=== PATIENT | female | born 1970 | race Caucasian/White ===

== ENCOUNTER 2019-08-03 16:56 | Emergency (ER) | payer SELFPAY ==
[2019-08-03 18:12] VITALS: BP 146/93
--- NOTE | 2019-08-03 19:13 | RADIOLOGY REPORT (SQ) ---
EXAM DESCRIPTION: CHEST SINGLE VIEW IMAGES COMPLETED DATE/TIME: 08/03/2019 7:03 pm REASON FOR STUDY: cough COMPARISON: None. EXAM PARAMETERS: NUMBER OF VIEWS: One view. TECHNIQUE: Single frontal radiographic view of the chest acquired. RADIATION DOSE: NA LIMITATIONS: None. FINDINGS: LUNGS AND PLEURA: No opacities, masses or pneumothorax. No pleural effusion. MEDIASTINUM AND HILAR STRUCTURES: No masses. Contour normal. HEART AND VASCULAR STRUCTURES: Heart normal in size. Normal vasculature. BONES: No acute findings. HARDWARE: None in the chest. OTHER: No other significant finding. IMPRESSION: NO ACUTE RADIOGRAPHIC FINDING IN THE CHEST. TECHNICAL DOCUMENTATION: JOB ID: [id number] 2010 [employer]- All Rights Reserved Reading location - IP/workstation name: [email or web address]
== END 2019-08-03 20:30 | disposition left against medical advice (07) ==
LOC: ER 16:56
DX: Z53.21 Procedure and treatment not carried out due to patient leaving prior to being seen by health care provider (principal)
CPT/HCPCS: 71045

== ENCOUNTER 2020-01-18 23:05 | Inpatient (IN) | payer SELFPAY ==
[2020-01-19] MEDS ORDERED: LORAZEPAM INJ 2 MG/1 ML VIAL IV ONE ×5 (02:08→07:45)
[2020-01-19] MEDS ORDERED: ACETAMINOPHEN 325 MG TABLET PO ONE ×2 (02:08→07:26)
--- NOTE | 2020-01-19 02:35 | ER Document Report ---
ED Medical Screen (RME) - General Stated Complaint: BOIL ON ARM Time Seen by Provider: 01/19/20 02:08 Notes: 49-year-old female with chief complaint of painful, red, worsening area to the right axilla/breast. Noted to have a low-grade fever in triage. Denies IV drug abuse. She does report history of abscesses and MRSA in the past. Past medical history of asthma and is on psychiatric medications. History is somewhat limited although patient also states that she fell in the bathroom, hit the side of her head, and vomited. - Related Data Allergies/Adverse Reactions: levofloxacin [From Levaquin] Allergy (Verified 08/03/19 17:58) sulfamethoxazole [From Bactrim] Allergy (Verified 08/03/19 17:58) trimethoprim [From Bactrim] Allergy (Verified 08/03/19 17:58) Past Medical History - Past Medical History Cardiac Medical History: Reports: Hx Hypercholesterolemia Pulmonary Medical History: Reports: Hx Asthma Past Surgical History: Reports: Hx Section, Hx Hysterectomy, Hx Tonsillectomy Physical Exam - Vital signs Vitals: Temp Pulse Resp BP Pulse Ox 100.8 F H 116 H 20 149/98 H 98 01/18/20 23:49 01/18/20 23:49 01/18/20 23:49 01/18/20 23:49 01/18/20 23:49 - Skin Skin irregularity: other - Erythema and questionable induration along the right axillary area extending to the right outer breast. No overt head noted. Course - Re-evaluation Re-evalutation: 01/19/20 02:12 Patient is extremely erratic with twitching, grunting, and constant movements. She denies methamphetamines. Updated charge nurse and requested a room. I have greeted and performed a rapid initial assessment of this patient. A comprehensive ED assessment and evaluation of the patient, analysis of test results and completion of the medical decision making process will be conducted by additional ED providers. - Vital Signs Vital signs: Temp Pulse Resp BP Pulse Ox 100.8 F H 116 H 20 149/98 H 98 01/18/20 23:49 01/18/20 23:49 01/18/20 23:49 01/18/20 23:49 01/18/20 23:49
[2020-01-19 03:11] LABS: HEMOGLOBIN 11.5 g/dL (12.0-15.5); MEAN CORPUSCULAR HGB CONC 33.8 g/dL (32.0-36.0); MEAN CORPUSCULAR VOLUME 98 fl (80-97); PLATELET COUNT 203 10^3/uL (150-450); RED BLOOD COUNT 3.49 10^6/uL (3.72-5.28); RED CELL DISTRIBUTION WIDTH 14.4 % (11.5-14.0); WHITE BLOOD COUNT 15.2 10^3/uL (4.0-10.5)
--- NOTE | 2020-01-19 03:13 | RADIOLOGY REPORT (SQ) ---
EXAM DESCRIPTION: CT HEAD WITHOUT IV CONTRAST COMPLETED DATE/TME: 01/19/2020 02:58 CLINICAL HISTORY: head injury, vomited COMPARISON: None available TECHNIQUE: Axial CT of the head obtained from the skull apex to the skull base without contrast. FINDINGS: No acute intracranial hemorrhage identified. No mass, mass effect, shift of the midline, abnormal extra-axial fluid collection or CT evidence of acute ischemic change identified. The ventricular system is unremarkable. No acute abnormalities of the supratentorial white matter, basal ganglia, cerebellum, or brainstem. The visualized paranasal sinuses and the mastoid air cells are relatively well aerated. No skull fracture identified. Visualized orbits and globes are unremarkable. IMPRESSION: 1. No acute intracranial abnormality identified. This exam was performed according to our departmental dose-optimization program, which includes automated exposure control, adjustment of the mA and/or kV according to patient size and/or use of iterative reconstruction technique.
--- NOTE | 2020-01-19 03:20 | RADIOLOGY REPORT (SQ) ---
EXAM DESCRIPTION: CT CERVICAL SPINE WITHOUT IV CONTRAST COMPLETED DATE/TME: 01/19/2020 02:58 CLINICAL HISTORY: head injury, vomited COMPARISON: None available TECHNIQUE: Axial CT of the cervical spine obtained without contrast. Motion artifact predominantly affecting visualization of the C4 and C5 vertebrae. FINDINGS: Straightening of the cervical lordosis may be secondary to patient positioning. The atlantoaxial, atlantodental, and occipitoatlantal intervals are preserved. No fracture identified. Vertebral body height preserved. Prevertebral soft tissues are unremarkable. Intervertebral disc height relatively well-preserved. Mild multilevel facet arthropathy. Visualized skull base is intact. No fracture of the visualized facial bones. Visualized mastoid air cells and paranasal sinuses are well aerated. Visualized thyroid is unremarkable. No cervical lymphadenopathy. No pneumothorax in the visualized lung apices. Atherosclerotic vascular calcification. IMPRESSION: 1. No acute fracture or subluxation of the cervical spine. Mild motion artifact. If the patient continues to have pain follow-up imaging may be helpful. This exam was performed according to our departmental dose-optimization program, which includes automated exposure control, adjustment of the mA and/or kV according to patient size and/or use of iterative reconstruction technique.
[2020-01-19 03:26] LABS: ALBUMIN 4.6 g/dL (3.5-5.0); ALKALINE PHOSPHATASE 134 U/L (38-126); ANION GAP 16 (5-19); ASPARTATE AMINO TRANSFERASE 64 U/L (14-36); BILIRUBIN,DIRECT 0.4 mg/dL (0.0-0.4); BLOOD UREA NITROGEN 9 mg/dL (7-20); CALCIUM 9.6 mg/dL (8.4-10.2); CARBON DIOXIDE 21 mmol/L (22-30); CHLORIDE 100 mmol/L (98-107); GLUCOSE 123 mg/dL (75-110); POTASSIUM 3.5 mmol/L (3.6-5.0); TOTAL PROTEIN 7.6 g/dL (6.3-8.2)
[2020-01-19 03:28] LABS: ABSOLUTE LYMPHOCYTES# (MANUAL) 0.8 10^3/uL (0.5-4.7); ABSOLUTE MONOCYTES # (MANUAL) 0.6 10^3/uL (0.1-1.4); ALCOHOL < 10 mg/dL (NONE DETECTED); BASOPHILS % (MANUAL) 0 % (0-2); EOSINOPHILS % (MANUAL) 1 % (0-6); LYMPHOCYTES % (MANUAL) 5 % (13-45); MONOCYTES % (MANUAL) 4 % (3-13); SEGMENTED NEUTROPHILS % (MAN) 90 % (42-78); TOTAL CELLS COUNTED 100
[2020-01-19 03:30] LABS: ANISOCYTOSIS SLIGHT; PLATELET COMMENT ADEQUATE; POIKILOCYTOSIS SLIGHT; POLYCHROMASIA SLIGHT; STOMATOCYTES SLIGHT
[2020-01-19] MEDS ORDERED: VANCOMYCIN HCL INJ 1000 MG VIAL IV ONE (03:33)
[2020-01-19 03:35] LABS: URINE BARBITURATES SCREEN NEGATIVE; URINE BENZODIAZEPINES SCREEN NEGATIVE; URINE COCAINE SCREEN NEGATIVE; URINE METHADONE SCREEN NEGATIVE; URINE PHENCYCLIDINE SCREEN NEGATIVE
[2020-01-19 03:44] LABS: URINE MARIJUANA (THC) SCREEN UNCONFIRMED POSITIVE
--- NOTE | 2020-01-19 05:41 | RADIOLOGY REPORT (SQ) ---
Right breast ultrasound: 01/19/2020 4:39 AM [facility] COMPARISON: None available TECHNIQUE: Multiple grayscale images of the area(s) of interest within the breast were obtained. HISTORY: 49-year-old patient with concerns for abscess within the right breast. FINDINGS: There is a hypoechoic area noted within the area of pain measuring 1.9 x 0.5 x 0.8 cm. This likely represents a morphologically normal-appearing lymph node. This may represent a small cyst or portions of the axillary lymph node. The soft tissues were assessed approximately 4 to 5 cm of depth. Evaluation is limited due to lack of patient cooperation. No obvious focal fluid collection is seen at the area of concern. IMPRESSION: There is a morphologically normal-appearing lymph node at the area of concern. No focal fluid collection is seen. BI-RADS 0: Needs additional imaging The patient should return for diagnostic mammography and focused right breast ultrasound on an outpatient basis to better assess these areas.
[2020-01-19] MEDS ORDERED: NORMAL SALINE 1000 ML 1,000 ML IV ONE ×2 (05:53→06:43)
--- NOTE | 2020-01-19 05:55 | ER Document Report ---
ED General - General Chief Complaint: Abscess Stated Complaint: BOIL ON ARM Time Seen by Provider: 01/19/20 02:08 Notes: Patient is a 49-year-old female with chief complaint of painful, red, worsening area to the right axilla/breast. Noted to have a low-grade fever in triage. Denies IV drug abuse. She does report history of abscesses and MRSA in the past. Past medical history of asthma and is on psychiatric medications. History is somewhat limited although patient also states that she fell in the bathroom, hit the side of her head, and vomited. - Related Data Allergies/Adverse Reactions: levofloxacin [From Levaquin] Allergy (Verified 08/03/19 17:58) sulfamethoxazole [From Bactrim] Allergy (Verified 08/03/19 17:58) trimethoprim [From Bactrim] Allergy (Verified 08/03/19 17:58) Home Medications: metoprolol,triamiterne, atorvastatin, singular, oprazole, b uspar, flexeril, lyrica, remeron, qvar Past Medical History - General Information source: Patient - Social History Smoking Status: Current Every Day Smoker Drug Abuse: Marijuana, Methamphetamine Lives with: Alone Family History: None - Past Medical History Cardiac Medical History: Reports: Hx Hypercholesterolemia, Hx Hypertension Pulmonary Medical History: Reports: Hx Asthma Past Surgical History: Reports: Hx Section, Hx Hysterectomy, Hx Tonsillectomy Review of Systems - Review of Systems Constitutional: See HPI EENT: No symptoms reported Cardiovascular: No symptoms reported Respiratory: No symptoms reported Gastrointestinal: No symptoms reported Genitourinary: No symptoms reported Female Genitourinary: No symptoms reported Musculoskeletal: See HPI Skin: See HPI Hematologic/Lymphatic: No symptoms reported Neurological/Psychological: See HPI Physical Exam - Vital signs Vitals: Temp Pulse Resp BP Pulse Ox 100.8 F H 116 H 20 149/98 H 98 01/18/20 23:49 01/18/20 23:49 01/18/20 23:49 01/18/20 23:49 01/18/20 23:49 - Notes Notes: GENERAL: Alert, very restless, grimacing, never stops moving, agitated HEAD: Normocephalic, atraumatic. EYES: Pupils equal, round, and reactive to light. Extraocular movements intact. ENT: Oral mucosa dry, tongue midline. Oropharynx unremarkable. Airway patent. NECK: Full range of motion. Supple. Trachea midline. No lymphadenopathy. LUNGS: Clear to auscultation bilaterally, no wheezes, rales, or rhonchi. No respiratory distress. Non-tender chest wall. HEART: Tachycardic, normal rhythm, no murmur ABDOMEN: Soft, non-tender. Non-distended. EXTREMITIES: Moves all 4 extremities spontaneously. No edema, normal radial and dorsalis pedis pulses bilaterally. No cyanosis. BACK: no cervical, thoracic, lumbar midline tenderness. No saddle anesthesia, normal distal neurovascular exam. Moves all extremities in full range of motion. NEUROLOGICAL: Alert and oriented to person and place along with some events but difficult historian. Pressured speech. Cranial nerves II through XII grossly intact. Strength 5/5 in all extremities. PSYCH: Patient erratic, agitated, restless SKIN: Erythema and tenderness with warmth to the right axillary area generally and spreading to the right lateral breast area consistent with cellulitis. No i nduration fluctuance suggesting abscess. Course - Re-evaluation Re-evalutation: Patient is erratic, grunting, grimacing, and conversational but difficult to get history other. She appears to be under the influence of methamphetamines. She is tachycardic. She does have an area of cellulitis but I do not see an abscess. We will confirm with ultrasound. Giving Ativan, work-up pending. Patient states she hit her head and vomited but I do not see any signs of trauma over the head or otherwise. I did also do not smell any vomit and patient reportedly did this in the emergency department. CAT scan of the head and neck were performed and unremarkable. Patient slightly improved after medication, CBC shows leukocytosis with elevation of neutrophils, chemistry nonspecific, urine was obtained and urine drug screen does show most likely a large amount of methamphetamines per the result. Attempted to get an initial EKG without success without patient being well sedated. Blood culture sent, lactic acid not elevated. Ultrasound showing no evidence of abscess over the area in question. On reevaluation patient improved, heart rate is 105, she is more calm. Chest x- ray pending. Urinalysis without overt infection. Patient reevaluate again, she is again very erratic, she was found to have a higher fever at 102 F, she is very tachycardic again, we attempt to give Haldol and more Ativan. At this point with recurring fevers, persistent tachycardia, difficult to control methamphetamine symptoms, cellulitis, I discussed with Dr. Mckinley, he recommends admission to the hospitalist. I did discuss with patient and she did state understanding. 01/19/[address] Rubi, patient accepted for admission. - Vital Signs Vital signs: Temp Pulse Resp BP Pulse Ox 102.4 F H 116 H 34 H 156/87 H 95 01/19/20 07:00 01/18/20 23:49 01/19/20 06:00 01/19/20 05:00 01/19/20 05:01 - Laboratory Result Diagrams: 01/19/20 02:41 01/19/20 02:41 Laboratory results interpreted by me: 01/19/20 01/19/20 01/19/20 02:41 02:41 02:41 WBC 15.2 H RBC 3.49 L Hgb 11.5 L Hct 34.0 L MCV 98 H RDW 14.4 H Seg Neuts % (Manual) 90 H Lymphocytes % (Manual) 5 L Abs Neuts (Manual) 13.7 H Potassium 3.5 L Carbon Dioxide 21 L Glucose 123 H AST 64 H ALT 51 H Alkaline Phosphatase 134 H Creatine Kinase 789 H Urine Protein Urine Ketones Urine Blood Urine Urobilinogen Ur Leukocyte Esterase 01/19/20 02:41 WBC RBC Hgb Hct MCV RDW Seg Neuts % (Manual) Lymphocytes % (Manual) Abs Neuts (Manual) Potassium Carbon Dioxide Glucose AST ALT Alkaline Phosphatase Creatine Kinase Urine Protein 100 H Urine Ketones 20 H Urine Blood SMALL H Urine Urobilinogen 4.0 H Ur Leukocyte Esterase TRACE H Discharge - Discharge Clinical Impression: Methamphetamine abuse, Tachycardia Cellulitis Qualifiers: Site of cellulitis: extremity Site of cellulitis of extremity: axilla Lateralit y: right Qualified Code(s): L03.111 - Cellulitis of right axilla Fever Qualifiers: Fever type: unspecified Qualified Code(s): R50.9 - Fever, unspecified Leukocytosis Qualifiers: Leukocytosis type: unspecified Qualified Code(s): D72.829 - Elevated white blood cell count, unspecified Condition: Stable Disposition: ADMITTED INPATIENT Admitting Provider: Greyson (Hospitalist) Unit Admitted: [facility]
[2020-01-19 06:32] LABS: APPEARANCE,URINE SLIGHTLY-CLOUDY; BILIRUBIN,URINE NEGATIVE (NEGATIVE); COLOR,URINE AMBER; GLUCOSE, URINE NEGATIVE (NEGATIVE); KETONES,URINE 20 mg/dL (NEGATIVE); LEUKOCYTE ESTERASE,URINE TRACE (NEGATIVE); NITRITE,URINE NEGATIVE (NEGATIVE); PROTEIN,URINE 100 mg/dL (NEGATIVE); URINE SPECIFIC GRAVITY 1.027
[2020-01-19] MEDS ORDERED: CEFTRIAXONE 1 GM/D5W RTU 1 GM/50 ML RTUPB IV ONE (06:42)
[2020-01-19] MEDS ORDERED: HALOPERIDOL LACTATE INJ 5 MG/1 ML VIAL IM ONE (06:53)
[2020-01-19] MEDS ORDERED: ACETAMINOPHEN 650 MG SUPP.RECT PR ONE (07:34)
--- NOTE | 2020-01-19 07:34 | RADIOLOGY REPORT (SQ) ---
EXAM DESCRIPTION: XR CHEST 1 VIEW COMPLETED DATE/TME: 01/19/2020 06:16 EXAM DESCRIPTION: CHEST SINGLE VIEW CLINICAL HISTORY: fever COMPARISON: 08/03/2019 FINDINGS: Single frontal radiograph view of the chest. Cardiomediastinal silhouette: Normal size and contour. Lungs: No consolidation, pneumothorax, or pleural effusion. Low lung volumes. Leads overlie the chest. Bones: No acute osseous abnormality. Upper abdomen: No abnormality identified. IMPRESSION: 1. No acute pulmonary process identified. Low lung volumes.
[2020-01-19] MEDS ORDERED: DEXTROSE 40% GEL 15 GM TUBE PO PRN ×2 (08:55)
[2020-01-19] MEDS ORDERED: DEXTROSE 50%-WATER 25 GM/50 ML DISP.SYRIN IV PRN ×2 (08:55)
[2020-01-19] MEDS ORDERED: GLUCAGON,HUMAN RECOMB 1 MG INJ SUBCUT PRN (08:55)
[2020-01-19] MEDS ORDERED: VANCOMYCIN HCL 0 MG in DEXTROSE 5%-WATER 250 ML IV NR (09:00)
[2020-01-19] MEDS: LORAZEPAM INJ 2 MG/1 ML VIAL IV PRN ×7 (11:16→23:45)
[2020-01-19] MEDS: POTASSI CL 20 MEQ/D5-1/2NS 1L 1,000 ML IV PRN (14:43)
--- NOTE | 2020-01-19 17:13 | PDOC H&P ---
History of Present Illness Admission Date/PCP: 01/19/20 08:19 History of Present Illness: MARCIN TORO is a 49 year old female who presented to the ER early this morning. History is extremely limited because the patient is in no condition to give me any sort of a history whatsoever. Apparently she had fallen in the bathroom at home and had multiple scans in the ER that were negative. She was found to have what looks like a cellulitis associated with the right breast. Ultrasound was done and it was negative for abscess. She was febrile in the ER. She apparently had been doing methamphetamine. It showed up on her urine drug screen and she denied it first and later on admitted to doing it. I am told all this by the ER provider who was seeing her. By the time I got down to the ER to see her she was extremely restless and agitated and was not answering questions and whenever you try to examine her she would moan and groan and writhe around on the gurney. She got some fluids and several doses of Ativan to calm her down and was given a dose of vancomycin. Past Medical History Cardiac Medical History: Reports: Hyperlipidema, Hypertension Pulmonary Medical History: Reports: Asthma Psychiatric Medical History: Denies: Depression - unknown Past Surgical History Past Surgical History: Reports: Section, Hysterectomy, Tonsillectomy Social History Lives with: Alone Smoking Status: Current Every Day Smoker Family History Family History: None Parental Family History Reviewed: No - Unable to obtain Children Family History Reviewed: No - Unable to obtain Sibling(s) Family History Reviewed.: No - Unable to obtain Medication/Allergy Home Medications: Acyclovir [Acyclovir 400 mg Tablet] 400 mg PO BID 01/19/20 Atorvastatin Calcium [Lipitor 20 mg Tablet] 20 mg PO QHS 01/19/20 Beclomethasone Dipropionate [Qvar Redihaler] 80 mcg IH Q12 01/19/20 Buspirone HCl [Buspar 10 mg Tablet] 10 mg PO BID 01/19/20 Cyclobenzaprine HCl [Flexeril 10 mg Tablet] 10 mg PO Q8HP PRN 01/19/20 Furosemide [Lasix 20 mg Tablet] 20 mg PO DAILY 01/19/20 Linaclotide [Linzess 145 Mcg Capsule] 145 mcg PO DAILY 01/19/20 Metoprolol Tartrate [Lopressor 50 mg Tablet] 50 mg PO DAILY 01/19/20 Mirtazapine [Remeron] 30 mg PO QHS 01/19/20 Montelukast Sodium [Singulair 10 mg Tablet] 10 mg PO QPM 01/19/20 Nitroglycerin [Nitrostat 0.4 mg (1/150 Gr) Tabs 25/Bottle] 0.4 mg SL Q5MP PRN 01/19/20 Omeprazole 40 mg PO DAILY 01/19/20 Triamterene/Hydrochlorothiazid [Triamterene-Hctz 37.5-25 mg Tb] 1 tab PO DAILY 01/19/20 Allergies/Adverse Reactions: levofloxacin [From Levaquin] Allergy (Verified 08/03/19 17:58) sulfamethoxazole [From Bactrim] Allergy (Verified 08/03/19 17:58) trimethoprim [From Bactrim] Allergy (Verified 08/03/19 17:58) Review of Systems ROS unobtainable: Due to mental status Physical Exam Vital Signs: Temp Pulse Resp BP Pulse Ox 98.7 F 134 H 22 H 125/72 95 01/19/20 13:24 01/19/20 13:24 01/19/20 13:24 01/19/20 13:24 01/19/20 13:24 Intake & Output 01/18/20 01/19/20 01/20/20 06:59 06:59 06:59 Intake Total 270 2050 Balance 270 2050 Weight 80.3 kg General appearance: PRESENT: disheveled, obese, other - Moderate distress. ABSENT: cooperative Head exam: PRESENT: atraumatic, normocephalic Neck exam: PRESENT: full ROM. ABSENT: JVD, lymphadenopathy Respiratory exam: PRESENT: clear to auscultation elysia, symmetrical, tachypnea, unlabored. ABSENT: accessory muscle use, chest wall tenderness, crackles, prolonged expiratory phas, rhonchi, wheezes Cardiovascular exam: PRESENT: tachycardia Pulses: PRESENT: normal carotid pulses Vascular exam: PRESENT: normal capillary refill Breast: PRESENT: Other - Her right breast was erythematous up into her axilla with the area of induration on the superior and medial aspect GI/Abdominal exam: PRESENT: normal bowel sounds, soft. ABSENT: distended, guarding, rebound, tenderness Extremities exam: ABSENT: clubbing, pedal edema Musculoskeletal exam: PRESENT: normal inspection. ABSENT: deformity Neurological exam: PRESENT: altered. ABSENT: motor sensory deficit - Nothing discernible, she was moving all 4 extremities independently and voluntarily in quite a vigorous manner and displayed no evidence of any facial asymmetry Psychiatric exam: PRESENT: agitated Skin exam: PRESENT: dry, warm Results Laboratory Results: 01/19/20 02:41 01/19/20 02:41 01/19/20 01/19/20 01/19/20 02:41 02:41 02:41 WBC 15.2 H RBC 3.49 L Hgb 11.5 L Hct 34.0 L MCV 98 H MCH 33.0 MCHC 33.8 RDW 14.4 H Plt Count 203 Seg Neutrophils % Not Reportable Sodium 137.0 Potassium 3.5 L Chloride 100 Carbon Dioxide 21 L Anion Gap 16 BUN 9 Creatinine 0.64 Est GFR ( Amer) > 60 Glucose 123 H Lactic Acid 0.9 Calcium 9.6 Total Bilirubin 1.0 AST 64 H Alkaline Phosphatase 134 H Total Protein 7.6 Albumin 4.6 Serum HCG, Qual Urine Color Urine Appearance Urine pH Ur Specific [place] Urine Protein Urine Glucose (UA) Urine Ketones Urine Blood Urine Nitrite Ur Leukocyte Esterase Urine WBC (Auto) Urine RBC (Auto) 01/19/20 01/19/20 02:41 02:41 WBC RBC Hgb Hct MCV MCH MCHC RDW Plt Count Seg Neutrophils % Sodium Potassium Chloride Carbon Dioxide Anion Gap BUN Creatinine Est GFR ( Amer) Glucose Lactic Acid Calcium Total Bilirubin AST Alkaline Phosphatase Total Protein Albumin Serum HCG, Qual NEGATIVE Urine Color [place] Urine Appearance SLIGHTLY-CLOUDY Urine pH 5.0 Ur Specific [place] 1.027 Urine Protein 100 H Urine Glucose (UA) NEGATIVE Urine Ketones 20 H Urine Blood SMALL H Urine Nitrite NEGATIVE Ur Leukocyte Esterase TRACE H Urine WBC (Auto) 19 Urine RBC (Auto) 6 01/19/20 02:41 Creatine Kinase 789 H Impressions: Cervical Spine CT 01/19/20 02:09 IMPRESSION: 1. No acute fracture or subluxation of the cervical spine. Mild motion artifact. If the patient continues to have pain follow-up imaging may be helpful. This exam was performed according to our departmental dose-optimization program, which includes automated exposure control, adjustment of the mA and/or kV according to patient size and/or use of iterative reconstruction technique. Head CT 01/19/20 02:09 IMPRESSION: 1. No acute intracranial abnormality identified. This exam was performed according to our departmental dose-optimization program, which includes automated exposure control, adjustment of the mA and/or kV according to patient size and/or use of iterative reconstruction technique. Breast Ultrasound 01/19/20 02:10 IMPRESSION: There is a morphologically normal-appearing lymph node at the area of concern. No focal fluid collection is seen. BI-RADS 0: Needs additional imaging The patient should return for diagnostic mammography and focused right breast ultrasound on an outpatient basis to better assess these areas. Chest X-Ray 01/19/20 05:50 IMPRESSION: 1. No acute pulmonary process identified. Low lung volumes. Assessment and Plan - Diagnosis (1) Sepsis Qualifiers: Sepsis type: sepsis due to unspecified organism Sepsis acute organ dysfunction status: without acute organ dysfunction Qualified Code(s): A41.9 - Sepsis, unspecified organism Is this a current diagnosis for this admission?: Yes (2) Cellulitis of right breast Is this a current diagnosis for this admission?: Yes (3) Methamphetamine abuse Is this a current diagnosis for this admission?: Yes (4) Tachycardia Is this a current diagnosis for this admission?: Yes (5) Obesity Qualifiers: Obesity type: unspecified obesity type Obesity classification: adult class 1 (BMI 30 - 34.9) Serious obesity comorbidity presence: without serious comorbidity Body mass index: BMI 30.0-30.9 Qualified Code(s): E66.9 - Obesity, unspecified; Z68.30 - Body mass index [BMI]30.0-30.9, adult Is this a current diagnosis for this admission?: Yes - Plan Summary Summary: Some of her tachycardia could be from sepsis, but I think it is probably more likely that it is from methamphetamine. It was a sinus tachycardia on her EKG. She has been getting as needed Ativan to keep her calm. In the setting of her methamphetamine intoxication, am going to refrain from giving her beta-blockers at this time. She is getting some IV fluids and has been started on vancomycin. Blood cultures are pending. Ultrasound was negative for abscess. - Time Time Spent with patient: 35 or more minutes Anticipated Discharge Disposition: Undetermined Anticipated Discharge Timeframe: Undetermined - Inpatient Certification Based on my medical assessment, after consideration of the patient's comorbidities, presenting symptoms, or acuity I expect that the services needed warrant INPATIENT care.: Yes I certify that my determination is in accordance with my understanding of Medicare's requirements for reasonable and necessary INPATIENT services [42 CFR 412.3e].: Yes Medical Necessity: Need Close Monitoring Due to Risk of Patient Decompensation, Need For IV Fluids, Need For Continuous Telemetry Monitoring, Need for IV Antibiotics, Risk of Complication if Not Cared For in Hospital
[2020-01-19] MEDS: VANCOMYCIN HCL 1,250 MG in DEXTROSE 5%-WATER 250 ML IV SCH (21:47)
[2020-01-20] MEDS: LORAZEPAM INJ 2 MG/1 ML VIAL IV PRN ×4 (05:13→14:28)
[2020-01-20] MEDS: POTASSI CL 20 MEQ/D5-1/2NS 1L 1,000 ML IV PRN (06:28)
[2020-01-20 06:36] LABS: HEMATOCRIT 29.9 % (36.0-47.0); HEMOGLOBIN 10.4 g/dL (12.0-15.5); MEAN CORPUSCULAR HEMOGLOBIN 33.7 pg (27.0-33.4); MEAN CORPUSCULAR HGB CONC 34.7 g/dL (32.0-36.0); MEAN CORPUSCULAR VOLUME 97 fl (80-97); PLATELET COUNT 188 10^3/uL (150-450); RED BLOOD COUNT 3.08 10^6/uL (3.72-5.28); RED CELL DISTRIBUTION WIDTH 13.9 % (11.5-14.0); WHITE BLOOD COUNT 10.8 10^3/uL (4.0-10.5)
[2020-01-20 06:56] LABS: ANION GAP 9 (5-19); BLOOD UREA NITROGEN 9 mg/dL (7-20); CALCIUM 8.3 mg/dL (8.4-10.2); CARBON DIOXIDE 23 mmol/L (22-30); CHLORIDE 102 mmol/L (98-107); GLUCOSE 140 mg/dL (75-110)
[2020-01-20] MEDS: POTASSI CL 20 MEQ/50 ML RIDER 20 MEQ/50 ML RTUPB IV SCH ×3 (08:38→14:29)
--- NOTE | 2020-01-20 09:42 | EKG REPORT ---
SEVERITY:- BORDERLINE ECG - SINUS TACHYCARDIA BORDERLINE R WAVE PROGRESSION, ANTERIOR LEADS BORDERLINE T ABNORMALITIES, ANTERIOR LEADS : Confirmed by: Lizbet Urbina 20-Jan-2020 09:41:29
[2020-01-20] MEDS: VANCOMYCIN HCL 1,250 MG in DEXTROSE 5%-WATER 250 ML IV SCH ×2 (10:48→22:30)
[2020-01-20] MEDS: ACETAMINOPHEN 325 MG TABLET PO PRN (15:17)
[2020-01-20] MEDS: NORMAL SALINE 1000 ML 1,000 ML with POTASSIUM CHLORIDE 20 MEQ, MAGNESIUM SULFATE 8 MEQ,... IV SCH ×5 (17:13)
--- NOTE | 2020-01-20 17:40 | PDOC PROGRESS REPORT ---
Subjective Date:: 01/20/20 Subjective:: No adverse events overnight. She had received several doses of Ativan overnight . Patient sister talked to the patient's nurse today and relayed the information that the patient likes various pills, cocaine, and methamphetamine, and that she drinks 18-24 beers a day. Reason For Visit: SEPSIS, CELLULITIS, METHAMPHETAMINE INTOXICATION Physical Exam Vital Signs: Temp Pulse Resp BP Pulse Ox 98.7 F 125 H 28 H 126/61 H 96 01/20/20 17:20 01/20/20 14:00 01/20/20 03:25 01/20/20 03:25 01/20/20 03:25 Intake & Output 01/19/20 01/20/20 01/21/20 06:59 06:59 06:59 Intake Total 270 3522 1019 Output Total 325 250 Balance 270 3197 769 Weight 80.3 kg 87.5 kg General appearance: PRESENT: no acute distress, disheveled, obese, other - She had just received some Ativan Respiratory exam: PRESENT: clear to auscultation elysia, symmetrical, unlabored. ABSENT: accessory muscle use, chest wall tenderness, crackles, prolonged expiratory phas, rhonchi, tachypnea, wheezes Cardiovascular exam: PRESENT: +S1, +S2, tachycardia Pulses: PRESENT: normal carotid pulses Vascular exam: PRESENT: normal capillary refill GI/Abdominal exam: PRESENT: normal bowel sounds, soft. ABSENT: distended, guarding, rebound, tenderness Extremities exam: ABSENT: clubbing, pedal edema Musculoskeletal exam: PRESENT: normal inspection. ABSENT: deformity Neurological exam: PRESENT: altered Skin exam: PRESENT: dry, warm Results Laboratory Results: 01/20/20 06:06 01/20/20 06:06 01/20/20 01/20/20 06:06 06:06 WBC 10.8 H RBC 3.08 L Hgb 10.4 L Hct 29.9 L MCV 97 MCH 33.7 H MCHC 34.7 RDW 13.9 Plt Count 188 Sodium 134.4 L Potassium 3.0 L* Chloride 102 Carbon Dioxide 23 Anion Gap 9 BUN 9 Creatinine 0.44 L Est GFR ( Amer) > 60 Glucose 140 H Calcium 8.3 L 01/19/20 02:41 Creatine Kinase 789 H Impressions: Cervical Spine CT 01/19/20 02:09 IMPRESSION: 1. No acute fracture or subluxation of the cervical spine. Mild motion artifact. If the patient continues to have pain follow-up imaging may be helpful. This exam was performed according to our departmental dose-optimization program, which includes automated exposure control, adjustment of the mA and/or kV according to patient size and/or use of iterative reconstruction technique. Head CT 01/19/20 02:09 IMPRESSION: 1. No acute intracranial abnormality identified. This exam was performed according to our departmental dose-optimization program, which includes automated exposure control, adjustment of the mA and/or kV according to patient size and/or use of iterative reconstruction technique. Breast Ultrasound 01/19/20 02:10 IMPRESSION: There is a morphologically normal-appearing lymph node at the area of concern. No focal fluid collection is seen. BI-RADS 0: Needs additional imaging The patient should return for diagnostic mammography and focused right breast ultrasound on an outpatient basis to better assess these areas. Chest X-Ray 01/19/20 05:50 IMPRESSION: 1. No acute pulmonary process identified. Low lung volumes. Assessment and Plan - Diagnosis (1) Sepsis Qualifiers: Sepsis type: sepsis due to unspecified organism Sepsis acute organ dysfunction status: without acute organ dysfunction Qualified Code(s): A41.9 - Sepsis, unspecified organism Is this a current diagnosis for this admission?: Yes (2) Cellulitis of right breast Is this a current diagnosis for this admission?: Yes (3) Methamphetamine abuse Is this a current diagnosis for this admission?: Yes (4) Tachycardia Is this a current diagnosis for this admission?: Yes (5) Obesity Qualifiers: Obesity type: unspecified obesity type Obesity classification: adult class 1 (BMI 30 - 34.9) Serious obesity comorbidity presence: without serious comorbidity Body mass index: BMI 30.0-30.9 Qualified Code(s): E66.9 - Obesity, unspecified; Z68.30 - Body mass index [BMI]30.0-30.9, adult Is this a current diagnosis for this admission?: Yes (6) Polysubstance abuse Is this a current diagnosis for this admission?: Yes (7) Alcohol withdrawal delirium Is this a current diagnosis for this admission?: Yes (8) Metabolic encephalopathy Is this a current diagnosis for this admission?: Yes (9) Toxic encephalopathy Is this a current diagnosis for this admission?: Yes (10) Hypokalemia Is this a current diagnosis for this admission?: Yes - Plan Summary Summary: She continues on antibiotics for her cellulitis. There was some polysubstance effect from methamphetamine, but she is also very likely in alcohol withdrawal. She is on as needed Ativan. We ordered a daily banana bag for her. We continue to monitor her very closely. We are also replacing electrolytes as needed. - Time Time Spent with patient: 15-24 minutes Anticipated Discharge Disposition: Undetermined Anticipated Discharge Timeframe: Undetermined
[2020-01-21 07:20] LABS: HEMATOCRIT 28.3 % (36.0-47.0); HEMOGLOBIN 9.6 g/dL (12.0-15.5); MEAN CORPUSCULAR HGB CONC 33.8 g/dL (32.0-36.0); MEAN CORPUSCULAR VOLUME 98 fl (80-97); PLATELET COUNT 232 10^3/uL (150-450); RED BLOOD COUNT 2.89 10^6/uL (3.72-5.28); RED CELL DISTRIBUTION WIDTH 14.2 % (11.5-14.0); WHITE BLOOD COUNT 7.9 10^3/uL (4.0-10.5)
[2020-01-21 07:41] LABS: ANION GAP 9 (5-19); BLOOD UREA NITROGEN 6 mg/dL (7-20); CALCIUM 8.1 mg/dL (8.4-10.2); CARBON DIOXIDE 22 mmol/L (22-30); CHLORIDE 104 mmol/L (98-107); GLUCOSE 113 mg/dL (75-110); POTASSIUM 3.2 mmol/L (3.6-5.0)
[2020-01-21] MEDS: VANCOMYCIN HCL 1,250 MG in DEXTROSE 5%-WATER 250 ML IV SCH ×2 (09:11→21:28)
[2020-01-21] MEDS: POTASSI CL 20 MEQ/D5-1/2NS 1L 1,000 ML IV PRN (09:23)
[2020-01-21] MEDS: LORAZEPAM INJ 2 MG/1 ML VIAL IV PRN ×3 (09:28→23:28)
[2020-01-21] MEDS: POTASSI CL 20 MEQ/50 ML RIDER 20 MEQ/50 ML RTUPB IV SCH ×2 (11:55→13:53)
[2020-01-21] MEDS: NORMAL SALINE 1000 ML 1,000 ML with POTASSIUM CHLORIDE 20 MEQ, MAGNESIUM SULFATE 8 MEQ,... IV SCH ×5 (17:24)
--- NOTE | 2020-01-21 17:45 | PDOC PROGRESS REPORT ---
Subjective Date:: 01/21/20 Subjective:: No adverse events overnight. She did not require any Ativan overnight. No feve rs. She is tolerating clear liquids and would like to have her diet advanced. Heart rate has improved. Reason For Visit: SEPSIS, CELLULITIS, METHAMPHETAMINE INTOXICATION Physical Exam Vital Signs: Temp Pulse Resp BP Pulse Ox 98.7 F 100 28 H 126/61 H 96 01/21/20 10:00 01/21/20 14:00 01/20/20 03:25 01/20/20 03:25 01/20/20 03:25 Intake & Output 01/20/20 01/21/20 01/22/20 06:59 06:59 06:59 Intake Total 3522 1419 2254 Output Total 325 825 Balance 3197 594 2254 Weight 87.5 kg 86.2 kg General appearance: PRESENT: no acute distress, disheveled, obese Respiratory exam: PRESENT: clear to auscultation elysia, symmetrical, unlabored. ABSENT: accessory muscle use, chest wall tenderness, crackles, prolonged expiratory phas, rhonchi, tachypnea, wheezes Cardiovascular exam: PRESENT: +S1, +S2, RRR Pulses: PRESENT: normal carotid pulses Vascular exam: PRESENT: normal capillary refill GI/Abdominal exam: PRESENT: normal bowel sounds, soft. ABSENT: distended, guarding, rebound, tenderness Extremities exam: ABSENT: clubbing, pedal edema Musculoskeletal exam: PRESENT: normal inspection. ABSENT: deformity Neurological exam: PRESENT: Awake, oriented to person, oriented to place Skin exam: PRESENT: dry, warm Results Laboratory Results: 01/21/20 06:52 01/21/20 06:52 01/21/20 01/21/20 06:52 06:52 WBC 7.9 RBC 2.89 L Hgb 9.6 L Hct 28.3 L MCV 98 H MCH 33.0 MCHC 33.8 RDW 14.2 H Plt Count 232 Sodium 134.5 L Potassium 3.2 L Chloride 104 Carbon Dioxide 22 Anion Gap 9 BUN 6 L Creatinine 0.43 L Est GFR ( Amer) > 60 Glucose 113 H Calcium 8.1 L 01/19/20 02:41 Creatine Kinase 789 H Impressions: Cervical Spine CT 01/19/20 02:09 IMPRESSION: 1. No acute fracture or subluxation of the cervical spine. Mild motion artifact. If the patient continues to have pain follow-up imaging may be helpful. This exam was performed according to our departmental dose-optimization program, which includes automated exposure control, adjustment of the mA and/or kV according to patient size and/or use of iterative reconstruction technique. Head CT 01/19/20 02:09 IMPRESSION: 1. No acute intracranial abnormality identified. This exam was performed according to our departmental dose-optimization program, which includes automated exposure control, adjustment of the mA and/or kV according to patient size and/or use of iterative reconstruction technique. Breast Ultrasound 01/19/20 02:10 IMPRESSION: There is a morphologically normal-appearing lymph node at the area of concern. No focal fluid collection is seen. BI-RADS 0: Needs additional imaging The patient should return for diagnostic mammography and focused right breast ultrasound on an outpatient basis to better assess these areas. Chest X-Ray 01/19/20 05:50 IMPRESSION: 1. No acute pulmonary process identified. Low lung volumes. Assessment and Plan - Diagnosis (1) Sepsis Qualifiers: Sepsis type: sepsis due to unspecified organism Sepsis acute organ dysfunction status: without acute organ dysfunction Qualified Code(s): A41.9 - Sepsis, unspecified organism Is this a current diagnosis for this admission?: Yes (2) Cellulitis of right breast Is this a current diagnosis for this admission?: Yes (3) Methamphetamine abuse Is this a current diagnosis for this admission?: Yes (4) Tachycardia Is this a current diagnosis for this admission?: Yes (5) Obesity Qualifiers: Obesity type: unspecified obesity type Obesity classification: adult class 1 (BMI 30 - 34.9) Serious obesity comorbidity presence: without serious comorbidity Body mass index: BMI 30.0-30.9 Qualified Code(s): E66.9 - Obesity, unspecified; Z68.30 - Body mass index [BMI]30.0-30.9, adult Is this a current diagnosis for this admission?: Yes (6) Polysubstance abuse Is this a current diagnosis for this admission?: Yes (7) Alcohol withdrawal delirium Is this a current diagnosis for this admission?: Yes (8) Metabolic encephalopathy Is this a current diagnosis for this admission?: Yes (9) Toxic encephalopathy Is this a current diagnosis for this admission?: Yes (10) Hypokalemia Is this a current diagnosis for this admission?: Yes - Plan Summary Summary: She continues on antibiotics for her cellulitis. There was some polysubstance effect from methamphetamine, but she is also very likely in alcohol withdrawal. She is on as needed Ativan. We ordered a daily banana bag for her. We continue to monitor her very closely. We are also replacing electrolytes as needed. She seems to be improving as she is not requiring as much Ativan as she was initially. Cultures remain negative. - Time Time Spent with patient: 15-24 minutes Anticipated Discharge Disposition: Home, Self Care Anticipated Discharge Timeframe: Undetermined
[2020-01-21] MEDS ORDERED: ALBUTEROL SULFATE 0.083% NEB 2.5 MG/3 ML AMPUL NEB PRN (19:44)
[2020-01-21] MEDS ORDERED: IBUPROFEN 400 MG TABLET PO ONE (20:00)
[2020-01-21 21:54] LABS: VANCOMYCIN,TROUGH 5.2 ug/mL (5.0-20.0)
[2020-01-22] MEDS: POTASSI CL 20 MEQ/D5-1/2NS 1L 1,000 ML IV PRN (04:00)
[2020-01-22 07:44] LABS: HEMATOCRIT 28.7 % (36.0-47.0); HEMOGLOBIN 9.8 g/dL (12.0-15.5); MEAN CORPUSCULAR HEMOGLOBIN 33.9 pg (27.0-33.4); MEAN CORPUSCULAR HGB CONC 34.1 g/dL (32.0-36.0); MEAN CORPUSCULAR VOLUME 99 fl (80-97); PLATELET COUNT 257 10^3/uL (150-450); RED CELL DISTRIBUTION WIDTH 14.5 % (11.5-14.0); WHITE BLOOD COUNT 6.7 10^3/uL (4.0-10.5)
[2020-01-22 08:02] LABS: ANION GAP 10 (5-19); BLOOD UREA NITROGEN 5 mg/dL (7-20); CALCIUM 8.2 mg/dL (8.4-10.2); CARBON DIOXIDE 20 mmol/L (22-30); CHLORIDE 107 mmol/L (98-107); GLUCOSE 111 mg/dL (75-110); POTASSIUM 3.6 mmol/L (3.6-5.0)
[2020-01-22] MEDS: LORAZEPAM INJ 2 MG/1 ML VIAL IV PRN (08:25)
[2020-01-22] MEDS: ACETAMINOPHEN 325 MG TABLET PO PRN (08:25)
--- OUTSIDE RECORDS SUMMARY | 2020-01-22 08:52 | XMS REPORT ---
:1970 Author Organization [facility] Address [facility] [place] [address] [place] [address] Care Team Providers Name Role Phone BONIFACIO TURNER Primary Care Physician Unavailable SARAH BURNS Attending Clinician Unavailable HARISH PENG Attending Clinician Unavailable KEV WITT Attending Clinician Unavailable VICKI GAYTAN Attending Clinician Unavailable PROVIDER, ORDERING Attending Clinician Unavailable ASHLEE AUGUSTE Attending Clinician Unavailable SANDIE GARCIA Attending Clinician Unavailable KAYLAH LOAIZA Attending Clinician Unavailable ROYAL CAMPOS Attending Clinician Unavailable ALIYAH Attending Clinician Unavailable PRATIK WOODWARD Attending Clinician Unavailable ANAYA GUILLEN Attending Clinician Unavailable ANALI GRACIA Attending Clinician Unavailable KLAUDIA TURNER Attending Clinician Unavailable DENIS KENNEDY Attending Clinician Unavailable DINH VARGHESE Attending Clinician Unavailable OCTAVIA BERNSTEIN Attending Clinician Unavailable CARMELO Attending Clinician Unavailable OSCAR FARIAS Attending Clinician Unavailable ROYAL CAMPOS Admitting Clinician Unavailable LEMUEL Admitting Clinician Unavailable OCTAVIA BERNSTEIN Admitting Clinician Unavailable Allergies, Adverse Reactions, Alerts Allergy Name Allergy Status Severity Reaction(s) Onset Inactive Treat ing Comments Type Date Date Clinician Bleach Propensity Active (Sodium to adverse 12 Hypochlorite reactions 00:00: ) 00 Chloroxine Propensity Active 2017-03 to adverse 0-09 reactions 00:00: 00 Levofloxacin Propensity Active Other (See Other to adverse Comments) 09-03 shelbi ction: reactions 00:00: white 00 blisters on neck, chest an d other body parts Sulfamethoxa Drug Active High Hives zole-Trimeth Allergy 7- oprim 00:00: 00 Medications Ordered Filled Start Stop Current Ordering Indication Dosage Frequency Signature Comments Components Medication Medication Date Date Medication? Clinician (SIG) Name Name adam simmons 2019- No .5mL 0.5 mL, s(acel),tet 11-01 Intramuscu anus 03:08: 03:11 lar, Once, vaccine-Tda 00 :00 Tue p 11/01/18 at (BOOSTRIX) 0308, For injection 1 0.5 mL dose
Sh anna well before use. Admi nster IM into the deltoid muscle
STAT ibuprofen 2018- No 600mg 600 mg, (ADVIL,MOTR 11-01 Oral, IN) tablet 03:08: 03:12 Once, Tue 600 mg 00 :00 11/01/18 at 0308, For 1 dose
Gi ve with Food or Milk
ST AT oxyCODONE-a 2019- No 1{tbl} 1 tablet, cetaminophe 11-01 Oral, n 03:08: 03:12 Once, Tue (PERCOCET) 00 :00 11/01/18 at 5-325 mg 0308, For tablet 1 1 tablet dose
AD ULT MAX: NOT TO EXCEED 4GM ACETAMINOP HEN IN 24HRS
S TAT HYDROcodone 2019- No 1{tbl} Take 1 Take 1 -acetaminop 11-01 tablet by tabl et by hen (NORCO) 00:00: 23:59 mouth mouth 5-325 mg 00 :00 every four every per tablet (4) hours four (4) as needed hours as for pain. needed for up to for pain. 5 days for up to 5 days busPIRone Yes TAKE 1 TAKE 1 (BUSPAR) 10 -05 TABLET BY TABL ET BY MG tablet 00:00: MOUTH MOUTH 00 TWICE TWICE DAILY DAILY methylPREDN 2018- No 125mg 125 mg, ISolone 09-16 Intravenou sodium 19:40: 20:01 s, Once, succinate 00 :00 Fri (PF) 09/16/18 at (Solu-MEDRO 1940, For L) 1 injection dose
ST 125 mg AT diphenhydrA 2018- No 50mg 50 mg, MINE 09-16 Intravenou (BENADRYL) 19:40: 20:00 s, Once, injection 00 :00 Fri 50 mg 09/16/18 at 1940, For 1 dose
ME OTECT FROM LIGHT
S TAT famotidine No 20mg 20 mg, (PEPCID) 09-16 Intravenou IVPB 20 mg 19:40: 20:30 s, 00 :00 Administer over 15 Minutes, Once, Wed09/16/18 at 1940, For 1 dose
ST AT predniSONE Yes 3 po daily 3 p o (DELTASONE) 09-16 for 4 daily fo r 20 MG 00:00: days, then 4 days, tablet 00 2 po daily then 2 p o for 4 daily for days, then 4 days, 1 po daily then 1 po for 4 days daily for 4 days famotidine No 20mg Take 1 Take 1 (PEPCID) 20 09-16 tablet (20 tab let MG tablet 00:00: 23:59 mg total) (20 m g 00 :00 by mouth total) by Two (2) mouth Two times a (2) times day. for a day. 14 days for 14 days triamterene 2019- No 1{tbl} Take 1 Take 1 -hydrochlor 08-2924 tablet by tabl et by othiazide 00:00: 23:59 mouth mouth (MAXZIDE-25 00 :00 daily. daily. ) 37.5-25 mg per tablet acyclovir No 400mg Take 400 Take 4 00 (ZOVIRAX) 6- 06-10 mg by mg by 400 MG 00:00: 23:59 mouth Two mouth Tw o tablet 00 :00 (2) times (2) times a day. a day. omeprazole 2019- No 40mg Take 40 mg Yony e 40 (PRILOSEC) 6-10 06-10 by mouth mg by 40 MG 00:00: 23:59 daily. mouth capsule 00 :00 daily. metoprolol No 50mg Take 50 mg Yony e 50 tartrate 6- 09-10 by mouth mg by (LOPRESSOR) 00:00: 23:59 daily. mouth 50 MG 00 :00 Tartrate daily. tablet ONCE DAILY Tartrate per ONCE pharmacy DAILY per directions pharmacy direction s IBU 600 mg 2019- No 600mg Take 600 Take 600 tablet 5-15 05-15 mg by mg by 00:00: 23:59 mouth mouth 00 :00 Three (3) Three (3) times a times a day as day as needed. needed. Take with Take with food PRN food PRN left side left side pain - do pain - do not drink not drink alcohol. alcohol. 90 90 tablets. tablets. mirtazapine 2018- No 30mg Take 30 mg Ta ke 30 (REMERON) 5-15 10-15 by mouth mg by 30 MG 00:00: 23:59 nightly. mouth tablet 00 :00 nightly. valACYclovi 2017-03- No Herpes 500mg Take 1 Take 1 r (VALTREX) 03-13 simplex of tablet ta blet 500 MG 00:00: 23:59 female (500 mg (500 mg tablet 00 :00 genitalia total) by total ) by mouth mouth daily. If daily. If you have you have an an outbreak outbreak then take then take 2 tab 2 tab daily for daily for 5 days 5 days then then continue 1 continue tab for 1 tab for suppressio suppressi n. on. valACYclovi 2017-03- No TAKE 1 TAKE 1 r (VALTREX) 03-13 TABLET BY TABL ET BY 500 MG 00:00: 23:59 MOUTH MOUTH tablet 00 :00 DAILY, IF DAILY, IF YOU HAVE YOU HAVE AN AN OUTBREAK OUTBREAK TAKE 2 TAKE 2 TABLETS TABLETS DAILY FOR DAILY FOR 5 DAYS 5 DAYS THEN THEN CONTINUE 1 CONTINUE TABLET FOR 1 TABLET SUPPRESSIO FOR N SUPPRESSI ON valACYclovi 2017-03- No Herpes 500MG Take 1 Take 1 r (VALTREX) 03-12 simplex of tablet ta blet 500 MG 00:00: 00:00 female (500 mg (500 mg tablet 00 :00 genitalia total) by total ) by mouth mouth daily. If daily. If you have you have an an outbreak outbreak then take then take 2 tab 2 tab daily for daily for 5 days 5 days then then continue 1 continue tab for 1 tab for suppressio suppressi n. on. valACYclovi 2017-03- No Herpes 500MG Take 1 Take 1 r (VALTREX) 1-01 11-05 simplex of tablet ta blet 500 MG 00:00: 00:00 female (500 mg (500 mg tablet 00 :00 genitalia total) by total ) by mouth mouth daily. If daily. If you have you have an an outbreak outbreak then take then take 2 tab 2 tab daily for daily for 5 days 5 days then then continue 1 continue tab for 1 tab for suppressio suppressi n. on. lidocaine 2017-03- No Herpetic 1{appli Apply 1 Ap ply 1 (XYLOCAINE) 012-31 lesions cation} applicatio applicati 5 % 00:00: 23:59 n on ointment 00 :00 topically topical ly Two (2) Two (2) times a times a day. To day. To the the vaginal vaginal lesions lesions using a q using a q tip tip lidocaine 2017-03- No USE A USE A (XYLOCAINE) 0-12-31 Q-TIP AND Q-TI P AND 5 % 00:00: 23:59 APPLY 1 APPLY 1 ointment 00 :00 APPLICATIO APPLIC ATI N ON TOPICALLY TOPICALLY TO VAGINAL TO LESIONS VAGINAL TWICE LESIONS DAILY TWICE DIRECTED DAILY DIRECTED valACYclovi 2017-03- No 1000mg TAKE 1 TAKE 1 r (VALTREX) 012-31 TABLET BY TABL ET BY 1000 MG 00:00: 23:59 MOUTH MOUTH tablet 00 :00 TWICE TWICE DAILY FOR DAILY FOR 10 DAYS 10 DAYS valACYclovi 2017-03 2018- No Herpetic 1000MG Take 1 Ta ke 1 r (VALTREX) 005 lesions tablet table t 1000 MG 00:00: 23:59 (1,000 mg (1,000 mg tablet 00 :00 total) by total) by mouth Two mouth Two (2) times (2) times a day. for a day. 10 days for 10 days cyclobenzap 2017-03 Yes muscle 10mg Take 1 Take 1 rine 0-09 spasm tablet (10 tablet (FLEXERIL) 00:00: mg total) (10 mg 10 MG 00 by mouth total) by tablet nightly as mouth needed for nightly muscle as needed spasms. for muscle spasms. metoprolol 2017-03- No 50mg Take 2 Take 2 tartrate 0-09 07-12 tablets tablets (LOPRESSOR) 00:00: 00:00 (50 mg (50 mg 25 MG 00 :00 total) by total) by tablet mouth mouth every every morning. morning. atorvastati 2017-03- No 20mg Take 1 Take 1 n (LIPITOR) 01-13 tablet (20 tab let 20 MG 00:00: 23:59 mg total) (20 mg tablet 00 :00 by mouth total) by every mouth morning. every morning. omeprazole 2017-03- No 40MG Take 2 Take 2 (PRILOSEC) 01-13 capsules capsul es 20 MG 00:00: 23:59 (40 mg (40 mg capsule 00 :00 total) by total) b y mouth mouth daily. daily. lidocaine 2017-03- No 1{patch Place [address] 1 (LIDODERM) 12-31 } patch on patch on 5 % patch 00:00: 00:00 the skin the sk in 00 :00 daily. daily. Apply to Apply to affected affected area for area for 12 hours 12 hours only each only each day (then day (then remove remove patch) patch) clindamycin 2017-03- No 100MG Insert 1 Inse rt 1 (CLEOCIN) 12-21 suppositor suppo sito 100 mg 00:00: 23:59 y (100 mg ry (100 vaginal 00 :00 total) mg total) suppository into the into the vagina vagina nightly. nightly. for 7 days for 7 days promethazin 2017- No 25MG Take 1 Take 1 e 10-06 tablet (25 tablet (PHENERGAN) 00:00: 23:59 mg total) (25 mg 25 MG 00 :00 by mouth total) by tablet every six mouth (6) hours every six as needed (6) hours for as needed nausea. for for up to nausea. 7 days for up to 7 days promethazin 2017- No 25MG Take 1 Take 1 e 10-06- tablet (25 tablet (PHENERGAN) 00:00: 23:59 mg total) (25 mg 25 MG 00 :00 by mouth total) by tablet every six mouth (6) hours every six as needed (6) hours for as needed nausea. for for up to nausea. 7 days for up to 7 days diazePAM Yes 5mg Take 1 Take 1 (VALIUM) 5 09-30 tablet (5 table t (5 MG tablet 00:00: mg total) mg to valentin) 00 by mouth by mouth every every eight (8) eight (8) hours as hours as needed for needed anxiety. for anxiety. oxyCODONE-a Yes 1{tbl} Take 1 Take 1 cetaminophe 09-30 tablet by tabl et by n 00:00: mouth mouth (PERCOCET) 00 every six every six 5-325 mg (6) hours (6) jeramy rs per tablet as needed as ne eded for pain. for pain. busPIRone 2018- No 10mg Take 1 Take 1 (BUSPAR) 10 09-30 08- tablet (10 tab let MG tablet 00:00: 00:00 mg total) (10 m g 00 :00 by mouth total) by Two (2) mouth Two times a (2) times day. a day. busPIRone 2017- No 10MG Take 1 Take 1 (BUSPAR) 10 09-30 tablet (10 tab let MG tablet 00:00: 00:00 mg total) (10 m g 00 :00 by mouth total) by Two (2) mouth Two times a (2) times day. a day. beclomethas No 2{puff} Inhale 2 In garcia 2 one (QVAR) 1-29 puffs puffs 40 09:06: daily with daily mcg/actuati 05 breakfast. wit h on inhaler breakfast . ondansetron 2017- No 4MG Take 1 Take 1 (ZOFRAN-ODT 04-04 tablet (4 tabl et (4 ) 4 MG 00:00: 23:59 mg total) mg total ) disintegrat 00 :00 by mouth by mo uth ing tablet every every eight (8) eight (8) hours as hours as needed for needed nausea. for for up to nausea. 7 days for up to 7 days oxyCODONE 2017- No 10MG Take 1 Take 1 (ROXICODONE 04-04 tablet (10 tab let ) 10 mg 00:00: 23:59 mg total) (10 mg immediate 00 :00 by mouth total) by release every mouth tablet eight (8) every hours as eight (8) needed for hours as pain. for needed up to 5 for pain. days for up to 5 days oxyCODONE 2017- No Post-op Take 1-2 Take 1-2 (ROXICODONE 03-17 pain tabs every tab s ) 5 MG 00:00: 00:00 6 hours as every 6 immediate 00 :00 needed for hours as release pain for needed tablet up to five for pain days for up to five days acetaminoph No 650MG Take 2 Take 2 en 03-11 tablets tablets (TYLENOL) 00:00: 00:00 (650 mg (650 mg 325 MG 00 :00 total) by total) by tablet mouth mouth Every four Every (4) hours. four (4) hours. docusate No 100MG Take 1 Take 1 sodium 03-11 capsule capsule (COLACE) 00:00: 00:00 (100 mg (100 mg 100 MG 00 :00 total) by total) by capsule mouth Two mouth Tw o (2) times (2) times a day. a day. oxyCODONE No 5MG Take 1 Take 1 (ROXICODONE 03-11 tablet (5 tabl et (5 ) 5 MG 00:00: 23:59 mg total) mg total ) immediate 00 :00 by mouth by mout h release every four every tablet (4) hours four (4) as needed. hours as for up to needed. 7 days for up to 7 days ibuprofen 2018- No 600MG Take 1 Take 1 (ADVIL,MOTR 03-10 tablet tablet IN) 600 MG 00:00: 23:59 (600 mg (600 m g tablet 00 :00 total) by total) by mouth mouth every six every six (6) hours (6) hours as needed as needed for pain. for pain. oxyCODONE No 5MG Take 1 Take 1 (ROXICODONE 03-10 tablet (5 tabl et (5 ) 5 MG 00:00: 23:59 mg total) mg total ) immediate 00 :00 by mouth by mout h release every six every si x tablet (6) hours (6) hours as needed as needed for pain. for pain. for up to for up to 5 days 5 days acyclovir 2016-03- No Recurrent Apply thin Apply (ZOVIRAX) 5 2-18 -27 cold sores layer to thin % ointment 00:00: 00:00 affected layer to 00 :00 area affected area oxyCODONE-a 2016-03 No 1{tbl} Take 1 Take 1 cetaminophe 1-05 tablet by tabl et by n 00:00: mouth mouth (PERCOCET) 00 every four ever y 5-325 mg (4) hours four (4 ) per tablet as needed hours as for pain. needed for pain. labetalol 2016-03 No 100MG Take 100 Take 1 00 (NORMODYNE) 0-30 mg by mg by 100 MG 12:55: mouth mouth tablet 23 daily at daily at 0600. 0600. multivitami 2016-03 2018- No 1{tbl} Take 1 Take 1 n, 0-30 -27 tablet by tablet by , 12:55: 00:00 mouth mouth folic 23 :00 daily. daily. acid-iron, 27-1 mg Tab gabapentin 2016-03 Yes 1200mg Take 1,200 Ta ke (NEURONTIN) 0-02 mg by 1,200 mg 400 MG 06:03: mouth by mouth capsule 05 daily. daily. oxyCODONE 2017- No Dysmenorrhe 5MG Take 1 Ta ke 1 (ROXICODONE 11-1308 a tablet (5 tabl et (5 ) 5 MG 00:00: 23:59 mg total) mg total ) immediate 00 :00 by mouth by mout h release every every tablet eight (8) eight (8) hours as hours as needed for needed pain. for pain. acyclovir 2017- No Recurrent Apply thin Apply (ZOVIRAX) 5 11-13 09-08 cold sores layer to thin % ointment 00:00: 23:59 affected layer to 00 :00 area affected area traMADol No 50MG Take 1 Take 1 (ULTRAM) 50 8-08 tablet (50 tab let mg tablet 00:00: mg total) (50 m g 00 by mouth total) by every mouth eight (8) every hours as eight (8) needed for hours as pain,sever needed e (7-10). for pain,fahad re (7-10). guaiFENesin 2017-0 2017- No 1200MG Take 2 Take 2 (MUCINEX) 10-13 08-18 tablets tablets 600 mg 12 00:00: 23:59 (1,200 mg (1,20 0 mg hr tablet 00 :00 total) by total) by mouth Two mouth Two (2) times (2) times a day. for a day. 10 days for 10 days oxyCODONE 2018- No Dysmenorrhe 5MG Take 1 Ta ke 1 (ROXICODONE 10-06 a tablet (5 tabl et (5 ) 5 MG 00:00: 23:59 mg total) mg total ) immediate 00 :00 by mouth by mout h release every every tablet eight (8) eight (8) hours as hours as needed for needed pain. for pain. predniSONE No 3 po daily 3 p o (DELTASONE) 7-13 for 2 daily fo r 20 MG 00:00: days, then 2 days, tablet 00 2 po daily then 2 p o for 2 daily for days, then 2 days, 1 po daily then 1 po for 2 days daily for 2 days lactulose Yes 20g Take 30 mL Take 30 (CHRONULAC) 09-07 (20 g mL (20 g 20 gram/30 00:00: total) by tota l) by mL Soln 00 mouth two mouth tw o (2) times (2) times a day as a day as needed needed (constipat (constipa ion). tion). busPIRone 2017- No 10MG Take 1 Take 1 (BUSPAR) 10 09-07 07-03 tablet (10 tab let MG tablet 00:00: 23:59 mg total) (10 m g 00 :00 by mouth total) by Two (2) mouth Two times a (2) times day. a day. predniSONE No Bronchitis 6 tabs on 6 tabs on (DELTASONE) 6-28 day 1, 5 day 1 , 5 10 MG 00:00: tabs on tabs on tablet 00 day 2, 4 day 2, 4 tabs on tabs on day 3, 3 day 3, 3 tabs on tabs on day 4, 2 day 4, 2 tabs on tabs on day 5, 1 day 5, 1 tab on day tab on 6 day 6 dextrometho 2017-0 2018- No Bronchitis 5mL Take 5 m L Take 5 mL rphan-allenaif 09-02 by mouth by mo [facility] enesin 00:00: 00:00 every four every 10-100 mg/5 00 :00 (4) hours four (4) mL Liqd as needed hours as syrup for cough. needed for cough. furosemide No 20MG Take 20 mg Yony e 20 (LASIX) 20 6-14 by mouth mg by MG tablet 13:52: daily. mouth 25 daily. omeprazole No 40MG Take 40 mg Yony e 40 (PRILOSEC) 6-14 by mouth mg by 20 MG 13:52: daily. mouth capsule 25 daily. furosemide Yes 20mg Take 20 mg Yony e 20 (LASIX) 20 6-14 by mouth mg by MG tablet 13:52: daily. mouth 25 daily. omeprazole 2017- No 40MG Take 40 mg Yony e 40 (PRILOSEC) -09 by mouth mg by 20 MG 13:52: 00:00 daily. mouth capsule 25 :00 daily. ciprofloxac 2016- No 500MG Take 1 Take 1 in HCl 08-1924 tablet tablet (CIPRO) 500 00:00: 23:59 (500 mg (500 mg MG tablet 00 :00 total) by total) by mouth Two mouth Two (2) times (2) times a day. for a day. 10 days for 10 days ciprofloxac 2016- No 500MG Take 1 Take 1 in HCl 08-1924 tablet tablet (CIPRO) 500 00:00: 23:59 (500 mg (500 mg MG tablet 00 :00 total) by total) by mouth Two mouth Two (2) times (2) times a day. for a day. 10 days for 10 days ondansetron 2016- No 4MG Q8H Take 1 Take 1 (ZOFRAN-ODT 08-19 tablet (4 tabl et (4 ) 4 MG 00:00: 23:59 mg total) mg total ) disintegrat 00 :00 by mouth by mo [facility] ing tablet every every eight (8) eight (8) hours as hours as needed for needed nausea. for for up to nausea. 7 days for up to 7 days ondansetron 2016- No 4MG Q8H Take 1 Take 1 (ZOFRAN-ODT 08-19 tablet (4 tabl et (4 ) 4 MG 00:00: 23:59 mg total) mg total ) disintegrat 00 :00 by mouth by mo uth ing tablet every every eight (8) eight (8) hours as hours as needed for needed nausea. for for up to nausea. 7 days for up to 7 days traMADol 2017- No 50MG Q6H Take 1 Take 1 (ULTRAM) 50 08-18 tablet (50 tab let mg tablet 00:00: 23:59 mg total) (50 m g 00 :00 by mouth total) by every six mouth (6) hours every six as needed (6) hours for pain. as needed for pain. traMADol 2016- No Dysmenorrhe 50MG Q6H Take 1 Yony e 1 (ULTRAM) 50 08-1808 a tablet (50 tab let mg tablet 00:00: 00:00 mg total) (50 m g 00 :00 by mouth total) by every six mouth (6) hours every six as needed (6) hours for pain. as needed for pain. IPRATROPIUM 2016- 2017- No 1{puff} Inhale 1 In garcia 1 /ALBUTEROL 08-13 06-08 puff every puff SULFATE 09:43: 00:00 morning. every (COMBIVENT 17 :00 morning. INHL) IPRATROPIUM 2017- No 2{puff} Inhale 2 In garcia 2 /ALBUTEROL 08-13 0608 puffs. puffs. SULFATE 09:43: 00:00 (COMBIVENT 17 :00 INHL) fluconazole 2016- 2017- No 100MG Take 1 Take 1 (DIFLUCAN) 08-13 tablet tablet 100 MG 00:00: 23:59 (100 mg (100 mg tablet 00 :00 total) by total) by mouth mouth daily. for daily. 5 days for 5 days fluconazole 2016-2016- No 100MG Take 1 Take 1 (DIFLUCAN) 08-13 tablet tablet 100 MG 00:00: 23:59 (100 mg (100 mg tablet 00 :00 total) by total) by mouth mouth daily. for daily. 5 days for 5 days ipratropium 2016-2017- No 3mL Q6H Inhale 3 Inha le 3 -albuterol 6-07 06-07 mL by mL by (DUO-NEB) 00:00: 23:59 nebulizati nebu lizat 0.5-2.5 00 :00 on every ion every mg/3 mL six (6) six (6) nebulizer hours as hours a s needed. needed. ipratropium 2017- No 3mL Q6H Inhale 3 Inha le 3 -albuterol 6-07 06-07 mL by mL by (DUO-NEB) 00:00: 23:59 nebulizati nebu lizat 0.5-2.5 00 :00 on every ion every mg/3 mL six (6) six (6) nebulizer hours as hours a s needed. needed. ipratropium 2017- No 3mL Q6H Inhale 3 Inha le 3 -albuterol 6-07 06-07 mL by mL by (DUO-NEB) 00:00: 23:59 nebulizati nebu lizat 0.5-2.5 00 :00 on every ion every mg/3 mL six (6) six (6) nebulizer hours as hours a s needed. needed. levoFLOXaci 2016- No 500MG Take 1 Take 1 n 08-12 tablet tablet (LEVAQUIN) 00:00: 23:59 (500 mg (500 m g 500 MG 00 :00 total) by total) by tablet mouth mouth daily. for daily. 7 days for 7 days levoFLOXaci 2016- No 500MG Take 1 Take 1 n 08-12 tablet tablet (LEVAQUIN) 00:00: 00:00 (500 mg (500 m g 500 MG 00 :00 total) by total) by tablet mouth mouth daily. for daily. 7 days for 7 days levoFLOXaci No 500MG Levofloxac n 08-11 in 500 Mg (LEVAQUIN) 10:00: Tablet tablet 500 00 mg methylPREDN No 20MG Q12H Methylpred ISolone 08-11 nisolone sodium 02:00: Sod Succ succinate 00 (Pf) 40 (PF) Mg/Ml (Solu-MEDRO Solution L) 40 mg/mL For injection Injection 20 mg pantoprazol No 40MG Pantoprazo e 08-08 le 40 Mg (PROTONIX) 13:00: Tablet,Del EC tablet 00 ayed 40 mg Release acetylcyste No 4mL Acetylcyst ine 08-07 eine 200 (MUCOMYST) 12:00: Mg/Ml (20 200 mg/mL 00 %) (20 %) Solution solution 4 mL dextrometho No 5mL Q4H Dextrometh rphan-guaif 08-07 orphan-Gua enesin 11:21: ifenesin (ROBITUSSIN 10 10 Mg-100 -DM) 10-100 Mg/5 Ml mg/5 mL Syrup liquid 5 mL LORazepam No 1MG Q6H Lorazepam (ATIVAN) 08-06 2 Mg/Ml injection 1 23:22: Injection mg 44 Solution Marroquin's No 10mL Marroquin's magic 08-05 magic mouthwash 17:00: mouthwash oral 00 oral suspension suspension 10 mL 10 mL ipratropium No 3mL Ipratropiu -albuterol 08-05 m-Albutero (DUO-NEB) 16:00: l 0.5 Mg-3 0.5-2.5 00 Mg(2.5 Mg mg/3 mL Base)/3 Ml nebulizer Nebulizati solution 3 on Soln mL atorvastati No 20MG Atorvastat n (LIPITOR) 08-05 in 10 Mg tablet 20 09:00: Tablet mg 00 cetirizine No 10MG Cetirizine (ZyrTEC) 08-05 10 Mg tablet 10 09:00: Tablet mg 00 fluticasone No 2{spray Fluticason (FLONASE) 08-05 } e 50 50 09:00: McG/Actuat mcg/actuati 00 ion Nasal on nasal [place],Susp spray 2 ension spray metoprolol No 25MG Metoprolol tartrate 08-05 Tartrate (LOPRESSOR) 09:00: 25 Mg tablet 25 00 Tablet mg montelukast No 10MG Montelukas (SINGULAIR) 08-05 t 10 Mg tablet 10 09:00: Tablet mg 00 omega-3 No 1{capsu [place]-3 fatty 08-05 le} Fatty acids-fish 09:00: Acids-Fish oil 00 Oil 340 340-1,000 Mg-1,000 mg capsule Mg Capsule 1 capsule therapeutic No 1{tbl} Therapeuti multivitami 5-31 c n 09:00: Multivitam (THERAGRAN) 00 in Tablet tablet 1 tablet cyclobenzap No 10MG Cyclobenza rine 5-30 tamra 10 (FLEXERIL) 23:00: Mg Tablet tablet 10 00 mg traMADol No 50MG Q6H Tramadol (ULTRAM) 5-30 50 Mg tablet 50 22:15: Tablet mg 41 nicotine No 1{patch Nicotine (NICODERM 5-30 } 14 Mg/24 CQ) 14 22:00: Hr Daily mg/24 hr 00 Transderma patch 1 l Patch patch traZODone No 100MG Trazodone (DESYREL) 5-30 50 Mg tablet 100 22:00: Tablet mg 00 cyclobenzap No 10MG Take 10 mg Ta ke 10 rine 5-30 by mouth mg by (FLEXERIL) 21:45: nightly. mouth 10 MG 56 nightly. tablet cyclobenzap No 10MG Take 10 mg Ta ke 10 rine 5-30 by mouth mg by (FLEXERIL) 21:45: nightly. mouth 10 MG 56 nightly. tablet cyclobenzap 2018- No Muscle 10MG Take 10 mg T anna 10 rine 5-30 10-09 Spasm by mouth mg by (FLEXERIL) 21:45: 00:00 nightly. mouth 10 MG 56 :00 nightly. tablet dextrometho No 5mL Q6H Dextrometh rphan-guaif 5-30 orphan-Gua enesin 21:40: ifenesin (ROBITUSSIN 28 10 Mg-100 -DM) 10-100 Mg/5 Ml mg/5 mL Syrup liquid 5 mL promethazin No 12.5MG Q6H Promethazi e 5-30 ne 6.25 (PHENERGAN) 21:38: Mg/5 Ml 6.25 mg/5 35 Syrup mL syrup 12.5 mg acetaminoph No 650MG Q4H Acetaminop en 30 hen 325 Mg (TYLENOL) 21:26: Tablet tablet 650 01 mg albuterol No 1{puff} Q4H Albuterol (PROVENTIL 5-30 Sulfate HFA;VENTOLI 21:26: Hfa 90 N HFA) 90 01 McG/Actuat mcg/actuati ion on inhaler Aerosol 1 puff Inhaler multivitami No 1{tbl} Take 1 Take 1 n 5-30 tablet by tablet by (TAB-A-JOSEPH 17:05: mouth. mouth. /THERAGRAN) 05 per tablet albuterol No Inhale. Inhale. (PROVENTIL 5-30 HFA;VENTOLI 17:05: N HFA) 90 05 mcg/actuati on inhaler multivitami Yes 1{tbl} Take 1 Take 1 n 5-30 tablet by tablet by (TAB-A-JOSEPH 17:05: mouth mouth /THERAGRAN) 05 daily. daily. per tablet multivitami No 1{tbl} Take 1 Take 1 n 5-30 tablet by tablet by (TAB-A-JOSEPH 17:05: mouth. mouth. /THERAGRAN) 05 per tablet albuterol No Inhale. Inhale. (PROVENTIL 5-30 06-14 HFA;VENTOLI 17:05: 00:00 N HFA) 90 05 :00 mcg/actuati on inhaler promethazin No 5mL Q.25D Take 5 mL Yony e 5 mL e-dextromet 08-03 06-08 by mouth 4 by mouth horphan 00:00: 00:00 (four) 4 (four) (PROMETHAZI 00 :00 times a times a NE-DM) day as day as 6.25-15 needed for needed mg/5 mL cough. for for syrup up to 7 cough. days for up to 7 days ondansetron 2016- No 4MG Q8H Take 1 Take 1 (ZOFRAN-ODT 08-03 05-30 tablet (4 tabl et (4 ) 4 MG 00:00: 00:00 mg total) mg total ) disintegrat 00 :00 by mouth by mo uth ing tablet every every eight (8) eight (8) hours as hours as needed for needed nausea. for for up to nausea. 7 days for up to 7 days promethazin 2016- No 5mL Q.25D Take 5 mL Yony e 5 mL e-dextromet 08-03 by mouth 4 by mouth horphan 00:00: 00:00 (four) 4 (four) (PROMETHAZI 00 :00 times a times a NE-DM) day as day as 6.25-15 needed for needed mg/5 mL cough. for for syrup up to 7 cough. days for up to 7 days ondansetron 2016- No 4MG Q8H Take 1 Take 1 (ZOFRAN-ODT 08-03 tablet (4 tabl et (4 ) 4 MG 00:00: 00:00 mg total) mg total ) disintegrat 00 :00 by mouth by mo uth ing tablet every every eight (8) eight (8) hours as hours as needed for needed nausea. for for up to nausea. 7 days for up to 7 days atorvastati No 20MG Take 20 mg Ta ke 20 n (LIPITOR) 5-10 by mouth mg by 20 MG 15:16: every mouth tablet 02 morning. every morning. cetirizine No 10MG Take 10 mg Yony e 10 (ZYRTEC) 10 5-10 by mouth mg by MG tablet 15:16: every mouth 02 morning. every morning. fish No 1200MG Take 1,200 Take oil-dha-epa 5-10 mg by 1,200 mg 1,200-144-2 15:16: mouth by mout h 16 mg cap 02 every every morning. morning. linaclotide 2017-0 No 145ug Take 145 Take 145 (LINZESS) 5-10 mcg by mcg by 145 mcg 15:16: mouth mouth capsule 02 nightly. nightly. metoprolol 2017-0 No 25MG Take 25 mg Yony e 25 tartrate 5-10 by mouth mg by (LOPRESSOR) 15:16: every mouth 25 MG 02 morning. every tablet morning. montelukast 2017-0 No 10MG Take 10 mg Ta ke 10 (SINGULAIR) 5-10 by mouth mg by 10 mg 15:16: every mouth tablet 02 morning. every morning. potassium 2017-0 No 99MG Take 99 mg Take 99 99 mg Tab 5-10 by mouth mg by 15:16: nightly. mouth 02 nightly. linaclotide 2017-0 Yes 145ug Take 145 Take 145 (LINZESS) 5-10 mcg by mcg by 145 mcg 15:16: mouth mouth capsule 02 every every morning morning before before breakfast. breakfast . cetirizine 2017 Yes 10mg Take 10 mg Yony e 10 (ZYRTEC) 10 5-10 by mouth mg by MG tablet 15:16: every mouth 02 morning. every morning. potassium 2016- No 99MG Take 99 mg Take 99 99 mg Tab 5-10 by mouth mg by 15:16: nightly. mouth 02 nightly. montelukast Yes 10mg Take 10 mg Ta ke 10 (SINGULAIR) 5-10 by mouth mg by 10 mg 15:16: every mouth tablet 02 morning. every morning. fish No 1200MG Take 1,200 Take oil-dha-epa 5-10 mg by 1,200 mg 1,200-144-2 15:16: mouth by mout h 16 mg cap 02 every every morning. morning. atorvastati No 20MG Take 20 mg Ta ke 20 n (LIPITOR) 5-10 by mouth mg by 20 MG 15:16: every mouth tablet 02 morning. every morning. cetirizine No 10MG Take 10 mg Yony e 10 (ZYRTEC) 10 5-10 by mouth mg by MG tablet 15:16: every mouth 02 morning. every morning. fish No 1200MG Take 1,200 Take oil-dha-epa 5-10 mg by 1,200 mg 1,200-144-2 15:16: mouth by mout h 16 mg cap 02 every every morning. morning. linaclotide 2017-0 No 145ug Take 145 Take 145 (LINZESS) 5-10 mcg by mcg by 145 mcg 15:16: mouth mouth capsule 02 nightly. nightly. metoprolol 2017-0 No 25MG Take 25 mg Yony e 25 tartrate 5-10 by mouth mg by (LOPRESSOR) 15:16: every mouth 25 MG 02 morning. every tablet morning. montelukast No 10MG Take 10 mg Ta ke 10 (SINGULAIR) 5-10 by mouth mg by 10 mg 15:16: every mouth tablet 02 morning. every morning. potassium 2016- No 99MG Take 99 mg Take 99 99 mg Tab 5-10 by mouth mg by 15:16: nightly. mouth 02 nightly. atorvastati 2016-2017- No 20MG Take 20 mg Ta ke 20 n (LIPITOR) 5-10 10-09 by mouth mg by 20 MG 15:16: 00:00 every mouth tablet 02 :00 morning. every morning. metoprolol 2017- No 50MG Take 50 mg Yony e 50 tartrate 5-10 10-09 by mouth mg by (LOPRESSOR) 15:16: 00:00 every mouth 25 MG 02 :00 morning. every tablet morning. fluticasone 2017- No 2{spray 2 sprays 2 sprays (FLONASE) 07-01 } into each into e ach 50 00:00: 23:59 nostril. nostril. mcg/actuati 00 :00 on nasal spray fluticasone 2017- No 2{spray 2 sprays 2 sprays (FLONASE) 07-01 } into each into e ach 50 00:00: 23:59 nostril. nostril. mcg/actuati 00 :00 on nasal spray fluticasone 2017- No 2{spray 2 sprays 2 sprays (FLONASE) 07-01 } into each into e ach 50 00:00: 23:59 nostril. nostril. mcg/actuati 00 :00 on nasal spray traZODone No 100MG Take 100 Take 1 00 (DESYREL) 4-19 mg by mg by 100 MG 15:21: mouth mouth tablet 43 nightly. nightly. traZODone 2016-0 No 100MG Take 100 Take 1 00 (DESYREL) 4-19 mg by mg by 100 MG 15:21: mouth mouth tablet 43 nightly. nightly. traZODone 2016-0 No 100MG Take 100 Take 1 00 (DESYREL) 4-19 mg by mg by 100 MG 15:21: mouth mouth tablet 43 nightly. nightly. albuterol No 2{puff} 2 puffs 2 puf fs (PROVENTIL 1-08 Four (4) Four ( 4) HFA;VENTOLI 00:00: times a times a N HFA) 90 day. day. mcg/actuati on inhaler FUROSEMIDE, No 20MG Take 20 mg Ta ke 20 BULK, MISC -08 by mouth mg by 00:00: every mouth 00 morning. every morning. OMEPRAZOLE No 20MG Take 20 mg Yony e 20 ORAL 08 by mouth mg by 00:00: Two (2) mouth Two 00 times a (2) times day. a day. albuterol No 2{puff} 2 puffs 2 puf fs (PROVENTIL 08 Four (4) Four ( 4) HFA;VENTOLI 00:00: times a times a N HFA) day. day. mcg/actuati on inhaler albuterol No 2{puff} 2 puffs 2 puf fs (PROVENTIL 08 Four (4) Four ( 4) HFA;VENTOLI 00:00: times a times a N HFA) day. day. mcg/actuati on inhaler albuterol Yes 2{puff} 2 puffs 2 puf fs (PROVENTIL 08 Four (4) Four ( 4) HFA;VENTOLI 00:00: times a times a N HFA) day. day. mcg/actuati on inhaler FUROSEMIDE, 2016- No 20MG Take 20 mg Ta ke 20 BULK, MISC 03-15 by mouth mg by 00:00: 00:00 every mouth 00 :00 morning. every morning. OMEPRAZOLE 2016- No 20MG Take 20 mg Yony e 20 ORAL 03-15 by mouth mg by 00:00: 00:00 Two (2) mouth Two 00 :00 times a (2) times day. a day. beclomethas Yes 2{puff} Inhale 2 Inh jennie 2 one (QVAR) puffs puffs 40 daily with daily mcg/actuati breakfast. wit h on inhaler breakfast . Problems Condition Condition Condition Status Onset Resolution Last Treatin g Comments Name Details Category Date Date Treatment Clinician Date Post-operat Post-operat Condition Active 2017-03-10 david state david state 03-10 12:47:16 00:00: 00 MRSA MRSA Condition Active 2016-08-12 pneumonia pneumonia 08-12 11:39:16 00:00: 00 Sepsis Sepsis Condition Active 2016-08-0508-05 19:10:02 00:00: 00 COPD COPD Condition Active 2016-08-05 exacerbatio exacerbatio 08-05 19:08:13 n n 00:00: 00 Community Community Condition Active 2016-08-12 acquired acquired 08-05 11:39:04 pneumonia pneumonia 00:00: 00 Anxiety Anxiety Condition Active 2016-06-24 Ove rview: state state 07-11 15:22:00 STORY: 00:00: she take s 00 some klonopin prn Asthma Asthma Condition Active 2017-03-10 Ove rview: (NAV-HCC) (NAV-HCC) 07-11 12:46:33 STO RY: 00:00: will try 00 symbicor t samples Pain in Pain in Condition Active 2016-06-24 Ove rview: thoracic thoracic 07-11 15:22:00 STORY : spine spine 00:00: she 00 continue s to have pain after a fall. Sh e is needing a refill o n her percocet , Disorder of Disorder of Condition Active 2016-06-24 Overview: ear ear 07-11 15:22:00 STORY: 00:00: she has 00 been to ENT, Esophageal Esophageal Condition Active 2016-06-24 reflux reflux 07-11 15:22:00 00:00: 00 Essential Essential Condition Active 2017-03-10 Overview: hypertensio hypertensio 07-11 12:47:16 STORY: n (NAV-[facility]) n (NAV-FORM[facility]) 00:00: cont. to 00 follow a t home. Personal Personal Condition Inactiv 2016-06-24 O verview: history of history of e 07-11 15:22:00 S TORY: digestive digestive 00:00: due to disease disease 00 elevated triglyce r ides. Hyperlipide Hyperlipide Condition Active 2016-06-24 jomar jomar 07-11 15:22:00 00:00: 00 Low back Low back Condition Active 2016-06-24 pain pain 07-11 15:22:00 00:00: 00 Screening Screening Condition Inactiv 2016-06-24 for iron for iron e 07-11 15:22:00 deficiency deficiency 00:00: anemia anemia 00 Tobacco use Tobacco use Condition Active 2017-03-10 Overview: disorder disorder 07-11 12:46:41 STORY : 00:00: down to 00 2-3 cigs/day , did not start chantix. Visual Visual Condition Active 2016-06-24 Ove rview: disturbance disturbance 07-11 15:22:00 STORY: 00:00: she woul d 00 like to see ophthal. , will eldon n for a referral . Encounter Encounter Condition Active 2016-06-24 Overview: for routine for routine 07-11 15:22:00 STORY: gynecologic gynecologic 00:00: she wants al al 00 to f/u w / examination examination peer support specialist, has not been in >10 yrs. Personal Personal [id number] Active 2016-06-24 Ov erview: history of history of 07-11 15:22:00 S TORY: digestive digestive 00:00: due to disease disease 00 elevated triglyce r ides. Procedures Procedure Date / Time Performed Performing Clinician Devic e XR CHEST PA AND LATERAL 2018-09-17 00:43:17 Kenia Carrillo na HEPATITIS B SURFACE ANTIGEN 2017-12-31 11:49:00 Veronika, Suneeth a RPR 2017-12-31 11:49:00 Veronika, Kelly HEPATITIS C ANTIBODY 2017-12-31 11:49:00 Veronika, Kelly HIV ANTIGEN/ANTIBODY COMBO 2017-12-31 11:49:00 Veronika, Kelly HSV ANTIBODIES, IGG 2017-12-31 11:49:00 Veronika, Kelly YEAST CULTURE 2017-12-31 09:43:00 Veronika, Kelly WET PREP, GENITAL 2017-12-31 09:43:00 Veronika, Kelly HSV PCR 2017-12-31 09:43:00 Veronika, Kelly CHLAMYDIA/GONORRHOEAE JULIET 2017-12-31 09:43:00 Veronika, Kelly HSV 1,2 PCR NOT BLOOD 2017-12-31 09:43:00 Kelly Banda WET PREP, GENITAL 2017-12-28 00:23:00 Lorena Witt URINALYSIS WITH CULTURE REFLEX 2017-12-27 23:00:00 Mayito Rivero WET PREP, GENITAL 2017-12-14 02:11:00 Radzom, Kateryna Perkins CHLAMYDIA/GONORRHOEAE JULIET 2017-12-14 02:11:00 Radzom, Kateryna Perkins COMPREHENSIVE METABOLIC PANEL 2017-12-14 01:52:00 Radzom, Kateryna Oconnell ghes LIPASE 2017-12-14 01:52:00 Radzom, Kateryna Perkins CBC W/ AUTO DIFF 2017-12-14 01:52:00 Radzom, Kateryna Perkins ED EKG INTERPRETATION 2017-12-14 01:51:22 Radzom, Kateryna Perkins URINALYSIS WITH CULTURE REFLEX 2017-12-14 00:38:00 Radzom, Kateryna Ruiz ughes XR THORACIC SPINE AP AND 2017-12-09 15:59:40 Bonifacio Kline LATERAL XR CHEST PA AND LATERAL 2017-10-06 20:27:52 Fox Auguste ED EKG INTERPRETATION 2016-08-04 19:22:43 CRITICAL CARE 2016-08-04 19:21:58 Results Test Description Test Time Test Comments Text Results Atomic Results Result Comments #[id number] 2018-09-16 XR Chest 2 vie ws (09/16/2018 8:43 PM 21:02:38 EDT)SpecimenImpressionsPerfo rmed At No acute cardiopulmonary abnorm ality. Signed (Electronic Signature): 09/16 9:02 PMSigned By:VITOR DAVIS [facility] RADNarrativePerformed At PRO CEDURE: XR CHEST 2 VIEWS CLINICAL HISTO RY:Cough COMPARISON:10/06/2017. F INDINGS: Lungs are normally inflated and clear.Heart size normal. No pneumothorax.Osseous str uctures are unremarkable. [facility] RADPro cedure NoteInterface, Rad Results I n - 09/16/2018 9:04 PM EDT PROCEDURE: XR CH EST 2 VIEWS CLINICAL HISTORY: Cough COMP ARISON: 10/06/2017. FINDINGS: Lungs are normally inflated and clear. Heart si ze normal. No pneumothorax. Osseous struct ures are unremarkable. IMPRESSION: No acute cardiopulmonary abnormality. Signed (Electronic Signature): 09/16 9:02 PM Signed By: VITOR Lucia [facility] OrganizationAddressCity/Stat e/ZipcodePhone NumberAMERICAN HOSPITAL ASSOCIATION [id number] [place] [address] HSV Antibody, IgG 2017-12-31 11:49:00 Test Item Value Reference Range Comments HSV 1 IgG (test code = HSV 1 IgG) Positive Negative HSV 2 IgG (test code = HSV 2 IgG) Positive Negative HIV Antigen/Antibody [id number] 11:49:00 Test Item Value Reference Range Comments HIV Antigen/Antibody Combo (test code = HIV Nonreactive Nonr eactive Antigen/Antibody Combo) [id number] 11:49:00 Test Item Value Reference Range Comments RPR (test code = RPR) Nonreactive Nonreactive Hepatitis B Surface [id number] 11:49:00 Test Item Value Reference Range Comments Hepatitis B Surface Ag (test code = Hepatitis B Nonreactive Nonreactive Surface Ag) Hepatitis C [id number] 11:49:00 Test Item Value Reference Range Comments Hepatitis C Ab (test code = Hepatitis C Ab) Nonreactive Nonr eactive Wet Prep, [id number] 09:43:00 Test Item Value Reference Range Comments Bact Vaginosis (test code = Bact Intermediate Negative Vaginosis) Yeast Screen, Wet Prep (test code = No Budding Yeast No Budding Yeast Yeast Screen, Wet Prep) Trichomonas Scrn (test code = No Trichomonas spp. No Trichomonas spp. Trichomonas Scrn) Chlamydia/Gonorrhoeae [id number] 09:43:00 Test Item Value Reference Range Comments Chlamydia trachomatis, JULIET (test code = Chlamydia Negative Negative trachomatis, JULIET) Gonorrhoeae JULIET (test code = Gonorrhoeae JULIET) Negative Ne gative CT/GC Specimen Type (test code = CT/GC Specimen Swab Type) CT/GC Specimen Source (test code = CT/GC Specimen Vagina Source) HSV 1 AND 2 BY PCR, NOT [id number] 09:43:00 Test Item Value Reference Range Comments HSV 1 and 2 PCR (test code = HSV 1 and 2 PCR) Positive HSV 2 Ne gative Wet Prep, [id number] 00:23:00 Test Item Value Reference Range Comments WBC, Wet Prep (test code = WBC, Wet Prep) Present Not Pr esent Clue Cells, Wet Prep (test code = Clue Cells, Not Present No t Present Wet Prep) Yeast, Wet Prep (test code = Yeast, Wet Prep) Not Present No t Present Trich, Wet Prep (test code = Trich, Wet Prep) Not Present No t Present Urinalysis with Culture [id number] 23:00:00 Test Item Value Reference Range Comments Color, UA (test code = Color, UA) Light Yellow Clarity, UA (test code = Clarity, UA) Hazy Specific [place], UA (test code = Specific <=1.005 1.016 -1.022 [place], UA) pH, UA (test code = pH, UA) 6.5 5.0-8.0 Leukocyte Esterase, UA (test code = Leukocyte Trace Ne gative Esterase, UA) Nitrite, UA (test code = Nitrite, UA) Negative Negative Protein, UA (test code = Protein, UA) Negative Negative Glucose, UA (test code = Glucose, UA) Negative Negative Ketones, UA (test code = Ketones, UA) Negative Negative Urobilinogen, UA (test code = Urobilinogen, UA) 0.2 mg/dL Bilirubin, UA (test code = Bilirubin, UA) Negative Negati ve Blood, UA (test code = Blood, UA) Negative Negative RBC, UA (test code = RBC, UA) 0 /HPF <4 /HPF WBC, UA (test code = WBC, UA) 2 /HPF 0- 2 /HPF Squam Epithel, UA (test code = Squam Epithel, 3 /HPF 0- 5 /HPF UA) Bacteria, UA (test code = Bacteria, UA) None Seen None See n /HPF Wet Prep, [id number] 02:11:00 Test Item Value Reference Range Comments WBC, Wet Prep (test code = WBC, Wet Prep) Present Not Pr esent Clue Cells, Wet Prep (test code = Clue Cells, Not Present No t Present Wet Prep) Yeast, Wet Prep (test code = Yeast, Wet Prep) Not Present No t Present Trich, Wet Prep (test code = Trich, Wet Prep) Not Present No t Present Chlamydia/Gonorrhoeae [id number] 02:11:00 Test Item Value Reference Range Comments Chlamydia trachomatis, JULIET (test code = Chlamydia Negative Negative trachomatis, JULIET) Gonorrhoeae JULIET (test code = Gonorrhoeae JULIET) Negative Ne gative CT/GC Specimen Type (test code = CT/GC Specimen Swab Type) CT/GC Specimen Source (test code = CT/GC Specimen Vagina Source) Comprehensive Metabolic [id number] 01:52:00 Test Item Value Reference Range Comments Sodium (test code = Sodium) 137 mmol/L 137- 145 mmol/L Potassium (test code = Potassium) 4.4 mmol/L 3.5- 5.1 mmol/ L Chloride (test code = Chloride) 105 mmol/L 98- 107 mmol/L CO2 (test code = CO2) 20.0 mmol/L 22.0- 30.0 mmol/L BUN (test code = BUN) 16 mg/dL 7- 17 mg/dL Creatinine (test code = Creatinine) 0.50 mg/dL 0.60- 1.00 m g/dL BUN/Creatinine Ratio (test code = 32 BUN/Creatinine Ratio) EGFR MDRD Non Af Amer (test code = EGFR MDRD >=60 >=6 0 mL/min/1.73m2 Non Af Amer) EGFR MDRD Af Amer (test code = EGFR MDRD Af >=60 >=60 mL/min/1.73m2 Amer) Anion Gap (test code = Anion Gap) 12 mmol/L 9- 15 mmol/L Glucose (test code = Glucose) 95 mg/dL 74- 106 mg/dL Calcium (test code = Calcium) 9.6 mg/dL 8.4- 10.2 mg/dL Albumin (test code = Albumin) 4.0 g/dL 3.5- 5.0 g/dL Total Protein (test code = Total Protein) 7.2 g/dL 6.3- 8 .2 g/dL Total Bilirubin (test code = Total Bilirubin) 0.3 mg/dL 0. 2- 1.3 mg/dL AST (test code = AST) 25 U/L 14- 36 U/L ALT (test code = ALT) 30 U/L 9- 52 U/L Alkaline Phosphatase (test code = Alkaline 120 U/L 38- 1 26 U/L Phosphatase) Lipase [id number] 01:52:00 Test Item Value Reference Range Comments Lipase (test code = Lipase) 95 U/L 23- 300 U/L CBC w/ [id number] 01:52:00 Test Item Value Reference Range Comments WBC (test code = WBC) 10.6 10*9/L 4.0- 10.0 10*9/L RBC (test code = RBC) 4.17 10*12/L 3.93- 5.22 10*12/L HGB (test code = HGB) 13.8 g/dL 11.2- 15.7 g/dL HCT (test code = HCT) 39.9 % 34.1- 44.9 % MCV (test code = MCV) 95.7 fL 79.4- 94.8 fL MCH (test code = MCH) 33.1 pg 25.7- 32.2 pg MCHC (test code = MCHC) 34.6 g/dL 32.2- 35.5 g/dL RDW (test code = RDW) 12.6 % 11.6- 14.4 % MPV (test code = MPV) 10.4 fL 9.4- 12.4 fL Platelet (test code = Platelet) 286 10*9/L 182- 369 10*9/L Neutrophils % (test code = Neutrophils %) 70.7 % Immature Granulocytes Relative Percent (test 0.5 % code = Immature Granulocytes Relative Percent) Lymphocytes % (test code = Lymphocytes %) 17.1 % Monocytes % (test code = Monocytes %) 8.8 % Eosinophils % (test code = Eosinophils %) 2.1 % Basophils % (test code = Basophils %) 0.8 % Absolute Neutrophils (test code = Absolute 7.5 10*9/L 1.6- 6.1 10*9/L Neutrophils) Immature Granulocytes Absolute Count (test 0.1 10*9/L 0.0- 1.0 10*9/L code = Immature Granulocytes Absolute Count) Absolute Lymphocytes (test code = Absolute 1.8 10*9/L 1.3- 3.6 10*9/L Lymphocytes) Absolute Monocytes (test code = Absolute 0.9 10*9/L 0.2- 0. 4 10*9/L Monocytes) Absolute Eosinophils (test code = Absolute 0.2 10*9/L 0.0- 0.4 10*9/L Eosinophils) Absolute Basophils (test code = Absolute 0.1 10*9/L 0.0- 0. 1 10*9/L Basophils) Urinalysis with Culture [id number] 00:38:00 Test Item Value Reference Range Comments Color, UA (test code = Color, UA) Yellow Clarity, UA (test code = Clarity, UA) Hazy Specific [place], UA (test code = Specific 1.025 1.016 -1.022 [place], UA) pH, UA (test code = pH, UA) 6.0 5.0-8.0 Leukocyte Esterase, UA (test code = Leukocyte Negative Ne gative Esterase, UA) Nitrite, UA (test code = Nitrite, UA) Negative Negative Protein, UA (test code = Protein, UA) Trace Negative Glucose, UA (test code = Glucose, UA) Negative Negative Ketones, UA (test code = Ketones, UA) Negative Negative Urobilinogen, UA (test code = Urobilinogen, UA) 0.2 mg/dL Bilirubin, UA (test code = Bilirubin, UA) Negative Negati ve Blood, UA (test code = Blood, UA) Negative Negative RBC, UA (test code = RBC, UA) 0 /HPF <4 /HPF WBC, UA (test code = WBC, UA) 0 /HPF 0- 2 /HPF Squam Epithel, UA (test code = Squam Epithel, UA) 3 /HPF 0- 5 /HPF Bacteria, UA (test code = Bacteria, UA) None Seen None See n /HPF ED EKG [id number] 00:00:00ED EKG Interpretation (12/14/2017 1:51 AM) Narrative Performed At Kateryna Gaytan DO 12/14/20171:51 AM EKG Interpretation Date/Time: 12/14/2017 1:51 AM Performed by: KATERYNA GAYTAN Authorized by: KATERYNA GAYTAN Rate: ECG rate:79 ECG rate assessment: normal Rhythm: Rhythm: sinus rhythm Ectopy: Ectopy: none QRS: QRS axis:Normal QRS intervals:Normal Conduction: Conduction: normal ST segments: ST segments:Normal T waves: T waves: normal [facility] Performing Organization Address City/State/Zipcode Phone Number [facility] [address] [place] [id number] UD Thoracic Spine 2 [id number] 17:24:18XR Thoracic Spine 2 Views (12/09/2017 3:59 PM) Narrative Performed At PROCEDURE:XR THORACIC SPINE 2 VIEWS CLINICAL HISTORY:Mid back pain. COMPARISON:None available. FINDINGS:The thoracic vertebral bodies and disc spaces are maintained with normal alignment.No compression fracture or listhesis is seen.No proximal rib fractures are identified. The chest is partially includedin the exam and is limited in assessment.No gross abnormalities are seen.The upper abdomen is also included and grossly normal. IMPRESSION: 1.No compression fracture or listhesis. Signed (Electronic Signature): 12/09/2017 5:24 PM Signed By:LEILA DURAN [facility] Procedure Note Interface, Rad Results In - 12/09/2017 5:26 PM EDT PROCEDURE: XR THORACIC SPINE 2 VIEWS CLINICAL HISTORY: Mid back pain. COMPARISON: None available. FINDINGS: The thoracic vertebral bodies and disc spaces are maintained with normal alignment. No compression fracture or listhesis is seen. No proximal rib fractures are identified. The chest is partially included in the exam and is limited in assessment. No gross abnormalities are seen. The upper abdomen is also included and grossly normal. IMPRESSION: 1. No compression fracture or listhesis. Signed (Electronic Signature): 12/09/2017 5:24 PM Signed By: LEILA DURAN Performing Organization Address City/State/Zipcode Phone Number [facility] [address] [facility]. [place], [place] [address]Wmloccqfipof, [id number] 10:53:00 Test Item Value Reference Range Comments Calprotectin, Stool (test code = 113.4 mcg/g <=50.0 (Normal) mcg/g Calprotectin, Stool) C. Difficile [id number] 10:53:00 Test Item Value Reference Range Comments C. Diff PCR (test code = C. Diff PCR) Negative Negative Comprehensive Ova and Parasite [id number] 10:53:00 Test Item Value Reference Range Comments Ova + Parasite Exam (test code = Ova + No Parasites Detected Parasite Exam) Pancreatic Elastase, [id number] 10:53:00 Test Item Value Reference Range Comments Pancreatic Elastase-1 (test code = Test Not Performed Pancreatic Elastase-1) Stool Pathogen [id number] 10:53:00 Test Item Value Reference Range Comments Culture, Stool (test code No Salmonella, Shigella, = Culture, Stool) Aeromonas, Plesiomonas, or Campylobacter sp. isolated XR Chest PA and [id number] 21:19:52XR Chest PA and Lateral (10/06/2017 8:27 PM) Narrative Performed At PROCEDURE: XR CHEST 2 VIEWS CLINICAL HISTORY:Chest Pain/ Dyspnea COMPARISON: Previously available comparisons reviewed FINDINGS: The heart size is within normal limits given technique.The lungs demonstrateno overt consolidation.Osseous structures are intact.There is no pneumothorax.There is no pleural e ffusion. IMPRESSION: 1.No acute radiographic abnormality. Signed (Electronic Signature):10/06/2017 9:19 PM Signed By:ORYAL LOMBARDI [facility] Procedure Note Interface, Rad Results In - 10/06/2017 9:22 PM EDT PROCEDURE: XR CHEST 2 VIEWS CLINICAL HISTORY: Chest Pain/ Dyspnea COMPARISON: Previously available comparisons reviewed FINDINGS: The heart size is within normal limits given technique. The lungs demonstrate no overt consolidation. Osseous structures are intact. There is no pneumothorax. There is no pleural effusion. IMPRESSION: 1. No acute radiographic abnormality. Signed (Electronic Signature): 10/06/2017 9:19 PM Signed By: ROYAL LOMBARDI Performing Organization Address City/State/Zipcode Phone Number [facility] [address] [facility] [place] [address] Comprehensive Metabolic [id number] 20:05:00 Test Item Value Reference Range Comments Sodium (test code = Sodium) 136 mmol/L 137- 145 mmol/L Potassium (test code = Potassium) 3.4 mmol/L 3.5- 5.1 mmol/ L Chloride (test code = Chloride) 105 mmol/L 98- 107 mmol/L CO2 (test code = CO2) 21.0 mmol/L 22.0- 30.0 mmol/L BUN (test code = BUN) 11 mg/dL 7- 17 mg/dL Creatinine (test code = Creatinine) 0.60 mg/dL 0.60- 1.00 m g/dL BUN/Creatinine Ratio (test code = 18 BUN/Creatinine Ratio) EGFR MDRD Non Af Amer (test code = EGFR MDRD >=60 >=6 0 mL/min/1.73m2 Non Af Amer) EGFR MDRD Af Amer (test code = EGFR MDRD Af >=60 >=60 mL/min/1.73m2 Amer) Anion Gap (test code = Anion Gap) 10 mmol/L 9- 15 mmol/L Glucose (test code = Glucose) 115 mg/dL 74- 106 mg/dL Calcium (test code = Calcium) 9.3 mg/dL 8.4- 10.2 mg/dL Albumin (test code = Albumin) 4.2 g/dL 3.5- 5.0 g/dL Total Protein (test code = Total Protein) 6.8 g/dL 6.3- 8 .2 g/dL Total Bilirubin (test code = Total Bilirubin) 0.8 mg/dL 0. 2- 1.3 mg/dL AST (test code = AST) 37 U/L 14- 36 U/L ALT (test code = ALT) 37 U/L 9- 52 U/L Alkaline Phosphatase (test code = Alkaline 95 U/L 38- 1 26 U/L Phosphatase) Lipase [id number] 20:05:00 Test Item Value Reference Range Comments Lipase (test code = Lipase) 27 U/L 23- 300 U/L Rapid Group A Strep [id number] 20:05:00 Test Item Value Reference Range Comments Rapid Strep A Screen (test code = Rapid Strep A Negative Negative Screen) CBC w/ [id number] 20:05:00 Test Item Value Reference Range Comments WBC (test code = WBC) 8.5 10*9/L 4.0- 10.0 10*9/L RBC (test code = RBC) 4.41 10*12/L 3.93- 5.22 10*12/L HGB (test code = HGB) 14.2 g/dL 11.2- 15.7 g/dL HCT (test code = HCT) 42.2 % 34.1- 44.9 % MCV (test code = MCV) 95.7 fL 79.4- 94.8 fL MCH (test code = MCH) 32.2 pg 25.7- 32.2 pg MCHC (test code = MCHC) 33.6 g/dL 32.2- 35.5 g/dL RDW (test code = RDW) 12.4 % 11.6- 14.4 % MPV (test code = MPV) 10.2 fL 9.4- 12.4 fL Platelet (test code = Platelet) 218 10*9/L 182- 369 10*9/L Neutrophils % (test code = Neutrophils %) 67.0 % Immature Granulocytes Relative Percent (test 0.4 % code = Immature Granulocytes Relative Percent) Lymphocytes % (test code = Lymphocytes %) 21.4 % Monocytes % (test code = Monocytes %) 8.4 % Eosinophils % (test code = Eosinophils %) 1.9 % Basophils % (test code = Basophils %) 0.9 % Absolute Neutrophils (test code = Absolute 5.7 10*9/L 1.6- 6.1 10*9/L Neutrophils) Immature Granulocytes Absolute Count (test 0.0 10*9/L 0.0- 1.0 10*9/L code = Immature Granulocytes Absolute Count) Absolute Lymphocytes (test code = Absolute 1.8 10*9/L 1.3- 3.6 10*9/L Lymphocytes) Absolute Monocytes (test code = Absolute 0.7 10*9/L 0.2- 0. 4 10*9/L Monocytes) Absolute Eosinophils (test code = Absolute 0.2 10*9/L 0.0- 0.4 10*9/L Eosinophils) Absolute Basophils (test code = Absolute 0.1 10*9/L 0.0- 0. 1 10*9/L Basophils) POCT Urinalysis [id number] 19:27:00 Test Item Value Reference Range Comments Color, UA (test code = Color, UA) Dark Cassi Clarity, UA (test code = Clarity, UA) Clear Glucose, UA (test code = Glucose, UA) Negative Negative Bilirubin, UA (test code = Bilirubin, UA) Small Negati ve Ketones, POC (test code = Ketones, POC) Negative Negative Spec Grav, UA (test code = Spec Grav, UA) >=1.030 1.005- 1.030 Blood, UA (test code = Blood, UA) Trace-intact Negative pH, UA (test code = pH, UA) 5.5 5.0-9.0 Protein, UA (test code = Protein, UA) 30 mg/dL Negative Urobilinogen, UA (test code = 0.2 mg/dL Negative (0.2 mg/d L) Urobilinogen, UA) Leukocytes, UA (test code = Leukocytes, Negative Negative UA) Nitrite, UA (test code = Nitrite, UA) Negative Negative STRIP LOT NUMBER (test code = STRIP LOT [id number] NUMBER) STRIP LOT EXPIRATION (test code = STRIP LOT EXPIRATION) Wet Prep, [id number] 00:17:00 Test Item Value Reference Range Comments WBC, Wet Prep (test code = WBC, Wet Prep) Present Not Pr esent Clue Cells, Wet Prep (test code = Clue Cells, Not Present No t Present Wet Prep) Yeast, Wet Prep (test code = Yeast, Wet Prep) Not Present No t Present Trich, Wet Prep (test code = Trich, Wet Prep) Not Present No t Present Type and [id number] 23:12:00 Test Item Value Reference Range Comments GELABORH (test code = GELABORH) O POS Antibody Screen (test code = Antibody Screen) NEG Comprehensive Metabolic [id number] 23:12:00 Test Item Value Reference Range Comments Sodium (test code = Sodium) 147 mmol/L 137- 145 mmol/L Potassium (test code = Potassium) 3.7 mmol/L 3.5- 5.1 mmol/ L Chloride (test code = Chloride) 109 mmol/L 98- 107 mmol/L CO2 (test code = CO2) 21.0 mmol/L 22.0- 30.0 mmol/L BUN (test code = BUN) 12 mg/dL 7- 17 mg/dL Creatinine (test code = Creatinine) 0.70 mg/dL 0.60- 1.00 m g/dL BUN/Creatinine Ratio (test code = 17 BUN/Creatinine Ratio) GFR MDRD Non Af Amer (test code = GFR MDRD >=60 >=60 mL/min/1.73m2 Non Af Amer) GFR MDRD Af Amer (test code = GFR MDRD Af >=60 >=60 m L/min/1.73m2 Amer) Anion Gap (test code = Anion Gap) 17 mmol/L 9- 15 mmol/L Glucose (test code = Glucose) 101 mg/dL 74- 106 mg/dL Calcium (test code = Calcium) 9.9 mg/dL 8.4- 10.2 mg/dL Albumin (test code = Albumin) 4.5 g/dL 3.5- 5.0 g/dL Total Protein (test code = Total Protein) 8.2 g/dL 6.3- 8 .2 g/dL Total Bilirubin (test code = Total Bilirubin) 0.3 mg/dL 0. 2- 1.3 mg/dL AST (test code = AST) 45 U/L 14- 36 U/L ALT (test code = ALT) 45 U/L 9- 52 U/L Alkaline Phosphatase (test code = Alkaline 112 U/L 38- 1 26 U/L Phosphatase) Urinalysis with Culture [id number] 22:52:00 Test Item Value Reference Range Comments Color, UA (test code = Color, UA) Yellow Clarity, UA (test code = Clarity, UA) Clear pH, UA (test code = pH, UA) 5.0 5.0-8.0 Leukocyte Esterase, UA (test code = Leukocyte Negative Ne gative Esterase, UA) Nitrite, UA (test code = Nitrite, UA) Negative Negative Protein, UA (test code = Protein, UA) Negative Negative Glucose, UA (test code = Glucose, UA) Negative Negative Bilirubin, UA (test code = Bilirubin, UA) Negative Negati ve RBC, UA (test code = RBC, UA) 10 /HPF <4 /HPF WBC, UA (test code = WBC, UA) 3 /HPF 0- 2 /HPF Squam Epithel, UA (test code = Squam Epithel, UA) 5 /HPF 0- 5 /HPF Bacteria, UA (test code = Bacteria, UA) Occasional None See n /HPF Specific [place], UA (test code = Specific <=1.005 1.016 -1.022 [place], UA) Ketones, UA (test code = Ketones, UA) Negative Negative Urobilinogen, UA (test code = Urobilinogen, UA) 0.2 mg/dL 0.2 mg/dL Blood, UA (test code = Blood, UA) Small Negative CBC w/ [id number] 22:49:00 Test Item Value Reference Range Comments WBC (test code = WBC) 9.0 10*9/L 4.0- 10.0 10*9/L RBC (test code = RBC) 4.45 10*12/L 3.93- 5.22 10*12/L HGB (test code = HGB) 13.7 g/dL 11.2- 15.7 g/dL HCT (test code = HCT) 40.8 % 34.1- 44.9 % MCV (test code = MCV) 91.7 fL 79.4- 94.8 fL MCH (test code = MCH) 30.8 pg 25.7- 32.2 pg MCHC (test code = MCHC) 33.6 g/dL 32.2- 35.5 g/dL RDW (test code = RDW) 16.7 % 11.6- 14.4 % MPV (test code = MPV) 11.4 fL 9.4- 12.4 fL Platelet (test code = Platelet) 251 10*9/L 182- 369 10*9/L Neutrophils % (test code = Neutrophils %) 55.5 % Immature Granulocytes Relative Percent (test 0.2 % code = Immature Granulocytes Relative Percent) Lymphocytes % (test code = Lymphocytes %) 30.8 % Monocytes % (test code = Monocytes %) 8.3 % Eosinophils % (test code = Eosinophils %) 3.4 % Basophils % (test code = Basophils %) 1.8 % Absolute Neutrophils (test code = Absolute 5.0 10*9/L 1.6- 6.1 10*9/L Neutrophils) Immature Granulocytes Absolute Count (test 0.0 10*9/L 0.0- 1.0 10*9/L code = Immature Granulocytes Absolute Count) Absolute Lymphocytes (test code = Absolute 2.8 10*9/L 1.3- 3.6 10*9/L Lymphocytes) Absolute Monocytes (test code = Absolute 0.8 10*9/L 0.2- 0. 4 10*9/L Monocytes) Absolute Eosinophils (test code = Absolute 0.3 10*9/L 0.0- 0.4 10*9/L Eosinophils) Absolute Basophils (test code = Absolute 0.2 10*9/L 0.0- 0. 1 10*9/L Basophils) CBC w/ [id number] 22:49:00CBC w/ Differential (04/03/2017 10:49 PM) Specimen Performing Laboratory Blood [facility] Narrative The following orders were created for panel order CBC w/ Differential. Procedure Abnormality Status --------- ------ CBC w/ Differential[[id number]] AbnormalFinal result Please view results for these tests on the individual orders.[id number] 07:28:00 Test Item Value Reference Range Comments WBC (test code = WBC) 12.6 10*9/L 4.5- 11.0 10*9/L RBC (test code = RBC) 3.65 10*12/L 4.00- 5.20 10*12/L HGB (test code = HGB) 11.4 g/dL 12.0- 16.0 g/dL HCT (test code = HCT) 35.3 % 36.0- 46.0 % MCV (test code = MCV) 96.6 fL 80.0- 100.0 fL MCH (test code = MCH) 31.1 pg 26.0- 34.0 pg MCHC (test code = MCHC) 32.2 g/dL 31.0- 37.0 g/dL RDW (test code = RDW) 13.8 % 12.0- 15.0 % MPV (test code = MPV) 7.1 fL 7.0- 10.0 fL Platelet (test code = Platelet) 213 10*9/L 150- 440 10*9/L Type and [id number] 08:16:00 Test Item Value Reference Range Comments Blood Type (test code = Blood Type) O POS Antibody Screen (test code = Antibody Screen) NEG [id number] 08:16:00 Test Item Value Reference Range Comments WBC (test code = WBC) 8.2 10*9/L 4.5- 11.0 10*9/L RBC (test code = RBC) 4.06 10*12/L 4.00- 5.20 10*12/L HGB (test code = HGB) 12.6 g/dL 12.0- 16.0 g/dL HCT (test code = HCT) 38.0 % 36.0- 46.0 % MCV (test code = MCV) 93.6 fL 80.0- 100.0 fL MCH (test code = MCH) 31.0 pg 26.0- 34.0 pg MCHC (test code = MCHC) 33.1 g/dL 31.0- 37.0 g/dL RDW (test code = RDW) 13.8 % 12.0- 15.0 % MPV (test code = MPV) 6.9 fL 7.0- 10.0 fL Platelet (test code = Platelet) 224 10*9/L 150- 440 10*9/L POCT PREGANANCY, URINE, [id number] 07:21:00 Test Item Value Reference Range Comments HCG Urine, POC (test code = HCG Urine, POC) Negative Nega tive US OB < 14 Wks Transabd 1st Tri Single [id number] 23:24:07US OB < 14 Wks Transabd 1st Tri Single Gestation (01/09/2017 11:24 PM) Specimen Performing Laboratory [facility] [address] [place] [address] Impressions Sonographic features most suggestive of spontaneous with hemorrhagic material present in the lower uterine segment and cervix. No live IUP present. Serial hCG levels and follow-up ultrasound recommended. Signed (Electronic Signature):01/09/2017 11:43 PM Signed By:ROYAL LOMBARDI Narrative PROCEDURE: US OB < 14 WKS [id number] TRI SINGLE GEST CLINICAL HISTORY:Vaginal bleeding COMPARISON: TECHNIQUE: Multiplanar, real-time shea-scale and color Doppler sonographic imaging was performed. Findings: Uterus measures 9.5 x 7.5 x 5.6 cm. Myometrium is heterogeneous. No discrete measurable fibroid present. Ovaries are not identified. No discrete adnexal mass present. Echogenic debris present in the lower uterine segment and cervix. No live IUP present. Procedure Note [facility], Rad Results In - 01/09/2017 11:45 PM EDT PROCEDURE: US OB < 14 WKS TRANSABD 1ST TRI SINGLE GEST CLINICAL HISTORY: Vaginal bleeding COMPARISON: TECHNIQUE: Multiplanar, real-time shea-scale and color Doppler sonographic imaging wasperformed. Findings: Uterus measures 9.5 x 7.5 x 5.6 cm. Myometrium is heterogeneous. No discrete measurable fibroid present. Ovaries are not identified. No discrete adnexal mass present. Echogenic debris present in the lower uterine segment and cervix. No live IUP present. IMPRESSION: Sonographic features most suggestive of spontaneous with hemorrhagic material present in the lower uterine s egment and cervix. No live IUP present. Serial hCG levels and follow-up ultrasound recommended. Signed (Electronic Signature): 01/09/2017 11:43 PM Signed By: ROYAL LOMBARDIUrinalysis with Culture [id number] 19:05:00 Test Item Value Reference Range Comments Color, UA (test code = Color, UA) Red Clarity, UA (test code = Clarity, UA) Clear pH, UA (test code = pH, UA) 7.0 5.0-8.0 Leukocyte Esterase, UA (test code = Leukocyte Negative Ne gative Esterase, UA) Nitrite, UA (test code = Nitrite, UA) Negative Negative Protein, UA (test code = Protein, UA) 100 mg/dL Negative Glucose, UA (test code = Glucose, UA) Negative Negative Bilirubin, UA (test code = Bilirubin, UA) Negative Negati ve RBC, UA (test code = RBC, UA) >50 <4 /HPF WBC, UA (test code = WBC, UA) 5 /HPF 0- 2 /HPF Squam Epithel, UA (test code = Squam Epithel, UA) <1 0- 5 /HPF Bacteria, UA (test code = Bacteria, UA) None Seen None See n /HPF Specific [place], UA (test code = Specific 1.001 1.016 -1.022 [place], UA) WBC Clumps (test code = WBC Clumps) None Seen None Seen /H PF Hyphal Yeast (test code = Hyphal Yeast) None Seen None See n /HPF Ketones, UA (test code = Ketones, UA) Negative Negative Urobilinogen, UA (test code = Urobilinogen, UA) 0.2 mg/dL 0.2 mg/dL Blood, UA (test code = Blood, UA) Large Negative Yeast, UA (test code = Yeast, UA) None Seen None Seen /HPF [id number] 18:49:00 Test Item Value Reference Range Comments Blood Type (test code = Blood Type) O POS Beta hCG High Sensitivity [id number] 18:49:00 Test Item Value Reference Range Comments hCG Quant, Blood (test code = hCG Quant, Blood) 1999.6 IU/L 0.0- 4.8 IU/L Comprehensive Metabolic [id number] 18:49:00 Test Item Value Reference Range Comments Sodium (test code = Sodium) 141 mmol/L 137- 145 mmol/L Potassium (test code = Potassium) 3.9 mmol/L 3.5- 5.1 mmol/ L Chloride (test code = Chloride) 108 mmol/L 98- 107 mmol/L CO2 (test code = CO2) 21.0 mmol/L 22.0- 30.0 mmol/L BUN (test code = BUN) 7 mg/dL 7- 17 mg/dL Creatinine (test code = Creatinine) 0.55 mg/dL 0.60- 1.00 m g/dL BUN/Creatinine Ratio (test code = 13 BUN/Creatinine Ratio) GFR MDRD Non Af Amer (test code = GFR MDRD >=60 >=60 mL/min/1.73m2 Non Af Amer) GFR MDRD Af Amer (test code = GFR MDRD Af >=60 >=60 m L/min/1.73m2 Amer) Anion Gap (test code = Anion Gap) 12 mmol/L 9- 15 mmol/L Glucose (test code = Glucose) 99 mg/dL 74- 106 mg/dL Calcium (test code = Calcium) 9.2 mg/dL 8.4- 10.2 mg/dL Albumin (test code = Albumin) 4.1 g/dL 3.5- 5.0 g/dL Total Protein (test code = Total Protein) 6.6 g/dL 6.3- 8 .2 g/dL Total Bilirubin (test code = Total Bilirubin) 0.2 mg/dL 0. 2- 1.3 mg/dL AST (test code = AST) 24 U/L 14- 36 U/L ALT (test code = ALT) 35 U/L 9- 52 U/L Alkaline Phosphatase (test code = Alkaline 64 U/L 38- 1 26 U/L Phosphatase) CBC w/ [id number] 18:49:00 Test Item Value Reference Range Comments WBC (test code = WBC) 7.4 10*9/L 4.0- 10.0 10*9/L RBC (test code = RBC) 3.64 10*12/L 3.93- 5.22 10*12/L HGB (test code = HGB) 10.9 g/dL 11.2- 15.7 g/dL HCT (test code = HCT) 32.7 % 34.1- 44.9 % MCV (test code = MCV) 89.8 fL 79.4- 94.8 fL MCH (test code = MCH) 29.9 pg 25.7- 32.2 pg MCHC (test code = MCHC) 33.3 g/dL 32.2- 35.5 g/dL RDW (test code = RDW) 14.3 % 11.6- 14.4 % MPV (test code = MPV) 11.0 fL 9.4- 12.4 fL Platelet (test code = Platelet) 198 10*9/L 182- 369 10*9/L Neutrophils % (test code = Neutrophils %) 59.1 % Immature Granulocytes Relative Percent (test 0.3 % code = Immature Granulocytes Relative Percent) Lymphocytes % (test code = Lymphocytes %) 26.9 % Monocytes % (test code = Monocytes %) 8.8 % Eosinophils % (test code = Eosinophils %) 3.8 % Basophils % (test code = Basophils %) 1.1 % Absolute Neutrophils (test code = Absolute 4.4 10*9/L 1.6- 6.1 10*9/L Neutrophils) Immature Granulocytes Absolute Count (test 0.0 10*9/L 0.0- 1.0 10*9/L code = Immature Granulocytes Absolute Count) Absolute Lymphocytes (test code = Absolute 2.0 10*9/L 1.3- 3.6 10*9/L Lymphocytes) Absolute Monocytes (test code = Absolute 0.7 10*9/L 0.2- 0. 4 10*9/L Monocytes) Absolute Eosinophils (test code = Absolute 0.3 10*9/L 0.0- 0.4 10*9/L Eosinophils) Absolute Basophils (test code = Absolute 0.1 10*9/L 0.0- 0. 1 10*9/L Basophils) CBC w/ [id number] 18:49:00CBC w/ Differential (01/09/2017 6:49 PM) Specimen Performing Laboratory Blood [facility] Narrative The following orders were created for panel order CBC w/ Differential. Procedure Abnormality Status --------- ------ CBC w/ Differential[[id number]] AbnormalFinal result Please view results for these tests on the individual orders.US OB < 14 Wks Transabd 1st Tri Single [id number] 09:21:06US OB < 14 Wks Transabd 1st Tri Single Gestation (12/07/2016 9:21 AM) Specimen Performing Laboratory [facility] [address] [place] [address] Narrative PROCEDURE:US OB < 14 WKS TRANSABD 1STTRI SINGLE GEST CLINICAL HISTORY: with pelvic pain COMPARISON:None available TECHNIQUE: Multiplanar, real-time shea-scale and color Doppler sonographic imaging of the abdomen and pelvis was performed with detailed intrauterine assessment. FINDINGS: The uterus is normal in size, shape and echotexture measuring 9.8 x 6.4 x 6.2 cm.The ovaries are normal in size, shape and echotexture with normal color Doppler flow.The right ovary is 3.5 x 3.3 x 1.9 cm and the left ovary 4.1 x 3.4 x 2.7 cm. A parker live intrauterine is present with estimated gestational age by ultrasound of 5 weeks 3 days.FREDDY calculates to 08/06/2017.No heart tones were identified.Yolk sac was identified.No pole was identified.This may be due to early gestational age.No free fluid is seen in the cul-de-sac. IMPRESSION: 1.Parker live IUP with EGA of 5 weeks 3 days. 2. pole and heart tones were not detected possibly due to early gestational age.Short interval follow-up may be helpful. Signed (Electronic Signature): 12/07/2016 9:52 AM Signed By:LEILA DURAN Procedure Note Interface, Rad Results In - 12/07/2016 9:54 AM EDT PROCEDURE: US OB < 14 WKS TRANSABD 1ST TRI SINGLE GEST CLINICAL HISTORY: with pelvicpain COMPARISON: None available TECHNIQUE: Multiplanar, real-time shea-scale and color Doppler sonogr aphic imaging of the abdomen and pelvis was performed with detailed intrauterine assessment. FINDINGS: The uterus is normal in size, shape and echotexture measuring 9.8 x 6.4 x 6.2 cm. The ovaries are normal in size, shape and echotexture with normal color Doppler flow. The right ovary is 3.5 x 3.3 x 1.9 cm and the left ovary 4.1 x 3.4 x 2.7 cm. A parker live intrauterine is present withestimated gestational age by ultrasound of 5 weeks 3 days. FREDDY calculates to 08/06/2017. No heart tones were identified. Yolk sac was identified. No pole was identified. This may be due to early gestational age. No free fluid is seen in the cul-de-sac. IMPRESSION: 1. Parker live IUP with EGA of 5 weeks 3 days. 2. pole and heart tones were not detected possibly due to early gestational age. Short interval follow- up may be helpful. Signed (Electronic Signature): 12/07/2016 9:52 AM Signed By: LEILA CLINTON RUQ W [id number] 08:50:12US RUQ W Gallbladder (12/07/2016 8:50 AM) Specimen Performing Laboratory [facility] [address] [place] [address] Impressions 1. No evidence of cholelithiasis or biliary dilatation 2. Pancreas is obscured by bowel gas. Signed (Electronic Signature): 12/07/2016 9:04 AM Signed By:ROYAL LOMBARDI Narrative Procedure: US RUQ W GALLBLADDER Reason For Study: Abdominal pain Comparison: TECHNIQUE: Multiplanar, real-time shea-scale and color Doppler sonographic imaging was performed with supine and decubitus positioning. FINDINGS: The liver is normal in size, shape and echotexture. The portal and hepatic veins are patent. There is no ductal dilatation. No free fluid is seen. The gallbladder wall measures2 mm. No gallstones or sludge are identified. There is no pericholecystic fluid. Carrera's sign was not elicited. The common bile duct measures 4 mm.. The pancreas was limited in visualization, obscured by bowel gas. The aorta, IVC and retroperitoneal lymphatic structures appear grossly normal. The right kidney measures 12.0 x 4.6 cm.No hydronephrosis or perinephric fluidis seen. There is moderate cortical thinning of the right kidney. Procedure Note Interface, Rad Results In - 12/07/2016 9:07 AM EDT Procedure: US RUQ W GALLBLADDER Reason For Study: Abdominal pain Comparison: TECHNIQUE: Multiplanar, real-time shea-scale and color Doppler sonographic imaging was performed with supine and decubitus positioning. FINDINGS: The liver is normal in size, shape and echotexture. The portal and hepatic veins are patent. There is no ductal dilatation. No free fluid is seen. The gallbladder wall measures 2 mm. No gallstones or sludge are identified. There is no pericholecysticfluid. Carrera's sign was not elicited. The common bile duct measures 4 mm.. The pancreas was limitedin visualization, obscured by bowel gas. The aorta, IVC and retroperitoneal lymphatic structures appear grossly normal. The right kidney measures 12.0 x 4.6 cm. No hydronephrosis or perinephric fluid is seen. There is moderate cortical thinning of the right kidney. IMPRESSION: 1. No evidence of cholelithiasis or biliary dilatation 2. Pancreas is obscured by bowel gas. Signed (Electronic Signature): 12/07/2016 9:04 AM Signed By: ROYAL Salter Prep, [id number] 06:56:00 Test Item Value Reference Range Comments WBC, Wet Prep (test code = WBC, Wet Prep) Not Present Not Pr esent Clue Cells, Wet Prep (test code = Clue Cells, Not Present No t Present Wet Prep) Yeast, Wet Prep (test code = Yeast, Wet Prep) Not Present No t Present Trich, Wet Prep (test code = Trich, Wet Prep) Not Present No t Present POCT Urine, [id number] 06:42:00 Test Item Value Reference Range Comments HCG Urine, POC (test code = HCG Urine, POC) Positive Nega tive Instrument Specialist Internal, HCG Urine POC (test QC Acceptable code = Instrument Specialist Internal, HCG Urine POC) URINE LOT NUMBER (test code = URINE [id number] LOT NUMBER) URINE EXPIRATION DATE (test code = 06/05/2018 URINE EXPIRATION DATE) Comprehensive Metabolic [id number] 06:36:00 Test Item Value Reference Range Comments Sodium (test code = Sodium) 141 mmol/L 137- 145 mmol/L Potassium (test code = Potassium) 3.6 mmol/L 3.5- 5.1 mmol/ L Chloride (test code = Chloride) 109 mmol/L 98- 107 mmol/L CO2 (test code = CO2) 18.0 mmol/L 22.0- 30.0 mmol/L BUN (test code = BUN) 6 mg/dL 7- 17 mg/dL Creatinine (test code = Creatinine) 0.60 mg/dL 0.60- 1.00 m g/dL BUN/Creatinine Ratio (test code = 10 BUN/Creatinine Ratio) GFR MDRD Non Af Amer (test code = GFR MDRD >=60 >=60 mL/min/1.73m2 Non Af Amer) GFR MDRD Af Amer (test code = GFR MDRD Af >=60 >=60 m L/min/1.73m2 Amer) Anion Gap (test code = Anion Gap) 14 mmol/L 9- 15 mmol/L Glucose (test code = Glucose) 100 mg/dL 74- 106 mg/dL Calcium (test code = Calcium) 9.2 mg/dL 8.4- 10.2 mg/dL Albumin (test code = Albumin) 4.6 g/dL 3.5- 5.0 g/dL Total Protein (test code = Total Protein) 7.5 g/dL 6.3- 8 .2 g/dL Total Bilirubin (test code = Total Bilirubin) 0.8 mg/dL 0. 2- 1.3 mg/dL AST (test code = AST) 41 U/L 14- 36 U/L ALT (test code = ALT) 36 U/L 9- 52 U/L Alkaline Phosphatase (test code = Alkaline 85 U/L 38- 1 26 U/L Phosphatase) Lipase [id number] 06:36:00 Test Item Value Reference Range Comments Lipase (test code = Lipase) 57 U/L 23- 300 U/L Urinalysis with Culture [id number] 06:36:00 Test Item Value Reference Range Comments Color, UA (test code = Color, UA) Light Yellow Clarity, UA (test code = Clarity, UA) Hazy pH, UA (test code = pH, UA) 6.5 5.0-8.0 Leukocyte Esterase, UA (test code = Leukocyte Negative Ne gative Esterase, UA) Nitrite, UA (test code = Nitrite, UA) Negative Negative Protein, UA (test code = Protein, UA) Negative Negative Glucose, UA (test code = Glucose, UA) Negative Negative Bilirubin, UA (test code = Bilirubin, UA) Negative Negati ve Specific [place], UA (test code = Specific <=1.005 1.016 -1.022 [place], UA) Ketones, UA (test code = Ketones, UA) Negative Negative Urobilinogen, UA (test code = Urobilinogen, UA) 0.2 mg/dL 0.2 mg/dL Blood, UA (test code = Blood, UA) Negative Negative CBC w/ [id number] 06:36:00 Test Item Value Reference Range Comments WBC (test code = WBC) 8.9 10*9/L 4.0- 10.0 10*9/L RBC (test code = RBC) 4.12 10*12/L 3.93- 5.22 10*12/L HGB (test code = HGB) 12.1 g/dL 11.2- 15.7 g/dL HCT (test code = HCT) 36.2 % 34.1- 44.9 % MCV (test code = MCV) 87.9 fL 79.4- 94.8 fL MCH (test code = MCH) 29.4 pg 25.7- 32.2 pg MCHC (test code = MCHC) 33.4 g/dL 32.2- 35.5 g/dL RDW (test code = RDW) 15.8 % 11.6- 14.4 % MPV (test code = MPV) 10.1 fL 9.4- 12.4 fL Platelet (test code = Platelet) 263 10*9/L 182- 369 10*9/L Neutrophils % (test code = Neutrophils %) 65.7 % Immature Granulocytes Relative Percent (test 0.6 % code = Immature Granulocytes Relative Percent) Lymphocytes % (test code = Lymphocytes %) 20.7 % Monocytes % (test code = Monocytes %) 9.4 % Eosinophils % (test code = Eosinophils %) 2.8 % Basophils % (test code = Basophils %) 0.8 % Absolute Neutrophils (test code = Absolute 5.9 10*9/L 1.6- 6.1 10*9/L Neutrophils) Immature Granulocytes Absolute Count (test 0.1 10*9/L 0.0- 1.0 10*9/L code = Immature Granulocytes Absolute Count) Absolute Lymphocytes (test code = Absolute 1.9 10*9/L 1.3- 3.6 10*9/L Lymphocytes) Absolute Monocytes (test code = Absolute 0.8 10*9/L 0.2- 0. 4 10*9/L Monocytes) Absolute Eosinophils (test code = Absolute 0.3 10*9/L 0.0- 0.4 10*9/L Eosinophils) Absolute Basophils (test code = Absolute 0.1 10*9/L 0.0- 0. 1 10*9/L Basophils) CBC w/ [id number] 06:36:00CBC w/ Differential (12/07/2016 6:36 AM) Specimen Performing Laboratory Blood [facility] Narrative The following orders were created for panel order CBC w/ Differential. Procedure Abnormality Status --------- ------ CBC w/ Differential[[id number]] AbnormalFinal result Please view results for these tests on the individual orders.XR Chest PA and [id number] 13:00:02XR Chest PA and Lateral (10/13/2016 1:00 PM) Specimen Performing Laboratory [facility] [id number] [address] Impressions Negative exam. Signed (Electronic Signature): 10/13/2016 1:02 PM Signed By: Taran Kirkland MD Narrative Exam:CR Chest Two Views History:Pain. Technique:2 viewsComparison:Prior chest radiograph 09/17/2016. Findings:Lungs are clear. No pleural effusion or pneumothorax. Cardiomediastinal silhouette and javier without focal abnormality. Regional osseous structures negative. Procedure Note [employer], [employer] Results In - 10/13/2016 1:04 PM EDT Exam: CR Chest Two Views History: Pain. Technique: 2 views Comparison: Prior chest radiograph 09/17/2016. Findings: Lungs are clear. No pleural effusion or pneumothorax. Cardiomediastinal silhouette and javier without focal abnormality. Regional osseous structures negative. IMPRESSION: Negative exam. Signed (Electronic Signature): 10/13/2016 1:02 PM Signed By: ELIZABETH LeslieR Foot 3 Or More Views [id number] 12:59:02XR Foot 3 Or More Views Right (10/13/2016 12:59 PM) Specimen Performing Laboratory [facility] [address] [place] [address] Impressions Negative right foot. Signed (Electronic Signature): 10/13/2016 1:01 PM Signed By: Taran Kirkland MD Narrative Exam:Right Foot History:Pain. Technique:3 views. Comparison:None. Findings:There is no fracture or malalignment. No bone destruction or periosteal reaction. No erosions are evident. The joint spaces and bone density are normal for age. No soft tissue abnormality is noted. There is no radiopaque foreign body. Procedure Note [employer], [employer] Results In - 10/13/2016 1:03 PM EDT Exam: Right Foot History: Pain. Technique: 3 views. Comparison: None. Findings: There is no fracture or malalignment. No bone destruction or periosteal reaction. No erosions are evident. The joint spaces and bone density are normal for age. No soft tissue abnormality is noted. There is no radiopaque foreign body. IMPRESSION: Negative right foot. Signed (Electronic Signature): 10/13/2016 1:01 PM Signed By: AVA LeslieOCT Urine, [id number] 11:39:00 Test Item Value Reference Range Comments HCG Urine, POC (test code = HCG Urine, POC) Negative Nega tive Instrument Specialist Internal, HCG Urine POC (test QC Acceptable code = Instrument Specialist Internal, HCG Urine POC) URINE LOT NUMBER (test code = URINE [id number] LOT NUMBER) URINE EXPIRATION DATE (test code = 2018-02-04 URINE EXPIRATION DATE) US Endovaginal (Non-OB) ([id number])2016-08-20 11:12:38US Endovaginal (Non-OB) ([id number]) (08/20/2016 11:12 AM) Narrative POS (PC): 3 HISTORY: follow up left a dnexal complex-N94.9-Adnexal mass? TECHNIQUE: Endovaginal sonographic evaluation pelvis. FINDINGS: Comparison report prior ultrasound study June [address] May 25, 2016. Endovaginal findings: Uterus measures 8.8 x 6.5 x 5.3cm. No abnormality. Endometrium measures 11 mm. Right ovary measures 3.6 x 2.4 x 2.0cm. incidental dominant follicle noted. No complex adnexal mass.. Normal Doppler flow signal. Left ovary measures 5.4 x 4.0 x 3.6cm. cyst or dominant follicle 2.8 x 2.0 cm insize. Adjacent mixed echotexture mass measures 3.6 x 2.7 x 2.4 cm, exhibits posterior shadowing and may represent a dermoid. Normal Doppler flow signal. No free fluid. IMPRESSION: 1. Mixed echotexture p artially shadowing left adnexal mass appears similar to that described on the previous study, potentially hemorrhagic or complex cyst although lesion such as dermoid or other ovarian neoplasm are differential considerations. Consider pelvic MRI for clarification. 2. The tubular/cystic structure noted on the previous outside CT study is not well demonstrated by ultrasound on the current exam.. 3. Bilateral ovarian cyst or follicle formation.. ? Signed (Electronic Signature): 08/20/2016 12:18 PM Signed By: Ji Davis MD Procedure Note Interface, Rad Results In - Lucia Aug 20, 2016 12:21 PM EDT POS (PC): 3 HISTORY: follow up left adnexal complex-N94.9-Adnexal mass TECHNIQUE: Endovaginal sonographic evaluation pelvis. FINDINGS: Comparison report prior ultrasound study June [address] May 25, 2016. Endovaginal findings: Uterus measures 8.8 x 6.5 x 5.3cm. No abnormality. Endometrium measures 11 mm. Right ovary measures 3.6 x 2.4 x 2.0cm. incidental dominant follicle noted. No complex adnexal mass.. Normal Doppler flow signal. Left ovary measures 5.4 x 4.0 x 3.6cm. cyst or dominant follicle 2.8 x 2.0 cm in size. Adjacent mixed echotexture mass measures 3.6 x 2.7 x 2.4 cm, exhibits posterior shadowing and may represent a dermoid. Normal Doppler flow signal. No free fluid. IMPRESSION: 1. Mixed echotexture partially shadowing left adnexal mass appears similar to that described on the previous study, potentially hemorrhagic or complex cyst although lesion such as dermoid or other ovarian neoplasm are differential considerations. Consider pelvic MRI for clarification. 2. The tubular/cystic structure noted on the previous outside CT study is not well demonstrated by ultrasound on the current exam.. 3. Bilateral ovarian cyst or follicle formation.. Signed (Electronic Signature): 08/20/2016 12:18 PM Signed By: Ji Davis MDThe [facility] Of Living Metabolic [id number] 04:54:00 Test Item Value Reference Range Comments Sodium (test code = Sodium) 140 mmol/L 137-145 mmol/L Potassium (test code = Potassium) 4.2 mmol/L 3.5-5.1 mmol/L Chloride (test code = Chloride) 104 mmol/L 98-107 mmol/L CO2 (test code = CO2) 26.0 mmol/L 22.0-30.0 mmol/L BUN (test code = BUN) 14 mg/dL 7-17 mg/dL Creatinine (test code = Creatinine) 0.60 mg/dL 0.70-1.20 mg /dL BUN/Creatinine Ratio (test code = 23 BUN/Creatinine Ratio) GFR MDRD Non Af Amer (test code = GFR MDRD >=60 >=60 mL/min/1.73m2 Non Af Amer) GFR MDRD Af Amer (test code = GFR MDRD Af >=60 >=60 m L/min/1.73m2 Amer) Anion Gap (test code = Anion Gap) 10 mmol/L 9-15 mmol/L Glucose (test code = Glucose) 136 mg/dL 74-106 mg/dL Calcium (test code = Calcium) 8.8 mg/dL 8.4-10.2 mg/dL Basic Metabolic [id number] 03:20:00 Test Item Value Reference Range Comments Sodium (test code = Sodium) 141 mmol/L 137-145 mmol/L Potassium (test code = Potassium) 4.0 mmol/L 3.5-5.1 mmol/L Chloride (test code = Chloride) 107 mmol/L 98-107 mmol/L CO2 (test code = CO2) 25.0 mmol/L 22.0-30.0 mmol/L BUN (test code = BUN) 13 mg/dL 7-17 mg/dL Creatinine (test code = Creatinine) 0.60 mg/dL 0.70-1.20 mg /dL BUN/Creatinine Ratio (test code = 22 BUN/Creatinine Ratio) GFR MDRD Non Af Amer (test code = GFR MDRD >=60 >=60 mL/min/1.73m2 Non Af Amer) GFR MDRD Af Amer (test code = GFR MDRD Af >=60 >=60 m L/min/1.73m2 Amer) Anion Gap (test code = Anion Gap) 9 mmol/L 9-15 mmol/L Glucose (test code = Glucose) 101 mg/dL 74-106 mg/dL Calcium (test code = Calcium) 8.1 mg/dL 8.4-10.2 mg/dL Basic Metabolic [id number] 05:24:00 Test Item Value Reference Range Comments Sodium (test code = Sodium) 140 mmol/L 137-145 mmol/L Potassium (test code = Potassium) 4.4 mmol/L 3.5-5.1 mmol/L Chloride (test code = Chloride) 106 mmol/L 98-107 mmol/L CO2 (test code = CO2) 25.0 mmol/L 22.0-30.0 mmol/L BUN (test code = BUN) 11 mg/dL 7-17 mg/dL Creatinine (test code = Creatinine) 0.50 mg/dL 0.70-1.20 mg /dL BUN/Creatinine Ratio (test code = 22 BUN/Creatinine Ratio) GFR MDRD Non Af Amer (test code = GFR MDRD >=60 >=60 mL/min/1.73m2 Non Af Amer) GFR MDRD Af Amer (test code = GFR MDRD Af >=60 >=60 m L/min/1.73m2 Amer) Anion Gap (test code = Anion Gap) 9 mmol/L 9-15 mmol/L Glucose (test code = Glucose) 158 mg/dL 74-106 mg/dL Calcium (test code = Calcium) 8.1 mg/dL 8.4-10.2 mg/dL Basic Metabolic [id number] 05:01:00 Test Item Value Reference Range Comments Sodium (test code = Sodium) 140 mmol/L 137-145 mmol/L Potassium (test code = Potassium) 3.8 mmol/L 3.5-5.1 mmol/L Chloride (test code = Chloride) 104 mmol/L 98-107 mmol/L CO2 (test code = CO2) 26.0 mmol/L 22.0-30.0 mmol/L BUN (test code = BUN) 9 mg/dL 7-17 mg/dL Creatinine (test code = Creatinine) 0.50 mg/dL 0.70-1.20 mg /dL BUN/Creatinine Ratio (test code = 18 BUN/Creatinine Ratio) GFR MDRD Non Af Amer (test code = GFR MDRD >=60 >=60 mL/min/1.73m2 Non Af Amer) GFR MDRD Af Amer (test code = GFR MDRD Af >=60 >=60 m L/min/1.73m2 Amer) Anion Gap (test code = Anion Gap) 10 mmol/L 9-15 mmol/L Glucose (test code = Glucose) 161 mg/dL 74-106 mg/dL Calcium (test code = Calcium) 8.0 mg/dL 8.4-10.2 mg/dL [id number] 04:56:00 Test Item Value Reference Range Comments WBC (test code = WBC) 9.7 10*9/L 4.0-10.0 10*9/L RBC (test code = RBC) 3.68 10*12/L 3.93-5.22 10*12/L HGB (test code = HGB) 11.3 g/dL 11.2-15.7 g/dL HCT (test code = HCT) 33.9 % 34.1-44.9 % MCV (test code = MCV) 92.1 fL 79.4-94.8 fL MCH (test code = MCH) 30.7 pg 25.7-32.2 pg MCHC (test code = MCHC) 33.3 g/dL 32.2-35.5 g/dL RDW (test code = RDW) 13.0 % 11.6-14.4 % MPV (test code = MPV) 10.2 fL 9.4-12.4 fL Platelet (test code = Platelet) 361 10*9/L 182-369 10*9/L Basic Metabolic [id number] 04:47:00 Test Item Value Reference Range Comments Sodium (test code = Sodium) 142 mmol/L 137-145 mmol/L Potassium (test code = Potassium) 3.7 mmol/L 3.5-5.1 mmol/L Chloride (test code = Chloride) 110 mmol/L 98-107 mmol/L CO2 (test code = CO2) 24.0 mmol/L 22.0-30.0 mmol/L BUN (test code = BUN) 6 mg/dL 7-17 mg/dL Creatinine (test code = Creatinine) 0.50 mg/dL 0.70-1.20 mg /dL BUN/Creatinine Ratio (test code = 12 BUN/Creatinine Ratio) GFR MDRD Non Af Amer (test code = GFR MDRD >=60 >=60 mL/min/1.73m2 Non Af Amer) GFR MDRD Af Amer (test code = GFR MDRD Af >=60 >=60 m L/min/1.73m2 Amer) Anion Gap (test code = Anion Gap) 8 mmol/L 9-15 mmol/L Glucose (test code = Glucose) 155 mg/dL 74-106 mg/dL Calcium (test code = Calcium) 7.8 mg/dL 8.4-10.2 mg/dL [id number] 04:47:00 Test Item Value Reference Range Comments WBC (test code = WBC) 11.0 10*9/L 4.0-10.0 10*9/L RBC (test code = RBC) 3.22 10*12/L 3.93-5.22 10*12/L HGB (test code = HGB) 9.8 g/dL 11.2-15.7 g/dL HCT (test code = HCT) 29.7 % 34.1-44.9 % MCV (test code = MCV) 92.2 fL 79.4-94.8 fL MCH (test code = MCH) 30.4 pg 25.7-32.2 pg MCHC (test code = MCHC) 33.0 g/dL 32.2-35.5 g/dL RDW (test code = RDW) 13.2 % 11.6-14.4 % MPV (test code = MPV) 10.2 fL 9.4-12.4 fL Platelet (test code = Platelet) 330 10*9/L 182-369 10*9/L [id number] 04:12:00 Test Item Value Reference Range Comments WBC (test code = WBC) 13.5 10*9/L 4.0-10.0 10*9/L RBC (test code = RBC) 3.05 10*12/L 3.93-5.22 10*12/L HGB (test code = HGB) 9.5 g/dL 11.2-15.7 g/dL HCT (test code = HCT) 28.6 % 34.1-44.9 % MCV (test code = MCV) 93.8 fL 79.4-94.8 fL MCH (test code = MCH) 31.1 pg 25.7-32.2 pg MCHC (test code = MCHC) 33.2 g/dL 32.2-35.5 g/dL RDW (test code = RDW) 13.1 % 11.6-14.4 % MPV (test code = MPV) 10.2 fL 9.4-12.4 fL Platelet (test code = Platelet) 307 10*9/L 182-369 10*9/L Basic Metabolic [id number] 04:12:00 Test Item Value Reference Range Comments Sodium (test code = Sodium) 143 mmol/L 137-145 mmol/L Potassium (test code = Potassium) 3.0 mmol/L 3.5-5.1 mmol/L Chloride (test code = Chloride) 111 mmol/L 98-107 mmol/L CO2 (test code = CO2) 24.0 mmol/L 22.0-30.0 mmol/L BUN (test code = BUN) 7 mg/dL 7-17 mg/dL Creatinine (test code = Creatinine) 0.60 mg/dL 0.70-1.20 mg /dL BUN/Creatinine Ratio (test code = 12 BUN/Creatinine Ratio) GFR MDRD Non Af Amer (test code = GFR MDRD >=60 >=60 mL/min/1.73m2 Non Af Amer) GFR MDRD Af Amer (test code = GFR MDRD Af >=60 >=60 m L/min/1.73m2 Amer) Anion Gap (test code = Anion Gap) 8 mmol/L 9-15 mmol/L Glucose (test code = Glucose) 169 mg/dL 74-106 mg/dL Calcium (test code = Calcium) 7.7 mg/dL 8.4-10.2 mg/dL BLASTOMYCES [id number] 04:12:00 Test Item Value Reference Range Comments Blastomyces Ab (test code = Blastomyces Ab) Negative Nega tive HISTOPLASMA ANTIBODY [id number] 04:12:00 Test Item Value Reference Range Comments Histoplasma Ab Mycelial CF (test code = Histoplasma Negative Negative Ab Mycelial CF) Histoplasma Ab Yeast CF (test code = Histoplasma Ab Negative Negative Yeast CF) Histoplasma Ab, Immunodiffusion (test code = Negative Neg ative Histoplasma Ab, Immunodiffusion) Aspergillus Antibodies, [id number] 04:12:00 Test Item Value Reference Range Comments Aspergillus Fumigatus IgG (test code = Aspergillus 4.4 mg/L <=102 mg/L Fumigatus IgG) CT Chest Wo [id number] 13:13:42CT Chest Wo Contrast (08/07/2016 1:13 PM) Narrative PROCEDURES :CT CHEST WO CONTRAST REASON FOR PROCEDURE: Chest pain COMPARISON: Previous available comparisons were reviewed TECHNIQUE: .65 mm axial source images were obtained without contrast with multiplanar reconstructions. Automated exposure control adjustment of MA and/or KV according to patient size FINDINGS: LUNGS: Multifocal alveolar airspacedisease particularly in the upper lobes bilaterally. Different diagnosis would include infectious multilobar pneumonia/aspiration. No pleural effusion. No pneumothorax. MEDIASTINUM: No evidence of pathologic mediastinal or hilar adenopathy. PULMONARY VASCULATURE: Limited evaluation. Normal size. HEART/THORACIC AORTA: Thoracic aorta is normal in diameter without aneurysm or dissection. No evidence of cardiac enlargement. No pericardial effusions. MUSCULOSKELETAL: Osseous structures are normal for chronological age. No evidence of acute fracture. No focal lytic or blastic lesions are identified. The axillary/supraclavicular regions appear normal bilaterally without pathologic adenopathy. OTHER: Limited evaluation of the upper abdomen demonstrates normal appearance to the adrenal gland bilaterally. L imited evaluation of the liver is unremarkable. IMPRESSION:? 1. Multifocal alveolar airspace disease Signed (Electronic Signature): 08/07/2016 1:36 PM Signed By:?SAMIR RHODES MD Procedure Note Interface, Rad Results In - WedAug 07, 2016 1:38 PM EDT PROCEDURES :CT CHEST WO CONTRAST REASON FOR PROCEDURE: Chest pain COMPARISON: Previous available comparisons were reviewed TECHNIQUE: .65 mm axial source images were obtained without contrast with multiplanar reconstructions. Automated exposure control adjustment of MA and/or KV according to patient size FINDINGS: LUNGS: Multifocal alveolar airspace disease particularly in the upper lobes bilaterally. Different diagnosis would include infectious multilobar pneumonia/aspiration. No pleural effusion. No pneumothorax. MEDIASTINUM: No evidence of pathologic mediastinal or hilar adenopathy. PULMONARY VASCULATURE: Limited evaluation. Normal size. HEART /THORACIC AORTA: Thoracic aorta is normal in diameter without aneurysm or dissection. No evidence ofcardiac enlargement. No pericardial effusions. MUSCULOSKELETAL: Osseous structures are normal for chronological age. No evidence of acute fracture. No focal lytic or blastic lesions are identified. Theaxillary/supraclavicular regions appear normal bilaterally without pathologic adenopathy. OTHER: Limited evaluation of the upper abdomen demonstrates normal appearance to the adrenal gland bilaterally.Limited evaluation of the liver is unremarkable. IMPRESSION: 1. Multifocal alveolar airspace diseaseSigned (Electronic Signature): 08/07/2016 1:36 PM Signed By: SAMIR RHODES [facility] 2016-08-06 03:12:00 Test Item Value Reference Range Comments WBC (test code = WBC) 14.4 10*9/L 4.0-10.0 10*9/L RBC (test code = RBC) 3.34 10*12/L 3.93-5.22 10*12/L HGB (test code = HGB) 10.2 g/dL 11.2-15.7 g/dL HCT (test code = HCT) 31.3 % 34.1-44.9 % MCV (test code = MCV) 93.7 fL 79.4-94.8 fL MCH (test code = MCH) 30.5 pg 25.7-32.2 pg MCHC (test code = MCHC) 32.6 g/dL 32.2-35.5 g/dL RDW (test code = RDW) 13.0 % 11.6-14.4 % MPV (test code = MPV) 10.4 fL 9.4-12.4 fL Platelet (test code = Platelet) 276 10*9/L 182-369 10*9/L C. Difficile [id number] 02:41:00 Test Item Value Reference Range Comments C. Diff JULIET (test code = C. Diff JULIET) Negative Negative Magnesium [id number] 04:57:00 Test Item Value Reference Range Comments Magnesium (test code = Magnesium) 1.6 mg/dL 1.6-2.3 mg/dL Comprehensive metabolic [id number] 04:57:00 Test Item Value Reference Range Comments Sodium (test code = Sodium) 141 mmol/L 137-145 mmol/L Potassium (test code = Potassium) 3.5 mmol/L 3.5-5.1 mmol/L Chloride (test code = Chloride) 107 mmol/L 98-107 mmol/L CO2 (test code = CO2) 19.0 mmol/L 22.0-30.0 mmol/L BUN (test code = BUN) 3 mg/dL 7-17 mg/dL Creatinine (test code = Creatinine) 0.60 mg/dL 0.70-1.20 mg /dL BUN/Creatinine Ratio (test code = 5 BUN/Creatinine Ratio) GFR MDRD Non Af Amer (test code = GFR MDRD >=60 >=60 mL/min/1.73m2 Non Af Amer) GFR MDRD Af Amer (test code = GFR MDRD Af >=60 >=60 m L/min/1.73m2 Amer) Anion Gap (test code = Anion Gap) 15 mmol/L 9-15 mmol/L Glucose (test code = Glucose) 167 mg/dL 74-106 mg/dL Calcium (test code = Calcium) 8.1 mg/dL 8.4-10.2 mg/dL Albumin (test code = Albumin) 3.9 g/dL 3.5-5.0 g/dL Total Protein (test code = Total Protein) 7.0 g/dL 6.3-8. 2 g/dL Total Bilirubin (test code = Total Bilirubin) 0.4 mg/dL 0. 2-1.3 mg/dL AST (test code = AST) 58 U/L 14-36 U/L ALT (test code = ALT) 42 U/L 9-52 U/L Alkaline Phosphatase (test code = Alkaline 79 U/L 38-12 6 U/L Phosphatase) CBC w/ [id number] 04:57:00 Test Item Value Reference Range Comments WBC (test code = WBC) 18.9 10*9/L 4.0-10.0 10*9/L RBC (test code = RBC) 3.44 10*12/L 3.93-5.22 10*12/L HGB (test code = HGB) 10.7 g/dL 11.2-15.7 g/dL HCT (test code = HCT) 31.7 % 34.1-44.9 % MCV (test code = MCV) 92.2 fL 79.4-94.8 fL MCH (test code = MCH) 31.1 pg 25.7-32.2 pg MCHC (test code = MCHC) 33.8 g/dL 32.2-35.5 g/dL RDW (test code = RDW) 12.8 % 11.6-14.4 % MPV (test code = MPV) 11.0 fL 9.4-12.4 fL Platelet (test code = Platelet) 265 10*9/L 182-369 10*9/L Manual [id number] 04:57:00 Test Item Value Reference Range Comments Neutrophils % (test code = Neutrophils %) 92 % Lymphocytes % (test code = Lymphocytes %) 1 % Monocytes % (test code = Monocytes %) 1 % Basophils % (test code = Basophils %) 1 % Metamyelocytes % (test code = Metamyelocytes %) 1 % Atypical Lymphocytes % (test code = Atypical 4 % Lymphocytes %) Absolute Neutrophils (test code = Absolute 17.4 10*9/L 1.6-6 .1 10*9/L Neutrophils) Absolute Lymphocytes (test code = Absolute 0.9 10*9/L 1.3-3 .6 10*9/L Lymphocytes) Absolute Monocytes (test code = Absolute 0.2 10*9/L 0.2-0.4 10*9/L Monocytes) Absolute Basophils (test code = Absolute 0.2 10*9/L 0.0-0.1 10*9/L Basophils) Hemoglobin [id number] 04:57:00 Test Item Value Reference Range Comments Hemoglobin A1C (test code = Hemoglobin A1C) 6.4 % 4.8- 6.0 % Estimated Average Glucose (test code = Estimated 137 mg/dL Average Glucose) CBC w/ [id number] 04:57:00CBC w/ Differential (08/05/2016 4:57 AM) Specimen Blood Narrative The following orders were created for panel order CBC w/ Differential. Procedure? Abnormality? Status? ---------? ------? CBC w/ Differential[[id number]]? Abnormal?Final result? Manual Differential[[id number]]? Abnormal?Final result? Please view results for these tests on the individualorders.[id number] 20:45:00 Test Item Value Reference Range Comments Lactate (test code = Lactate) 2.9 mmol/L 0.7-2.0 mmol/L ED EKG [id number] 19:22:43ED EKG Interpretation (08/04/2016 7:22 PM) Narrative THEA Canales? 08/04/2016?7:22 PM ED Procedure Note EKG Interpretation Date/Time: 08/04/2016 7:22 PM Performed by: KASANDRA FULTON Authorized by: ROYAL GURROLA ECG reviewed by ED Physician in the absence of a top loader: yes? Interpretation: ?Interpretation: abnormal? Rate: ?ECG rate:?128 ?ECG rate assessment: tachycardic? Rhythm: ?Rhythm: sinus tachycardia? Ectopy: ?Ectopy: none? QRS: ?QRS axis:?Normal ?QRS intervals:?Normal Conduction: ?Conduction: normal?ST segments: ?ST segments:?Normal T waves: ?T waves: normal?Critical [id number] 19:21:58Critical Care (08/04/2016 7:21 PM) Narrative THEA Canales? 08/04/2016?7:21 PM ED Procedure Note Critical Care Performed by: KASANDRA FULTON Authorized by: ROYAL GURROLA Critical care provider statement: ?Critical care time (minutes):?45 ?Critical care start time:?08/04/2016 5:38 PM ?Critical care end time:?08/04/2016 7:38 PM ?Critical care time was exclusive of:?Separately billable procedures and treating other patients ?Critical care was necessary to treat or prevent imminent or life-threatening deterioration of the following conditions:? Respiratory failure, metabolic crisis and dehydration ?Critical care was time spent personally by me on the following activities:?Blood draw for specimens, obtaining history from patient or surrogate, discussions with consultants, evaluation of patient's response to treatment, examinationof patient, ordering and performing treatments and interventions, ordering and review of laboratory studies, ordering and review of radiographic studies, review of old charts and re-evaluation of patient's condition ?I assumed direction of critical care for this patient from another provider in my s pecialty: no?ECG 12 [id number] 19:01:03ECG 12 Lead (08/04/2016 7:01 PM) Narrative ? [facility] ? Test Date:?[id number] Name:? JODY TORO?Department:? Room:? 06 Gender:? 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 Requested By: ROYAL FOXJUAN ANITA Order Number: [id number]? Reading MD:? Joshua Indio ? Measurements Intervals?[place]? Rate:? 128?P:?47 ME:? 125?QRS:?60 QRSD:? 90? T:?2 QT:? 328 ? QTc:?479? Interpretive Statements SEE INTERPRETATION IN EPIC. Procedure Note Interface, Rad Results In - Wed August 05, 2016 10:37 AM EDT [facility] Test Date: 2016-08-04 Pat Name: JODY TORO Department: Room: 06 Gender: F Junior Mechanical Engineer: : 1970 Requested By: ROYAL HOWARD Order Number: [id number] Reading MD: Joshua Garcia Measurements Intervals [place] Rate: 128 P: 47 ME: 125 QRS: 60 QRSD: 90 T: 2 QT: 328 QTc: 479 Interpretive Statements SEE INTERPRETATION IN EPIC.Influenza A and B [id number] 18:16:00 Test Item Value Reference Range Comments Influenza A Ag, EIA (test code = Influenza A Ag, Negative Negative EIA) Influenza B Ag, EIA (test code = Influenza B Ag, Negative Negative EIA) XR Chest PA and [id number] 18:07:49XR Chest PA and Lateral (08/04/2016 6:07 PM) Narrative PROCEDURE: XR CHEST PA AND LATERAL CLINICAL HI STORY:?Sepsis COMPARISON:?08/03/2016. FINDINGS:? Interval appearance of patchy consolidation in the lower left lung on the frontal view, corresponding to the lingula on lateral view and compatible with pneumonia.?Right lung is clear.?Heart size normal.?No pneumothorax.?Osseous structures are unremarkable.? IMPRESSION:? Lingular pneumonia. Signed (Electronic Signature): 08/05/2016 8:00 AM Signed By:?VITOR DAVIS Procedure Note Interface, Rad Results In - WedAugust 05, 2016 8:02 AM EDT PROCEDURE: XR CHEST PA AND LATERAL CLINICAL HISTORY: Sepsis COMPARISON: 08/03/2016. FINDINGS: Interval appearance of patchy consolidation in the lower left lung on the frontal view, corresponding to the lingula on lateral view and compatible with pneumonia. Right lung is clear. Heart size normal. No pneumothorax. Osseous structures are unremarkable. IMPRESSION: Lingular pneumonia. Signed (Electronic Signature): 08/05/2016 8:00 AM Signed By: VITOR DAVISBlood Culture #[id number] 17:50:00 Test Item Value Reference Range Comments Blood Culture, Routine (test code = No Growth at 5 days Blood Culture, Routine) Lactate, [id number] 17:42:00 Test Item Value Reference Range Comments Lactate (test code = Lactate) 1.9 mmol/L 0.7-2.0 mmol/L Comprehensive Metabolic [id number] 17:42:00 Test Item Value Reference Range Comments Sodium (test code = Sodium) 139 mmol/L 137-145 mmol/L Potassium (test code = Potassium) 3.3 mmol/L 3.5-5.1 mmol/L Chloride (test code = Chloride) 101 mmol/L 98-107 mmol/L CO2 (test code = CO2) 22.0 mmol/L 22.0-30.0 mmol/L BUN (test code = BUN) 3 mg/dL 7-17 mg/dL Creatinine (test code = Creatinine) 0.60 mg/dL 0.70-1.20 mg /dL BUN/Creatinine Ratio (test code = 5 BUN/Creatinine Ratio) GFR MDRD Non Af Amer (test code = GFR MDRD >=60 >=60 mL/min/1.73m2 Non Af Amer) GFR MDRD Af Amer (test code = GFR MDRD Af >=60 >=60 m L/min/1.73m2 Amer) Anion Gap (test code = Anion Gap) 16 mmol/L 9-15 mmol/L Glucose (test code = Glucose) 122 mg/dL 74-106 mg/dL Calcium (test code = Calcium) 8.6 mg/dL 8.4-10.2 mg/dL Albumin (test code = Albumin) 4.1 g/dL 3.5-5.0 g/dL Total Protein (test code = Total Protein) 7.3 g/dL 6.3-8. 2 g/dL Total Bilirubin (test code = Total Bilirubin) 0.5 mg/dL 0. 2-1.3 mg/dL AST (test code = AST) 47 U/L 14-36 U/L ALT (test code = ALT) 38 U/L 9-52 U/L Alkaline Phosphatase (test code = Alkaline 87 U/L 38-12 6 U/L Phosphatase) Lipase [id number] 17:42:00 Test Item Value Reference Range Comments Lipase (test code = Lipase) 49 U/L 23-300 U/L Blood Culture #[id number] 17:42:00 Test Item Value Reference Range Comments Blood Culture, Routine (test code = No Growth at 5 days Blood Culture, Routine) Urinalysis with Culture [id number] 17:42:00 Test Item Value Reference Range Comments Color, UA (test code = Color, UA) Yellow Clarity, UA (test code = Clarity, UA) Clear pH, UA (test code = pH, UA) 5.5 5.0-8.0 Leukocyte Esterase, UA (test code = Leukocyte Negative Ne gative Esterase, UA) Nitrite, UA (test code = Nitrite, UA) Negative Negative Protein, UA (test code = Protein, UA) Negative Negative Glucose, UA (test code = Glucose, UA) Negative Negative Bilirubin, UA (test code = Bilirubin, UA) Negative Negati ve RBC, UA (test code = RBC, UA) 1 /HPF <4 /HPF Specific [place], UA (test code = Specific <=1.005 1.016 -1.022 [place], UA) Ketones, UA (test code = Ketones, UA) Negative Negative Urobilinogen, UA (test code = Urobilinogen, UA) 0.2 mg/dL 0.2 mg/dL Blood, UA (test code = Blood, UA) Trace Negative CBC w/ [id number] 17:42:00 Test Item Value Reference Range Comments WBC (test code = WBC) 15.7 10*9/L 4.0-10.0 10*9/L RBC (test code = RBC) 3.76 10*12/L 3.93-5.22 10*12/L HGB (test code = HGB) 11.7 g/dL 11.2-15.7 g/dL HCT (test code = HCT) 34.8 % 34.1-44.9 % MCV (test code = MCV) 92.6 fL 79.4-94.8 fL MCH (test code = MCH) 31.1 pg 25.7-32.2 pg MCHC (test code = MCHC) 33.6 g/dL 32.2-35.5 g/dL RDW (test code = RDW) 12.7 % 11.6-14.4 % MPV (test code = MPV) 10.6 fL 9.4-12.4 fL Platelet (test code = Platelet) 257 10*9/L 182-369 10*9/L Neutrophils % (test code = Neutrophils %) 82.9 % Lymphocytes % (test code = Lymphocytes %) 8.2 % Monocytes % (test code = Monocytes %) 7.0 % Eosinophils % (test code = Eosinophils %) 1.1 % Basophils % (test code = Basophils %) 0.4 % Absolute Neutrophils (test code = Absolute 13.0 10*9/L 1.6-6 .1 10*9/L Neutrophils) Absolute Lymphocytes (test code = Absolute 1.3 10*9/L 1.3-3 .6 10*9/L Lymphocytes) Absolute Monocytes (test code = Absolute 1.1 10*9/L 0.2-0.4 10*9/L Monocytes) Absolute Eosinophils (test code = Absolute 0.2 10*9/L 0.0-0 .4 10*9/L Eosinophils) Absolute Basophils (test code = Absolute 0.1 10*9/L 0.0-0.1 10*9/L Basophils) Immature Granulocytes Relative Percent (test 0.4 % code = Immature Granulocytes Relative Percent) Immature Granulocytes Absolute Count (test 0.1 10*9/L 0.0-1 .0 10*9/L code = Immature Granulocytes Absolute Count) CBC w/ [id number] 17:42:00CBC w/ Differential (08/04/2016 5:42 PM) Specimen Blood Narrative The following orders were created for panel order CBC w/ Differential. Procedure? Abnormality? Status? ---------? ------? CBC w/ Differential[[id number]]? Abnormal?Final result? Please view results for these tests on the individual orders. Advance Directives Directive Decision Effective Date Termination Date Comments Patient has a power of prosecuting attorney for N/A healthcare. For more information, please contact: [address] [address] Encounters Start End Encounter Admission Attending Care Care Encounter ID Date/Time Date/Time Type Type Clinicians Facility Department 2019-08-03 2019-08-03 Outpatient [facility] [id number] 00:00:00 00:00:00 2018-11-01 2018-11-01 Emergency ER PAGE, [facility] [id number] 02:45:54 04:35:00 CHELA [id number] 2018-11-01 2018-11-01 Emergency [facility] [id number] 02:45:54 04:35:00 2018-11-01 2018-11-01 Emergency [facility] [id number] 03:19:32 03:19:32 [id number] 2018-11-01 2018-11-01 Emergency [facility] [id number] 03:11:15 03:11:15 [id number] 2018-11-01 2018-11-01 Emergency ER [facility] [id number] 02:45:00 02:45:00 [id number] 2018-10-10 2018-10-10 Outpatient [facility] [id number] 00:00:00 00:00:00 2018-09-16 2018-09-16 Emergency [facility] [id number] 19:15:16 21:33:00 2018-09-16 2018-09-16 Emergency ER NAMDE, [facility] [id number] 19:15:16 21:33:00 KAUSHAL [id number] 6 2018-09-16 2018-09-16 Emergency [facility] [id number] 20:32:22 20:32:22 [id number] 2018-09-16 2018-09-16 Emergency ER [facility] [id number] 18:56:00 18:56:00 [id number] 2018-09-16 2018-09-16 Emergency [facility] [id number] 00:00:00 00:00:00 [id number] 2018-01-20 2018-01-20 Outpatient [facility] [id number] 00:00:00 00:00:00 2018-01-11 2018-01-11 Outpatient [facility] [id number] 00:00:00 00:00:00 2018-01-10 2018-01-10 Out[facility] [id number] 00:00:00 00:00:00 2018-01-06 2018-01-06 [facility] [id number] 00:00:00 00:00:00 2018-01-06 2018-01-06 [facility] [id number] 00:00:00 00:00:00 2018-01-04 2018-01-04 Out[facility] [id number] 00:00:00 00:00:00 2018-01-03 2018-01-03 Out[facility] [id number] 00:00:00 00:00:00 2017-12-31 2017-12-31 [facility] [id number] 08:32:41 09:56:24 [id number] 2017-12-31 2017-12-31 Outpatient [facility] [id number] 08:32:41 09:56:24 2017-12-31 2017-12-31 [facility] [id number] 00:00:00 00:00:00 [id number] 2017-12-27 2017-12-28 Emergency ER [facility] LEDBETTERTON [id number] 22:01:29 01:21:00 LORENA [id number] 2017-12-27 2017-12-28 Emergency [facility] [id number] 22:01:29 01:21:00 2017-12-27 2017-12-27 Emergency ER [facility] [id number] 21:50:00 21:50:00 [id number] 2017-12-14 2017-12-14 Emergency ER KATERYNA GAYTAN [id number] 00:15:58 03:47:00 [id number] 2017-12-14 2017-12-14 Emergency [facility] [id number] 00:15:58 03:47:00 2017-12-14 2017-12-14 Emergency [facility] [id number] 02:16:43 02:16:43 [id number] 2017-12-14 2017-12-14 Emergency ER [facility] [id number] 00:07:00 00:07:00 [id number] 2017-12-09 2017-12-09 Outpatient EL PROVIDER, [facility]RO [facility] [id number] 15:47:40 23:59:00 EXTERNAL [id number] 2017-12-09 2017-12-09 Outpatient [facility] [id number] 15:35:00 23:59:00 2017-12-09 2017-12-09 Outpatient [facility] [id number] 00:00:00 00:00:00 [id number] 2017-10-18 2017-10-18 Outpatient [facility] [id number] 00:00:00 00:00:00 2017-10-13 2017-10-13 Outpatient EL [facility] [id number] 10:54:19 23:59:00 [id number] 2017-10-13 2017-10-13 Outpatient [facility] [id number] 10:54:19 11:00:00 2017-10-13 2017-10-13 Outpatient [facility] [id number] 00:00:00 00:00:00 [id number] 2017-10-13 2017-10-13 Outpatient [facility] [id number] 00:00:00 00:00:00 2017-10-13 2017-10-13 Outpatient [facility] [id number] 00:00:00 00:00:00 2017-10-11 2017-10-11 Outpatient EL [facility] [id number] 15:09:20 16:13:19 [id number] 2017-10-11 2017-10-11 Outpatient [facility] [id number] 15:09:20 16:13:19 2017-10-11 2017-10-11 Outpatient EL [facility] [id number] 00:00:00 00:00:00 [id number] 2017-10-11 2017-10-11 Out[facility] [id number] 00:00:00 00:00:00 2017-10-06 2017-10-06 Emergency ER PEDRO AUGUSTE [id number] 19:13:37 22:07:00 FOX [id number] 2017-10-06 2017-10-06 Emergency [facility] [id number] 19:13:37 22:07:00 2017-10-06 2017-10-06 Emergency [facility] [id number] 20:12:39 20:12:39 [id number] 2017-10-06 2017-10-06 Emergency ER [facility]CH[facility] [id number] 19:06:00 19:06:00 [id number] 2017-10-04 2017-10-04 Outpatient [facility] [id number] 00:00:00 00:00:00 2017-09-30 2017-09-30 Emergency ER PEDRO GARCIA7 [id number] 16:15:40 17:08:00 JOSHUA [id number] 2017-09-30 2017-09-30 Emergency [facility] [id number] 16:15:40 17:08:00 2017-09-30 2017-09-30 Emergency ER [facility] [id number] 16:00:00 16:00:00 [id number] 2017-09-30 2017-09-30 Outpatient [facility] [id number] 00:00:00 00:00:00 2017-09-30 2017-09-30 Outpatient [facility] [id number] 00:00:00 00:00:00 2017-04-20 2017-04-20 Outpatient [facility] [id number] 10:50:17 11:22:07 [id number] 2017-04-20 2017-04-20 Outpatient [facility] [id number] 00:00:00 00:00:00 [id number] 2017-04-05 2017-04-05 Outpatient [facility] [id number] 08:51:47 09:28:43 [id number] 2017-04-05 2017-04-05 Outpatient [facility] [id number] 00:00:00 00:00:00 [id number] 2017-04-03 2017-04-04 Emergency ER FADIA [facility] [id number] 22:32:19 03:00:00 ALIX [id number] 2017-04-03 2017-04-04 Emergency [facility] [id number] 22:32:19 03:00:00 2017-04-04 2017-04-04 Emergency [facility] [id number] 01:36:50 01:36:50 [id number] 2017-04-03 2017-04-03 Emergency ER [facility] [id number] 22:30:00 22:30:00 [id number] 2017-03-10 2017-03-11 B ANNIE CAMPOS [facility] [id number] 06:56:00 09:00:00 CASSIE [id number] 2017-03-10 2017-03-11 Outpatient [facility] [id number] 06:56:00 09:00:00 2017-03-10 2017-03-10 X ANDRES [facility] [id number] 08:30:00 08:30:00 CASSIE [id number] 2017-03-10 2017-03-10 X ANDRES, [facility] [id number] 00:00:00 00:00:00 CASSIE [id number] 2017-03-09 2017-03-09 X [facility] [id number] 00:00:00 00:00:00 [id number] 2017-03-02 2017-03-02 Outpatient EL PEDRO LY [id number] 14:58:30 23:59:00 JOSELIN [id number] 2017-03-02 2017-03-02 Outpatient [facility] [id number] 14:58:30 23:59:00 2017-03-02 2017-03-02 Outpatient EL PEDRO LY [id number] 00:00:00 00:00:00 JOSELIN [id number] 2017-02-22 2017-02-22 [facility] [id number] 15:53:01 16:39:21 [id number] 2017-02-22 2017-02-22 [facility] [id number] 00:00:00 00:00:00 [id number] 2017-01-09 2017-01-10 Emergency ER LOW, [facility] [id number] 17:52:16 00:26:00 TAMMY [id number] 2017-01-09 2017-01-10 Emergency [facility] [id number] 17:52:16 00:26:00 2017-01-09 2017-01-09 [facility] [id number] 17:39:00 17:39:00 [id number] 2017-01-07 2017-01-07 X PEDRO CAMPOS [facility] [id number] 07:30:00 07:30:00 CASSIE [id number] 2017-01-07 2017-01-07 X PED[facility] CAMPOS [facility] [id number] 00:00:00 00:00:00 CASSIE [id number] 2017-01-04 2017-01-04 Outpatient [facility] [id number] 12:47:22 13:13:36 [id number] 2016-12-31 2016-12-31 Outpatient [facility] [id number] 00:00:00 00:00:00 [id number] 2016-12-28 2016-12-28 [facility] [id number] 00:00:00 00:00:00 [id number] 2016-12-28 2016-12-28 Outpatient EL [facility] [id number] 00:00:00 00:00:00 [id number] 2016-12-10 2016-12-10 Outpatient EL [facility] [id number] 00:00:00 00:00:00 [id number] 2016-12-07 2016-12-07 Emergency [facility] [id number] 08:24:25 23:59:00 [id number] 2016-12-07 2016-12-07 Emergency ER WILMER, [facility] [id number] 06:06:31 10:27:00 ALEXANDRA [id number] 2016-12-07 2016-12-07 Emergency [facility] [id number] 06:06:31 10:27:00 2016-12-07 2016-12-07 Emergency [facility] [id number] 05:52:00 05:52:00 [id number] 2016-11-13 2016-11-13 Outpatient EL [facility] [id number] 11:12:39 11:33:03 [id number] 2016-11-13 2016-11-13 Outpatient EL [facility] [id number] 00:00:00 00:00:00 [id number] 2016-10-13 2016-10-13 Emergency ER SAMIA [facility] [id number] 11:33:26 14:00:00 ROWAN [id number] 2016-10-13 2016-10-13 Emergency [facility] [id number] 11:33:26 14:00:00 2016-10-13 2016-10-13 Emergency [facility] [id number] 12:40:00 12:40:00 [id number] 2016-10-13 2016-10-13 Emergency ER [facility] [id number] 11:17:00 11:17:00 [id number] 2016-10-06 2016-10-06 Outpatient EL [facility] [id number] 08:51:12 10:01:28 [id number] 2016-10-06 2016-10-06 Outpatient EL [facility] [id number] 00:00:00 00:00:00 [id number] 2016-10-01 2016-10-01 Outpatient [facility] [id number] 07:04:03 23:59:00 2016-10-01 2016-10-01 Outpatient PEDRO BANSAL [id number] 07:04:03 07:04:03 BONIFACIO [id number] 2016-10-01 2016-10-01 Outpatient ANNIE TONG [facility] [id number] 00:00:00 00:00:00 MYA, BONIFACIO [id number] 2016-09-17 2016-09-17 Outpatient EL PEDRO CAMPOS [facility] [id number] 09:26:20 23:59:00 CASSIE [id number] 2016-09-17 2016-09-17 Emergency ER OLGA KENNEDY [facility] [id number] 14:20:10 18:41:00 [id number] 2016-09-17 2016-09-17 Emergency [facility] [id number] 15:13:17 15:13:17 [id number] 2016-09-17 2016-09-17 Emergency ER [facility] [id number] 12:23:00 12:23:00 [id number] 2016-09-17 2016-09-17 Outpatient PEDRO COLE [facility] [id number] 00:00:00 00:00:00 CASSIE [id number] 2016-09-15 2016-09-15 Outpatient EL [facility] [id number] 00:00:00 00:00:00 [id number] 2016-09-07 2016-09-07 Outpatient EL PED[facility]CH[facility] [id number] 11:42:11 12:20:41 [id number] 2016-09-07 2016-09-07 Outpatient EL P[facility]CH[facility] [id number] 00:00:00 00:00:00 [id number] 2016-09-02 2016-09-02 Outpatient EL PED[facility]CH[facility] [id number] 11:32:55 12:22:25 [id number] 2016-09-02 2016-09-02 Outpatient EL [facility] [id number] 00:00:00 00:00:00 [id number] 2016-09-01 2016-09-01 Outpatient [facility] [id number] 10:22:18 11:49:01 [id number] 2016-09-01 2016-09-01 Outpatient [facility] [id number] 00:00:00 00:00:00 [id number] 2016-08-20 2016-08-20 Outpatient EL ANDRES, [facility] [id number] 10:10:13 23:59:00 CASSIE [id number] 2016-08-20 2016-08-20 Outpatient [facility] [id number] 10:10:13 23:59:00 2016-08-20 2016-08-20 Outpatient EL [facility] [id number] 00:00:00 00:00:00 [id number] 2016-08-19 2016-08-19 Outpatient EL [facility] [id number] 13:33:50 15:02:35 [id number] 2016-08-19 2016-08-19 Outpatient EL [facility] [id number] 00:00:00 00:00:00 [id number] 2016-08-18 2016-08-18 Outpatient EL [facility] [id number] 08:43:28 09:53:26 [id number] 2016-08-18 2016-08-18 Outpatient EL [facility] [id number] 00:00:00 00:00:00 [id number] 2016-08-04 2016-08-13 Inpatient ER ABIMAEL, [facility] [id number] 17:26:31 09:43:00 ROBIN [id number] 2016-08-04 2016-08-13 Outpatient [facility] [id number] 17:26:31 09:43:00 2016-08-07 2016-08-07 Inpatient [facility] [id number] 12:37:39 23:59:00 [id number] 2016-08-06 2016-08-06 Outpatient [facility] [id number] 00:00:00 00:00:00 [id number] 2016-08-04 2016-08-04 Emergency [facility] [id number] 17:58:29 23:59:00 [id number] 2016-07-17 2016-07-17 S PEDRO LORENZ [id number] 10:17:00 14:40:00 KRZYSZTOF [id number] 2016-07-08 2016-07-08 Outpatient PEDRO LORENZ [id number] 12:35:07 23:59:00 KRZYSZTOF [id number] 2016-06-25 2016-06-25 Outpatient ANNIE [facility] [id number] 14:24:42 15:03:27 [id number] 2016-05-15 2016-05-15 Outpatient PEDRO BANSAL [id number] 16:58:56 23:59:00 BONIFACIO [id number] 2016-02-20 2016-02-20 [facility] [id number] 06:55:46 23:59:00 2016-02-20 2016-02-20 Outpatient [facility] [id number] 06:55:46 06:55:46 [id number] 2016-02-20 2016-02-20 Outpatient [facility] [id number] 00:00:00 00:00:00 [id number] 2015-12-26 2015-12-26 [facility] [id number] 06:53:31 23:59:00 2015-12-26 2015-12-26 Outpatient ANNIE VASQUEZ [facility] [id number] 06:53:31 06:53:31 [id number] 2015-12-26 2015-12-26 Outpatient [facility] [id number] 00:00:00 00:00:00 IAN [id number] 2015-03-27 2015-03-27 Outpatient EL [facility] [id number] 00:00:00 00:00:00 [id number] Immunizations Ordered Immunization Filled Immunization Date Status Commen ts Refusal Reason Name Name TdaP 2018-11-01 Completed 00:00:00 Influenza Vaccine Quad 2017-03-11 Completed (IIV4 PF) 6mo+ 00:00:00 injectable PNEUMOCOCCAL 2016-08-12 Completed POLYSACCHARIDE 23 00:00:00 Influenza Vaccine Quad 2011-01-06 Completed (IIV4 PF) 6mo+ 00:00:00 injectable Influenza Vaccine Quad 2010-01-14 Completed (IIV4 PF) 6mo+ 00:00:00 injectable PNEUMOCOCCAL 2010-01-14 Completed POLYSACCHARIDE 23 00:00:00 Payers Payer Name Policy Type Policy Number Effective Date Expiration D ate [place]ICA[place] [id number] 2016 00:00:00 [employer] [id number] 2016 00:00:00 03-08 00:00:00 Plan of Treatment Planned Activity Planned Date Details Comments Future Scheduled Test [code = ] Future Scheduled Test [code = ] Future Scheduled Test [code = ] Future Scheduled Test [code = ] Future Scheduled Test [code = ] Future Scheduled Test [code = ] Future Scheduled Test [code = ] Future Scheduled Test [code = ] Future Scheduled Test [code = ] Future Scheduled Test [code = ] Future Scheduled Test [code = ] Future Scheduled Test [code = ] Future Scheduled Test [code = ] Future Scheduled Test [code = ] Future Scheduled Test [code = ] Future Scheduled Test [code = ] Future Scheduled Test [code = ] Future Scheduled Test [code = ] Future Scheduled Test [code = ] Future Scheduled Test [code = ] Future Scheduled Test [code = ] Future Scheduled Test [code = ] Future Scheduled Test [code = ] Future Scheduled Test [code = ] Future Scheduled Test [code = ] Future Scheduled Test [code = ] Future Scheduled Test [code = ] Future Scheduled Test [code = ] Future Scheduled Test [code = ] Future Scheduled Test [code = ] Future Scheduled Test [code = ] Future Scheduled Test [code = ] Future Scheduled Test [code = ] Future Scheduled Test [code = ] Future Scheduled Test [code = ] Future Scheduled Test [code = ] Future Scheduled Test [code = ] Future Scheduled Test [code = ] Future Scheduled Test [code = ] Future Scheduled Test [code = ] Future Scheduled Test [code = ] Future Scheduled Test [code = ] Future Scheduled Test [code = ] Future Scheduled Test [code = ] Future Scheduled Test [code = ] Future Scheduled Test [code = ] Future Scheduled Test [code = ] Future Scheduled Test [code = ] Future Scheduled Test [code = ] Future Scheduled Test [code = ] Future Scheduled Test [code = ] Social History Social Habit Start Date Stop Date Comments History of tobacco use Tobacco smoking status [facility] 2018-11-01 00:00:00 2018-11-01 00:00 :00 Cigarettes smoked current (pack per 2018-11-01 00:00:00 00:00:00 day) - Reported Cigarette pack-years 2018-11-01 00:00:00 2018-11-01 00:00:00 Alcohol intake 2018-11-01 00:00:00 2018-11-01 00:00:00 Alcohol Comment 2017-10-11 00:00:00 2017-10-11 00:00:00 ASSERTION 2016-08-19 00:00:00 2016-08-19 00:00:00 Vital Signs Vital Name Observation Time Observation Value Comments Systolic blood pressure 2018-11-01 04:34:00 139 mm[Hg] Diastolic blood pressure 2018-11-01 04:34:00 97 mm[Hg] Heart rate 2018-11-01 04:34:00 98 /min Body temperature 2018-11-01 04:34:00 36.72 Irene Respiratory rate 2018-11-01 04:34:00 16 /min Oxygen saturation in Arterial blood by 2018-11-01 04:34:00 99 % Pulse oximetry Body height 2018-11-01 02:47:00 165.1 cm Body weight 2018-11-01 02:47:00 68.04 kg Systolic blood pressure 2018-09-16 21:32:00 136 mm[Hg] Diastolic blood pressure 2018-09-16 21:32:00 87 mm[Hg] Heart rate 2018-09-16 21:32:00 107 /min Respiratory rate 2018-09-16 21:32:00 18 /min Oxygen saturation in Arterial blood by 2018-09-16 21:32:00 97 % Pulse oximetry Body temperature 2018-09-16 19:13:00 37.17 Irene Body height 2018-09-16 19:13:00 165.1 cm Body weight 2018-09-16 19:13:00 70.217 kg SYSTOLIC BLOOD PRESSURE 2017-12-31 08:50:00 158 mm[Hg] DIASTOLIC BLOOD PRESSURE 2017-12-31 08:50:00 85 mm[Hg] HEART RATE 2017-12-31 08:50:00 75 /min HEIGHT 2017-12-31 08:50:00 165.1 cm WEIGHT 2017-12-31 08:50:00 72.984 kg BODY TEMPERATURE 2017-12-28 01:20:00 36.83 Irene SYSTOLIC BLOOD PRESSURE 2017-12-28 00:36:00 119 mm[Hg] DIASTOLIC BLOOD PRESSURE 2017-12-28 00:36:00 44 mm[Hg] RESPIRATORY RATE 2017-12-28 00:36:00 16 /min OXYGEN SATURATION 2017-12-28 00:36:00 96 % HEART RATE 2017-12-27 22:01:00 86 /min SYSTOLIC BLOOD PRESSURE 2017-12-14 03:31:00 136 mm[Hg] DIASTOLIC BLOOD PRESSURE 2017-12-14 03:31:00 89 mm[Hg] HEART RATE 2017-12-14 03:13:00 82 /min OXYGEN SATURATION 2017-12-14 02:56:00 95 % RESPIRATORY RATE 2017-12-14 02:47:00 16 /min BODY TEMPERATURE 2017-12-14 00:18:00 36.83 Irene HEIGHT 2017-12-14 00:18:00 165.1 cm WEIGHT 2017-12-14 00:18:00 74.844 kg SYSTOLIC BLOOD PRESSURE 2017-10-11 15:26:00 142 mm[Hg] DIASTOLIC BLOOD PRESSURE 2017-10-11 15:26:00 99 mm[Hg] HEART RATE 2017-10-11 15:26:00 87 /min RESPIRATORY RATE 2017-10-11 15:26:00 18 /min HEIGHT 2017-10-11 15:26:00 170.2 cm WEIGHT 2017-10-11 15:26:00 73.483 kg SYSTOLIC BLOOD PRESSURE 2017-10-06 21:53:00 145 mm[Hg] DIASTOLIC BLOOD PRESSURE 2017-10-06 21:53:00 100 mm[Hg] HEART RATE 2017-10-06 21:53:00 89 /min OXYGEN SATURATION 2017-10-06 21:53:00 98 % BODY TEMPERATURE 2017-10-06 19:11:00 36.39 Irene RESPIRATORY RATE 2017-10-06 19:11:00 17 /min HEIGHT 2017-10-06 19:11:00 165.1 cm WEIGHT 2017-10-06 19:11:00 73.936 kg SYSTOLIC BLOOD PRESSURE 2017-09-30 17:08:00 133 mm[Hg] DIASTOLIC BLOOD PRESSURE 2017-09-30 17:08:00 80 mm[Hg] HEART RATE 2017-09-30 17:08:00 74 /min RESPIRATORY RATE 2017-09-30 17:08:00 16 /min OXYGEN SATURATION 2017-09-30 17:08:00 96 % BODY TEMPERATURE 2017-09-30 16:09:00 36.94 Irene SYSTOLIC BLOOD PRESSURE 2017-04-04 02:47:00 158 mm[Hg] DIASTOLIC BLOOD PRESSURE 2017-04-04 02:47:00 90 mm[Hg] HEART RATE 2017-04-04 02:47:00 99 /min RESPIRATORY RATE 2017-04-04 02:47:00 20 /min OXYGEN SATURATION 2017-04-04 02:47:00 96 % BODY TEMPERATURE 2017-04-03 22:41:00 37 Irene HEIGHT 2017-04-03 22:41:00 165.1 cm WEIGHT 2017-04-03 22:41:00 83.915 kg SYSTOLIC BLOOD PRESSURE 2017-03-11 07:53:00 144 mm[Hg] DIASTOLIC BLOOD PRESSURE 2017-03-11 07:53:00 89 mm[Hg] HEART RATE 2017-03-11 07:53:00 89 /min BODY TEMPERATURE 2017-03-11 07:53:00 36.72 Irene RESPIRATORY RATE 2017-03-11 07:53:00 18 /min OXYGEN SATURATION 2017-03-11 07:53:00 97 % HEIGHT 2017-03-10 07:24:00 165.1 cm WEIGHT 2017-03-10 07:24:00 83.178 kg SYSTOLIC BLOOD PRESSURE 2017-01-10 00:13:00 117 mm[Hg] DIASTOLIC BLOOD PRESSURE 2017-01-10 00:13:00 67 mm[Hg] HEART RATE 2017-01-10 00:13:00 77 /min BODY TEMPERATURE 2017-01-10 00:13:00 36.83 Irene RESPIRATORY RATE 2017-01-10 00:13:00 15 /min OXYGEN SATURATION 2017-01-10 00:13:00 98 % HEIGHT 2017-01-09 17:58:00 165.1 cm WEIGHT 2017-01-09 17:58:00 82.555 kg SYSTOLIC BLOOD PRESSURE 2016-12-07 09:28:00 116 mm[Hg] DIASTOLIC BLOOD PRESSURE 2016-12-07 09:28:00 88 mm[Hg] HEART RATE 2016-12-07 09:28:00 87 /min RESPIRATORY RATE 2016-12-07 09:28:00 18 /min OXYGEN SATURATION 2016-12-07 09:28:00 98 % BODY TEMPERATURE 2016-12-07 06:04:00 37.17 Irene HEIGHT 2016-12-07 06:04:00 165.1 cm WEIGHT 2016-12-07 06:04:00 80.74 kg HEART RATE 2016-10-13 13:59:00 70 /min RESPIRATORY RATE 2016-10-13 13:59:00 18 /min OXYGEN SATURATION 2016-10-13 13:59:00 97 % SYSTOLIC BLOOD PRESSURE 2016-10-13 11:30:00 133 mm[Hg] DIASTOLIC BLOOD PRESSURE 2016-10-13 11:30:00 78 mm[Hg] BODY TEMPERATURE 2016-10-13 11:30:00 36.72 Irene HEIGHT 2016-10-13 11:30:00 165.1 cm WEIGHT 2016-10-13 11:30:00 83.6 kg OXYGEN SATURATION 2016-08-13 09:27:00 96 % SYSTOLIC BLOOD PRESSURE 2016-08-13 07:17:00 119 mm[Hg] DIASTOLIC BLOOD PRESSURE 2016-08-13 07:17:00 79 mm[Hg] HEART RATE 2016-08-13 07:17:00 95 /min BODY TEMPERATURE 2016-08-13 07:17:00 37.06 Irene RESPIRATORY RATE 2016-08-13 07:17:00 18 /min HEIGHT 2016-08-13 05:00:00 165.1 cm WEIGHT 2016-08-13 05:00:00 92.806 kg
[2020-01-22] MEDS ORDERED: VANCOMYCIN HCL 1,500 MG in DEXTROSE 5%-WATER 250 ML IV SCH (10:00)
[2020-01-22 11:44] VITALS: BP 142/78
--- NOTE | 2020-01-22 19:19 | PDOC DISCHARGE SUMMARY ---
Impression - Admit/DC Date/PCP Admission Date/Primary Care Provider: 01/19/20 08:19 Discharge Date: 01/22/20 - Discharge Diagnosis (1) Sepsis Is this a current diagnosis for this admission?: Yes (2) Cellulitis of right breast Is this a current diagnosis for this admission?: Yes (3) Methamphetamine abuse Is this a current diagnosis for this admission?: Yes (4) Tachycardia Is this a current diagnosis for this admission?: Yes (5) Obesity Is this a current diagnosis for this admission?: Yes (6) Polysubstance abuse Is this a current diagnosis for this admission?: Yes (7) Alcohol withdrawal delirium Is this a current diagnosis for this admission?: Yes (8) Metabolic encephalopathy Is this a current diagnosis for this admission?: Yes (9) Toxic encephalopathy Is this a current diagnosis for this admission?: Yes (10) Hypokalemia Is this a current diagnosis for this admission?: Yes - Assessment Summary: She continues on antibiotics for her cellulitis. There was some polysubstance effect from methamphetamine, but she is also very likely in alcohol withdrawal. She is on as needed Ativan. We ordered a daily banana bag for her. We continue to monitor her very closely. We are also replacing electrolytes as needed. She seems to be improving as she is not requiring as much Ativan as she was initially. Cultures remain negative. - Additional Information Resuscitation Status: Full Code Discharge Diet: Cardiac Discharge Activity: Activity As Tolerated Referrals: [facility], Glo Damian [Other] (Patient stated that she will like to make own appointment.) Prescriptions: Doxycycline Hyclate [Vibramycin 100 mg Tablet] 100 mg PO BID #20 tablet Home Medications: Acyclovir [Acyclovir 400 mg Tablet] 400 mg PO BID 01/19/20 Atorvastatin Calcium [Lipitor 20 mg Tablet] 20 mg PO QHS 01/19/20 Beclomethasone Dipropionate [Qvar Redihaler] 2 puff IH Q12 01/19/20 Buspirone HCl [Buspar 10 mg Tablet] 10 mg PO BID 01/19/20 Cyclobenzaprine HCl [Flexeril 10 mg Tablet] 10 mg PO Q8HP PRN 01/19/20 Furosemide [Lasix 20 mg Tablet] 20 mg PO DAILY 01/19/20 Linaclotide [Linzess 145 Mcg Capsule] 145 mcg PO DAILY 01/19/20 Metoprolol Tartrate [Lopressor 50 mg Tablet] 50 mg PO DAILY 01/19/20 Mirtazapine [Remeron] 30 mg PO QHS 01/19/20 Montelukast Sodium [Singulair 10 mg Tablet] 10 mg PO QPM 01/19/20 Nitroglycerin [Nitrostat 0.4 mg (1/150 Gr) Tabs 25/Bottle] 0.4 mg SL Q5MP PRN 01/19/20 Omeprazole 40 mg PO DAILY 01/19/20 Triamterene/Hydrochlorothiazid [Triamterene-Hctz 37.5-25 mg Tb] 1 tab PO DAILY 01/19/20 Doxycycline Hyclate [Vibramycin 100 mg Tablet] 100 mg PO BID #20 tablet 01/22/20 History of Present Illiness History of Present Illness: MARCIN TORO is a 49 year old female who presented to the ER early this morning. History is extremely limited because the patient is in no condition to give me any sort of a history whatsoever. Apparently she had fallen in the bathroom at home and had multiple scans in the ER that were negative. She was found to have what looks like a cellulitis associated with the right breast. Ultrasound was done and it was negative for abscess. She was febrile in the ER. She apparently had been doing methamphetamine. It showed up on her urine drug screen and she denied it first and later on admitted to doing it. I am told all this by the ER provider who was seeing her. By the time I got down to the ER to see her she was extremely restless and agitated and was not answering questions and whenever you try to examine her she would moan and groan and writhe around on the gurney. She got some fluids and several doses of Ativan to calm her down and was given a dose of vancomycin. Hospital Course Hospital Course: We found out from her sister that she also drinks 18-24 beers a day in addition to pills, cocaine, and methamphetamine. She went through what looks like alcohol withdrawal. She received CIWA protocol and vitamin supplementation. She was continued on IV antibiotics for her cellulitis during all of this. She got through all of it and her heart rate came down and she went through long stretches without requiring any Ativan. She went for about 12 hours since her last dose. We have decided to use a 10-day course of doxycycline at home for her cellulitis. She is allergic to Bactrim and said she broke out in hives with it previously. We wanted to give her something that has coverage for MRSA, and doxycycline in this area has about 90% MRSA coverage, so this is a reasonable alternative. She has a doctor in [facility] and was advised to follow-up within 1 week. Her labs and examination were reassuring and she was discharged in stable condition. Physical Exam Vital Signs: Temp Pulse Resp BP Pulse Ox 98.7 F 86 16 142/78 H 100 01/22/20 11:41 01/22/20 11:41 01/22/20 11:41 01/22/20 11:41 01/22/20 11:41 Intake & Output 01/21/20 01/22/20 01/23/20 06:59 06:59 06:59 Intake Total 1419 4588 Output Total 825 1050 Balance 594 3538 Weight 86.2 kg 91.6 kg General appearance: PRESENT: no acute distress, disheveled, obese Respiratory exam: PRESENT: clear to auscultation elysia, symmetrical, unlabored. ABSENT: accessory muscle use, chest wall tenderness, crackles, prolonged expiratory phas, rhonchi, tachypnea, wheezes Cardiovascular exam: PRESENT: +S1, +S2, RRR Pulses: PRESENT: normal carotid pulses Vascular exam: PRESENT: normal capillary refill GI/Abdominal exam: PRESENT: normal bowel sounds, soft. ABSENT: distended, guarding, rebound, tenderness Extremities exam: ABSENT: clubbing, pedal edema Musculoskeletal exam: PRESENT: normal inspection. ABSENT: deformity Neurological exam: PRESENT: Awake, oriented to person, oriented to place Skin exam: PRESENT: dry, warm Results Laboratory Results: WBC 6.7 10^3/uL (4.0-10.5) 01/22/20 06:57 RBC 2.90 10^6/uL (3.72-5.28) L 01/22/20 06:57 Hgb 9.8 g/dL (12.0-15.5) L 01/22/20 06:57 Hct 28.7 % (36.0-47.0) L 01/22/20 06:57 MCV 99 fl (80-97) H 01/22/20 06:57 MCH 33.9 pg (27.0-33.4) H 01/22/20 06:57 MCHC 34.1 g/dL (32.0-36.0) 01/22/20 06:57 RDW 14.5 % (11.5-14.0) H 01/22/20 06:57 Plt Count 257 10^3/uL (150-450) 01/22/20 06:57 Lymph % (Auto) Not Reportable 01/19/20 02:41 Stanley % (Auto) Not Reportable 01/19/20 02:41 Eos % (Auto) Not Reportable 01/19/20 02:41 Baso % (Auto) Not Reportable 01/19/20 02:41 Absolute Neuts (auto) Not Reportable 01/19/20 02:41 Absolute Lymphs (auto) Not Reportable 01/19/20 02:41 Absolute Monos (auto) Not Reportable 01/19/20 02:41 Absolute Eos (auto) Not Reportable 01/19/20 02:41 Absolute Basos (auto) Not Reportable 01/19/20 02:41 Total Counted 100 01/19/20 02:41 Seg Neutrophils % Not Reportable 01/19/20 02:41 Seg Neuts % (Manual) 90 % (42-78) H 01/19/20 02:41 Lymphocytes % (Manual) 5 % (13-45) L 01/19/20 02:41 Monocytes % (Manual) 4 % (3-13) 01/19/20 02:41 Eosinophils % (Manual) 1 % (0-6) 01/19/20 02:41 Basophils % (Manual) 0 % (0-2) 01/19/20 02:41 Abs Neuts (Manual) 13.7 10^3/uL (1.7-8.2) H 01/19/20 02:41 Abs Lymphs (Manual) 0.8 10^3/uL (0.5-4.7) 01/19/20 02:41 Abs Monocytes (Manual) 0.6 10^3/uL (0.1-1.4) 01/19/20 02:41 Absolute Eos (Manual) 0.2 10^3/uL (0.0-0.6) 01/19/20 02:41 Abs Basophils (Manual) 0.0 10^3/uL (0.0-0.2) 01/19/20 02:41 Platelet Comment ADEQUATE 01/19/20 02:41 Polychromasia SLIGHT 01/19/20 02:41 Poikilocytosis SLIGHT 01/19/20 02:41 Anisocytosis SLIGHT 01/19/20 02:41 Stomatocytes SLIGHT 01/19/20 02:41 Sodium 137.3 mmol/L (137-145) 01/22/20 06:57 Potassium 3.6 mmol/L (3.6-5.0) 01/22/20 06:57 Chloride 107 mmol/L (98-107) 01/22/20 06:57 Carbon Dioxide 20 mmol/L (22-30) L 01/22/20 06:57 Anion Gap 10 (5-19) 01/22/20 06:57 BUN 5 mg/dL (7-20) L 01/22/20 06:57 Creatinine 0.37 mg/dL (0.52-1.25) L 01/22/20 06:57 Est GFR ( Amer) > 60 (>60) 01/22/20 06:57 Est GFR (MDRD) Non-Af > 60 (>60) 01/22/20 06:57 Glucose 111 mg/dL (75-110) H 01/22/20 06:57 Lactic Acid 0.9 mmol/L (0.7-2.1) 01/19/20 02:41 Calcium 8.2 mg/dL (8.4-10.2) L 01/22/20 06:57 Total Bilirubin 1.0 mg/dL (0.2-1.3) 01/19/20 02:41 Direct Bilirubin 0.4 mg/dL (0.0-0.4) 01/19/20 02:41 Neonat Total Bilirubin Not Reportable 01/19/20 02:41 Neonat Direct Bilirubin Not Reportable 01/19/20 02:41 Neonat Indirect Bili Not Reportable 01/19/20 02:41 AST 64 U/L (14-36) H 01/19/20 02:41 ALT 51 U/L (<35) H 01/19/20 02:41 Alkaline Phosphatase 134 U/L (38-126) H 01/19/20 02:41 Creatine Kinase 789 U/L (30-135) H 01/19/20 02:41 Total Protein 7.6 g/dL (6.3-8.2) 01/19/20 02:41 Albumin 4.6 g/dL (3.5-5.0) 01/19/20 02:41 Serum HCG, Qual NEGATIVE (NEGATIVE) 01/19/20 02:41 Urine Color N[place]NAEL 01/19/20 02:41 Urine Appearance SLIGHTLY-CLOUDY 01/19/20 02:41 Urine pH 5.0 (5.0-9.0) 01/19/20 02:41 Ur Specific [place] 1.027 01/19/20 02:41 Urine Protein 100 mg/dL (NEGATIVE) H 01/19/20 02:41 Urine Glucose (UA) NEGATIVE mg/dL (NEGATIVE) 01/19/20 02:41 Urine Ketones 20 mg/dL (NEGATIVE) H 01/19/20 02:41 Urine Blood SMALL (NEGATIVE) H 01/19/20 02:41 Urine Nitrite NEGATIVE (NEGATIVE) 01/19/20 02:41 Urine Bilirubin NEGATIVE (NEGATIVE) 01/19/20 02:41 Urine Urobilinogen 4.0 mg/dL (<2.0) H 01/19/20 02:41 Ur Leukocyte Esterase TRACE (NEGATIVE) H 01/19/20 02:41 Urine WBC (Auto) 19 /HPF 01/19/20 02:41 Urine RBC (Auto) 6 /HPF 01/19/20 02:41 U Hyaline Cast (Auto) 2 /LPF 01/19/20 02:41 Urine Bacteria (Auto) TRACE /HPF 01/19/20 02:41 Squamous Epi Cells Auto 1 /HPF 01/19/20 02:41 Urine Mucus (Auto) OCC /LPF 01/19/20 02:41 Urine Ascorbic Acid NEGATIVE (NEGATIVE) 01/19/20 02:41 Time Trough Drawn 2120 01/21/20 21:20 Vancomycin Trough 5.2 ug/mL (5.0-20.0) 01/21/20 21:20 Urine Opiates Screen NEGATIVE 01/19/20 02:41 Urine Methadone Screen NEGATIVE 01/19/20 02:41 Ur Barbiturates Screen NEGATIVE 01/19/20 02:41 Ur Phencyclidine Scrn NEGATIVE 01/19/20 02:41 Ur Amphetamines Screen 01/19/20 02:41 U Benzodiazepines Scrn NEGATIVE 01/19/20 02:41 Urine Cocaine Screen NEGATIVE 01/19/20 02:41 U Marijuana (THC) Screen UNCONFIRMED POSITIVE 01/19/20 02:41 Serum Alcohol < 10 mg/dL (NONE DETECTED) 01/19/20 02:41 Impressions: Cervical Spine CT 01/19/20 02:09 IMPRESSION: 1. No acute fracture or subluxation of the cervical spine. Mild motion artifact. If the patient continues to have pain follow-up imaging may be helpful. This exam was performed according to our departmental dose-optimization program, which includes automated exposure control, adjustment of the mA and/or kV according to patient size and/or use of iterative reconstruction technique. Head CT 01/19/20 02:09 IMPRESSION: 1. No acute intracranial abnormality identified. This exam was performed according to our departmental dose-optimization program, which includes automated exposure control, adjustment of the mA and/or kV according to patient size and/or use of iterative reconstruction technique. Breast Ultrasound 01/19/20 02:10 IMPRESSION: There is a morphologically normal-appearing lymph node at the area of concern. No focal fluid collection is seen. BI-RADS 0: Needs additional imaging The patient should return for diagnostic mammography and focused right breast ultrasound on an outpatient basis to better assess these areas. Chest X-Ray 01/19/20 05:50 IMPRESSION: 1. No acute pulmonary process identified. Low lung volumes. Plan Time Spent: Greater than 30 Minutes Stroke Is this a Stroke Patient?: No Acute Heart Failure Is this a Heart Failure Patient?: No
== END 2020-01-22 12:33 | disposition home or self-care (01) | DRG 871 ==
LOC: ER 23:05 → EH 01-19 08:19 → 3S 01-19 12:09
PROVIDERS: ADMIT Family Medicine; ATTEND Family Medicine
DX: A41.9 Sepsis, unspecified organism (principal); G93.41 Metabolic encephalopathy; G92 Toxic encephalopathy; F10.231 Alcohol dependence with withdrawal delirium; N61.0 Mastitis without abscess; F15.10 Other stimulant abuse, uncomplicated; E66.9 Obesity, unspecified; F19.10 Other psychoactive substance abuse, uncomplicated; E87.6 Hypokalemia; E78.5 Hyperlipidemia, unspecified; I10 Essential (primary) hypertension; J45.909 Unspecified asthma, uncomplicated; F17.200 Nicotine dependence, unspecified, uncomplicated; F12.10 Cannabis abuse, uncomplicated; W19.XXXA Unspecified fall, initial encounter; Z79.899 Other long term (current) drug therapy; Z88.1 Allergy status to other antibiotic agents; Z88.3 Allergy status to other anti-infective agents; Z88.2 Allergy status to sulfonamides; Z68.30 Body mass index [BMI] 30.0-30.9, adult
CPT/HCPCS: 36415; 70450; 71045; 72125; 76642; 80048; 80053; 80202; 80307; 81001; 82550; 83605; 84703; 85025; 85027; 87040; 93005; 93010; 94640; 96361; 96365; 96366; 96372; 96375; 96376; 99285; J0696; J1630; J2060; J3370; J3411; J3475; J3480; J3490; J7030; J7060; J7613

== ENCOUNTER 2020-01-26 00:38 | Emergency (ER) | payer SELFPAY ==
[2020-01-26] MEDS ORDERED: LIDOCAINE 1% INJ-PF (10 MG/ML) 30 ML SDV INJ ONE (01:12)
--- NOTE | 2020-01-26 01:15 | ER Document Report ---
ED Medical Screen (RME) - General Chief Complaint: Abscess Stated Complaint: ABSCESS ON ARMPIT Time Seen by Provider: 01/26/20 01:12 Mode of Arrival: Ambulatory Information source: Patient Notes: Patient is a 49-year-old female who just got out of the hospital for cellulitis and sepSIS. Cellulitis under her right arm seems to be getting worse. Now she feels like she has abscess forming in the middle of her right axilla. No acute fever. She does have history of drug abuse General exam nontoxic Derm fluctuant abscess mid right axilla with cellulitis I have greeted and performed a rapid initial assessment of this patient. A comprehensive ED assessment and evaluation of the patient, analysis of test results and completion of the medical decision making process will be conducted by additional ED providers. - Related Data Allergies/Adverse Reactions: levofloxacin [From Levaquin] Allergy (Verified 08/03/19 17:58) sulfamethoxazole [From Bactrim] Allergy (Verified 08/03/19 17:58) trimethoprim [From Bactrim] Allergy (Verified 08/03/19 17:58) Past Medical History - Past Medical History Cardiac Medical History: Reports: Hx Hypercholesterolemia, Hx Hypertension Pulmonary Medical History: Reports: Hx Asthma Psychiatric Medical History: Denies: Hx Depression - unknown Past Surgical History: Reports: Hx Section, Hx Hysterectomy, Hx Tonsillectomy Physical Exam - Vital signs Vitals: Temp Pulse Resp BP Pulse Ox 98.0 F 106 H 18 150/91 H 98 01/26/20 00:47 01/26/20 00:47 01/26/20 00:47 01/26/20 00:47 01/26/20 00:47 Course - Vital Signs Vital signs: Temp Pulse Resp BP Pulse Ox 98.0 F 106 H 18 150/91 H 98 01/26/20 00:47 01/26/20 00:47 01/26/20 00:47 01/26/20 00:47 01/26/20 00:47
[2020-01-26 02:13] LABS: ALBUMIN 3.9 g/dL (3.5-5.0); ALKALINE PHOSPHATASE 118 U/L (38-126); ANION GAP 12 (5-19); ASPARTATE AMINO TRANSFERASE 45 U/L (14-36); BILIRUBIN,DIRECT 0.4 mg/dL (0.0-0.4); BILIRUBIN,TOTAL 0.4 mg/dL (0.2-1.3); BLOOD UREA NITROGEN 7 mg/dL (7-20); CALCIUM 9.9 mg/dL (8.4-10.2); CARBON DIOXIDE 26 mmol/L (22-30); CHLORIDE 103 mmol/L (98-107); GLUCOSE 105 mg/dL (75-110); POTASSIUM 4.3 mmol/L (3.6-5.0); TOTAL PROTEIN 6.9 g/dL (6.3-8.2)
[2020-01-26 02:36] LABS: HEMOGLOBIN 11.4 g/dL (12.0-15.5); MEAN CORPUSCULAR HEMOGLOBIN 33.3 pg (27.0-33.4); MEAN CORPUSCULAR HGB CONC 34.4 g/dL (32.0-36.0); MEAN CORPUSCULAR VOLUME 97 fl (80-97); PLATELET COUNT 556 10^3/uL (150-450); RED BLOOD COUNT 3.41 10^6/uL (3.72-5.28); RED CELL DISTRIBUTION WIDTH 14.4 % (11.5-14.0); WHITE BLOOD COUNT 9.4 10^3/uL (4.0-10.5)
[2020-01-26 02:38] LABS: ABSOLUTE LYMPHOCYTES# (MANUAL) 1.1 10^3/uL (0.5-4.7); ABSOLUTE MONOCYTES # (MANUAL) 0.5 10^3/uL (0.1-1.4); BAND NEUTROPHILS % (MANUAL) 2 % (3-5); BASOPHILS % (MANUAL) 0 % (0-2); EOSINOPHILS % (MANUAL) 1 % (0-6); LYMPHOCYTES % (MANUAL) 12 % (13-45); MONOCYTES % (MANUAL) 5 % (3-13); SEGMENTED NEUTROPHILS % (MAN) 80 % (42-78); TOTAL CELLS COUNTED 100
[2020-01-26 02:40] LABS: PLATELET COMMENT INCREASED; POLYCHROMASIA SLIGHT; SCHISTOCYTES SLIGHT; TEAR DROP CELLS SLIGHT; TOXIC GRANULATION 1+
[2020-01-26] MEDS ORDERED: KETOROLAC TROMETHAMINE 60 MG/2 ML SDV IM ONE (06:37)
--- NOTE | 2020-01-26 06:37 | ER Document Report ---
ED General - General Chief Complaint: Abscess Stated Complaint: ABSCESS ON ARMPIT Time Seen by Provider: 01/26/20 01:12 Primary Care Provider: HAYDEN MILIAN MD [ACTIVE STAFF] - Follow up in 3-5 days Mode of Arrival: Ambulatory Notes: 49-year-old female with history of meth abuse usually smokes it, no needle use, and alcohol abuse status post 4-day admission for sepsis and right upper chest /breast cellulitis with an ultrasound showing only a lymph node presents with ongoing swelling and pain at that site. She was discharged home and the redness got better now she has a tiny "head" on the right breast lump. She says that the firmness and lump has not changed nor has she had a fever nor she used any substances other than alcohol since discharge. - Related Data Allergies/Adverse Reactions: levofloxacin [From Levaquin] Allergy (Verified 08/03/19 17:58) sulfamethoxazole [From Bactrim] Allergy (Verified 08/03/19 17:58) trimethoprim [From Bactrim] Allergy (Verified 08/03/19 17:58) Past Medical History - General Information source: Patient - Social History Smoking Status: Unknown if Ever Smoked Frequency of alcohol use: Heavy Drug Abuse: Methamphetamine Family History: None Patient has homicidal ideation: No - Past Medical History Cardiac Medical History: Reports: Hx Hypercholesterolemia, Hx Hypertension Pulmonary Medical History: Reports: Hx Asthma Psychiatric Medical History: Denies: Hx Depression - unknown Past Surgical History: Reports: Hx Section, Hx Hysterectomy, Hx Tonsillectomy Review of Systems - Review of Systems Notes: REVIEW OF SYSTEMS GEN: Denies fever, chills, weight loss ENT: Denies sore throat, nasal discharge, ear pain EYES: Denies blurry vision, eye pain, discharge CV: Chest wall/breast pain RESP: Denies cough, shortness of breath, wheezing GI: Denies abdominal pain, nausea, vomiting, diarrhea MSK: Denies joint pain/swelling, edema, SKIN: Denies rash, skin lesions LYMPH: Denies swollen glands/lymph nodes NEURO: Denies headache, focal weakness or numbness, dizziness PSYCH: Denies depression, suicidal or homicidal ideation PHYSICAL EXAMINATION General: No acute distress, well-nourished Head: Atraumatic, normocephalic ENT: Mouth normal, oropharynx moist, no exudates or tonsillar enlargement Eyes: Conjunctiva normal, pupils equal, lids normal Neck: No JVD, supple, no guarding CVS: Under right breast tail versus upper chest wall pectoral area, not fluctuant, quite firm, minimal erythema Resp: No resp distress, equal and normal breath sounds bilaterally GI: Nondistended, soft, no tenderness to palpation, no rebound or guarding Ext: No deformities, no edema, normal range of motion in upper and lower ext Back: No CVA or midline TTP Skin: No rash, warm Lymphatic: Jose right axillar lymphadenopathy Neuro: Awake, alert. Face symmetric. GCS 15. Physical Exam - Vital signs Vitals: Temp Pulse Resp BP Pulse Ox 98.0 F 106 H 18 150/91 H 98 01/26/20 00:47 01/26/20 00:47 01/26/20 00:47 01/26/20 00:47 01/26/20 00:47 Course - Re-evaluation Re-evalutation: 01/26/20 07:03 Right upper chest wall/breast tail/axillary swelling which could be an enlarged lymph node, breast cancer, malignant lymph node necrotic lymph node lymphadenitis or soft tissue abscess She has no white count today, is not using needles and has mild alcohol with drawal Was given IM Toradol and Ativan while at triage. I have ordered a breast ultrasound will consult surgery. I suspect this may be developing into a deeper space abscess which is not amenable to ED drainage or may reflect the onset of malignancy 01/26/20 07:53 Ultrasound today looks like it shows several areas of abscess -consulted surgery Dr. Milian will come see the patient but requested a CT chest 01/26/20 09:35 Discussed with Jagdish at bedside. Agrees without CT and recommends I&D in the emergency department with sedation. I am comfortable doing this. Uneventful dressed given prescription for pain meds and antibiotics. Post sedation exam normal stable for discharge - Vital Signs Vital signs: Temp Pulse Resp BP Pulse Ox 97.9 F 109 H 17 182/108 H 100 01/26/20 05:05 01/26/20 08:46 01/26/20 08:51 01/26/20 08:51 01/26/20 08:51 - Laboratory Result Diagrams: 01/26/20 01:38 01/26/20 01:38 Laboratory results interpreted by me: 01/26/20 01/26/20 01:38 01:38 RBC 3.41 L Hgb 11.4 L Hct 33.0 L RDW 14.4 H Plt Count 556 H Seg Neuts % (Manual) 80 H Band Neutrophils % 2 L Lymphocytes % (Manual) 12 L AST 45 H ALT 41 H Procedures - Conscious Sedation Conscious sedation Time started: 08:55 Time completed: 09:15 Consent obtained: Yes Indication: Painful procedure Last meal: Granola bar 3 hours ago, no food for 6 hours before that Prior complications: Other - None Normal healthy pt.: P1. - ASA Classification Airway Evaluation: Normal anatomy, Other Mallampati Classification: Class 1 Used during procedure: Suction available, IV access obtained, Pulse ox on pt., business technology analyst on pt. Medications administered: Ketamine - 100 mg Reversal agents: None I personally performed/intraservice time: Sedation, Procedure, 31-45 min Complications: No - Incision and Drainage Right Upper Chest Type: Complex Anesthetic type: 1% Lidocaine w/epi mL's of anesthetic: 10 Blade size: 11 I&D procedure: Betadine prep applied Incision Method: Incision made by scalpel - Loculations were broken up with hemostats, suction was used, just short of 75 cc of pus and blood were drained Discharge - Discharge Clinical Impression: Cutaneous abscess of chest wall Condition: Good Disposition: HOME, SELF-CARE Instructions: Abscess ([facility]), Post Incision and Drainage, Post Sedation Instructions ([facility]), Trimethoprim-Sulfa ([facility]) Prescriptions: Oxycodone HCl/Acetaminophen [Percocet 5-325 mg Tablet] 1 tab PO Q4HP PRN #7 tab PRN Reason: Doxycycline Hyclate 100 mg PO BID #10 tablet.dr Referrals: HAYDEN MILIAN MD [ACTIVE STAFF] - Follow up in 3-5 days
[2020-01-26] MEDS ORDERED: LORAZEPAM 1 MG TABLET PO ONE (06:40)
[2020-01-26] MEDS ORDERED: LIDOCAINE 2%/EPINEPHRINE INJ 20 ML VIAL INJ ONE (08:02)
[2020-01-26] MEDS ORDERED: KETAMINE HCL INJ 500 MG/10 ML VIAL IV ONE (08:02)
[2020-01-26] MEDS ORDERED: OXYCODONE-ACETAMINOPHEN 5-325 MG TABLET PO ONE (09:35)
[2020-01-26 09:56] VITALS: BP 132/82
--- NOTE | 2020-01-26 10:54 | RADIOLOGY REPORT (SQ) ---
EXAM DESCRIPTION: U/S BREAST UNILATERAL LIMITED IMAGES COMPLETED DATE/TIME: 01/26/2020 7:40 am REASON FOR STUDY: Soft tissue ABSCESS COMPARISON: 01/19/2020 TECHNIQUE: Dynamic and static grayscale images acquired of the localized site of clinical concern an d recorded on PACS. Additional selected color Doppler and spectral images recorded. SITE OF CONCERN: Right axilla LIMITATIONS: None. FINDINGS: SKIN AND SUBCUTANEOUS TISSUES: Re- demonstration of a 2.2 x 0.7 x 1.7 cm normal-morphology axillary lymph node. Diffuse edema is demonstrated. There are 2 heterogeneous ill-defined hypoecho ic foci with posterior acoustic enhancement. VASCULAR: No increased or decreased vascularity. No occlusions. OTHER: No other significant finding. IMPRESSION: Reactive appearing axillary lymph node. Interval development of 2 phlegmonous collectio ns without discrete/defined abscess. TECHNICAL DOCUMENTATION: JOB ID: [id number] 2010 [employer]- All Rights Reserved Reading location - IP/workstation name: [email or web address]
== END 2020-01-26 10:04 | disposition home or self-care (01) ==
LOC: ER 00:38
DX: L02.213 Cutaneous abscess of chest wall (principal); F15.10 Other stimulant abuse, uncomplicated; F10.239 Alcohol dependence with withdrawal, unspecified; I10 Essential (primary) hypertension; J45.909 Unspecified asthma, uncomplicated; Z88.1 Allergy status to other antibiotic agents
CPT/HCPCS: 99285; 96372; 99152; 36415; 83605; 85025; 80053; 76642; 10060; J1885; J3490 ×2

== ENCOUNTER 2020-01-28 23:38 | Emergency (ER) | payer SELFPAY ==
--- NOTE | 2020-01-29 01:31 | ER Document Report ---
ED Medical Screen (RME) - General Chief Complaint: Abscess Stated Complaint: ABSCESS OF ARM Time Seen by Provider: 01/29/20 01:19 Mode of Arrival: Ambulatory Information source: Patient Notes: HPI; 49-year-old female poor historian presents to the emergency room complaining of persistent drainage to her right axillary region. Patient thought she had been here 8 days ago and had the area drained in the OR. Patient states she has changed the dressing but that the packing is still in place. In reviewing patient's previous visit she was here 2 days ago and had the area opened and drained in the ER under conscious sedation with Dr. López ED physician. Patient states she was discharged home on doxycycline which she is been taking as prescribed. Patient states the pain is gotten worse and the drainage is worse tonight. She denies any fevers. Patient does have a history of alcohol abuse of at least a 12 pack daily. States she has been trying to decrease her alcohol and only had 2 beers today but is complaining of severe shakes tonight. PE: Alert and oriented x3. Lungs: Clear to auscultation without rales, rhonchi, wheezes. Heart tachycardic without murmurs, rubs, gallops. Unable to assessed wound in triage. Patient is extremely shaky in triage. I have greeted and performed a rapid initial assessment of this patient. A comprehensive ED assessment and evaluation of the patient, analysis of test results and completion of the medical decision making process will be conducted by additional ED providers. I have specifically instructed the patient or family members with the patient to immediately return to any nursing staff should anything change in the patient's condition or with their chief complaint. TRAVEL OUTSIDE OF THE [place] IN LAST 30 DAYS: No - Related Data Allergies/Adverse Reactions: levofloxacin [From Levaquin] Allergy (Verified 08/03/19 17:58) sulfamethoxazole [From Bactrim] Allergy (Verified 08/03/19 17:58) trimethoprim [From Bactrim] Allergy (Verified 08/03/19 17:58) Past Medical History - Past Medical History Cardiac Medical History: Reports: Hx Hypercholesterolemia, Hx Hypertension Pulmonary Medical History: Reports: Hx Asthma Psychiatric Medical History: Denies: Hx Depression - unknown Past Surgical History: Reports: Hx Section, Hx Hysterectomy, Hx Tonsillectomy Physical Exam - Vital signs Vitals: Temp Pulse Resp BP Pulse Ox 98.7 F 108 H 18 137/84 H 96 01/29/20 00:17 01/29/20 00:17 01/29/20 00:17 01/29/20 00:17 01/29/20 00:17 Course - Vital Signs Vital signs: Temp Pulse Resp BP Pulse Ox 98.7 F 108 H 18 137/84 H 96 01/29/20 00:17 01/29/20 00:17 01/29/20 00:17 01/29/20 00:17 01/29/20 00:17
[2020-01-29 02:00] LABS: APPEARANCE,URINE CLEAR; BILIRUBIN,URINE NEGATIVE (NEGATIVE); COLOR,URINE COLORLESS; GLUCOSE, URINE NEGATIVE (NEGATIVE); KETONES,URINE NEGATIVE (NEGATIVE); LEUKOCYTE ESTERASE,URINE NEGATIVE (NEGATIVE); NITRITE,URINE NEGATIVE (NEGATIVE); PROTEIN,URINE NEGATIVE (NEGATIVE); URINE SPECIFIC GRAVITY 1.002; UROBILINOGEN,URINE NEGATIVE mg/dL (<2.0)
[2020-01-29 02:18] LABS: URINE AMPHETAMINES SCREEN NEGATIVE; URINE BARBITURATES SCREEN NEGATIVE; URINE BENZODIAZEPINES SCREEN NEGATIVE; URINE COCAINE SCREEN NEGATIVE; URINE MARIJUANA (THC) SCREEN NEGATIVE; URINE METHADONE SCREEN NEGATIVE; URINE PHENCYCLIDINE SCREEN NEGATIVE
[2020-01-29] MEDS ORDERED: NORMAL SALINE 1000 ML 1,000 ML IV ONE (02:52)
[2020-01-29] MEDS ORDERED: LORAZEPAM INJ 2 MG/1 ML VIAL IV ONE (02:52)
[2020-01-29] MEDS ORDERED: FOLIC ACID 1 MG TABLET PO ONE (02:53)
[2020-01-29] MEDS ORDERED: THIAMINE HCL 100 MG TABLET PO ONE (02:55)
[2020-01-29 03:02] LABS: ABSOLUTE BASOPHILS # (AUTO) 0.1 10^3/uL (0.0-0.2); ABSOLUTE EOSINOPHILS # (AUTO) 0.1 10^3/uL (0.0-0.6); ABSOLUTE LYMPHOCYTES (AUTO) 1.8 10^3/uL (0.5-4.7); ABSOLUTE MONOCYTES (AUTO) 0.5 10^3/uL (0.1-1.4); ABSOLUTE NEUT (AUTO) 7.1 10^3/uL (1.7-8.2); BASOPHILS % (AUTO) 1.5 % (0-2); EOSINOPHILS % (AUTO) 1.2 % (0-6); HEMATOCRIT 30.8 % (36.0-47.0); HEMOGLOBIN 10.5 g/dL (12.0-15.5); LYMPHOCYTES % (AUTO) 18.7 % (13-45); MEAN CORPUSCULAR HEMOGLOBIN 33.3 pg (27.0-33.4); MEAN CORPUSCULAR HGB CONC 34.1 g/dL (32.0-36.0); MEAN CORPUSCULAR VOLUME 98 fl (80-97); MONOCYTES % (AUTO) 5.5 % (3-13); PLATELET COUNT 536 10^3/uL (150-450); RED BLOOD COUNT 3.15 10^6/uL (3.72-5.28); RED CELL DISTRIBUTION WIDTH 14.8 % (11.5-14.0); SEGMENTED NEUTROPHILS % (AUTO) 73.1 % (42-78); TOTAL CELLS COUNTED % (AUTO) 100 %; WHITE BLOOD COUNT 9.7 10^3/uL (4.0-10.5)
[2020-01-29 03:19] LABS: ALBUMIN 3.6 g/dL (3.5-5.0); ALKALINE PHOSPHATASE 129 U/L (38-126); ANION GAP 9 (5-19); ASPARTATE AMINO TRANSFERASE 38 U/L (14-36); BILIRUBIN,DIRECT 0.4 mg/dL (0.0-0.4); BILIRUBIN,TOTAL 0.4 mg/dL (0.2-1.3); BLOOD UREA NITROGEN 12 mg/dL (7-20); CALCIUM 9.2 mg/dL (8.4-10.2); CARBON DIOXIDE 26 mmol/L (22-30); CHLORIDE 103 mmol/L (98-107); GLUCOSE 123 mg/dL (75-110); TOTAL PROTEIN 6.5 g/dL (6.3-8.2)
[2020-01-29 03:21] LABS: ALCOHOL < 10 mg/dL (NONE DETECTED)
[2020-01-29] MEDS ORDERED: CLINDAMYCIN 900 MG/D5W RTU 900 MG/50 ML RTUPB IV ONE (03:45)
--- NOTE | 2020-01-29 03:57 | ER Document Report ---
ED General - General Chief Complaint: Wound Recheck Stated Complaint: ABSCESS OF ARM Time Seen by Provider: 01/29/20 01:19 Mode of Arrival: Ambulatory Information source: Patient Notes: Patient is a 49-year-old female who was here 2 days ago for an abscess to her right chest wall/axilla. She had an incision and drainage done in the emergency department. She was sent home on doxycycline. She is coming in tonight because she does not know what to do with the wound. Complaining of pain. No fevers or chills. No nausea or vomiting. Not having any trouble taking her antibiotics. TRAVEL OUTSIDE OF THE [place] IN LAST 30 DAYS: No - Related Data Allergies/Adverse Reactions: levofloxacin [From Levaquin] Allergy (Verified 08/03/19 17:58) sulfamethoxazole [From Bactrim] Allergy (Verified 08/03/19 17:58) trimethoprim [From Bactrim] Allergy (Verified 08/03/19 17:58) Home Medications: docyccycline Past Medical History - General Information source: Patient - Social History Smoking Status: Current Every Day Smoker Family History: None - Past Medical History Cardiac Medical History: Reports: Hx Hypercholesterolemia, Hx Hypertension Pulmonary Medical History: Reports: Hx Asthma Psychiatric Medical History: Denies: Hx Depression - unknown Past Surgical History: Reports: Hx Section, Hx Hysterectomy, Hx Tonsillectomy Review of Systems - Review of Systems Notes: General: Well-developed, well-nourished. In no acute distress. Non-toxic appearing. Cardiac: Well-perfused. Regular rate and rhythm. No murmurs, rubs, or gallops. Pulmonary: No respiratory distress. No cyanosis. Bilateral lung fiels are clear to auscultation. Abdominal: Non-distended. Non-rigid. Bowels sounds are present in all four quadrants. No guarding or rebound. HEENT: Head is atraumatic. Conjunctivae not reddened. No tearing. PERRL. EOMI. Orbits atraumatic. No periorbital swelling or erythema. Oropharynx is without erythema, swelling, or exudates. Neck: Supple. No adenopathy. No meningismus. Dermatologic: Warm with good turgor. No rash. Atraumatic. Chest: Abscess right chest/axilla Musculoskeletal: Moves all extremities well. No range of motion deficits. no muscular or joint tenderness. No paraspinal muscle tenderness. no midline spinal tenderness or step-off. Genitourinary: Examination deferred Neurologic: No gross neurologic deficits. Psychiatric: Normal mood. Physical Exam - Vital signs Vitals: Temp Pulse Resp BP Pulse Ox 98.7 F 108 H 18 137/84 H 96 01/29/20 00:17 01/29/20 00:17 01/29/20 00:17 01/29/20 00:17 01/29/20 00:17 - Notes Notes: General: Well-developed, well-nourished. In no acute distress. Non-toxic appearing. Cardiac: Well-perfused. Regular rate and rhythm. No murmurs, rubs, or gallops. Pulmonary: No respiratory distress. No cyanosis. Bilateral lung jacob are clear to auscultation. Abdominal: Non-distended. Non-rigid. Bowels sounds are present in all four quadrants. No guarding or rebound. HEENT: Head is atraumatic. Conjunctivae not reddened. No tearing. PERRL. EOMI. Orbits atraumatic. No periorbital swelling or erythema. Oropharynx is without erythema, swelling, or exudates. Neck: Supple. No adenopathy. No meningismus. Dermatologic: Warm with good turgor. No rash. Atraumatic. Chest: There is an abscess to the right upper lateral chest wall adjacent to the axilla with evidence of recent incision and drainage with iodoform packing in place. Local mild erythema mildly indurated. No active bleeding or purulent drainage. Musculoskeletal: Moves all extremities well. No range of motion deficits. no muscular or joint tenderness. No paraspinal muscle tenderness. no midline spinal tenderness or step-off. Genitourinary: Examination deferred Neurologic: No gross neurologic deficits. Psychiatric: Normal mood. Course - Re-evaluation Re-evalutation: 01/29/20 03:57 Vital signs stable. Afebrile. White count normal. Packing removed. Culture obtained. Clindamycin IV 900 mg ordered 01/29/20 04:18 Patient has received Ativan because she is an alcoholic and she is only had 2 beers today. She does not plan on quitting drinking, but she is trying to reduce the amount that she drinks every day. I advised that she can go to [facility] for alcohol detox. For now in regards to her abscess, will do a round of clinda mycin. We will have the patient continue on her current medication regimen. Return in 2 days for wound recheck. By then we will have the culture back and will be able to determine if the doxycycline is effectively treating this or not. I suspect it is because when I pulled the packing out there was a clear reddish fluid drainage. There was not active purulent drainage. - Vital Signs Vital signs: Temp Pulse Resp BP Pulse Ox 98.7 F 108 H 17 117/71 98 01/29/20 00:17 01/29/20 00:17 01/29/20 04:00 01/29/20 04:00 01/29/20 04:00 - Laboratory Result Diagrams: 01/29/20 02:46 01/29/20 02:46 Laboratory results interpreted by me: 01/29/20 01/29/20 02:46 02:46 RBC 3.15 L Hgb 10.5 L Hct 30.8 L MCV 98 H RDW 14.8 H Plt Count 536 H Glucose 123 H AST 38 H ALT 37 H Alkaline Phosphatase 129 H Discharge - Discharge Clinical Impression: Abscess Alcohol dependence Qualifiers: Substance use status: unspecified alcohol-induced disorder Qualified Code(s): F10.29 - Alcohol dependence with unspecified alcohol-induced disorder Condition: Good Disposition: HOME, SELF-CARE Instructions: Abscess ([facility]), Chronic Alcoholism ([facility]) Additional Instructions: If you decide that you are ready to quit drinking, you can follow-up locally at the [facility] facility which is right next door to our emergency department. Quitting "cold turkey" can cause you to go into a very serious withdrawal, so please seek help from professionals if you wish to detox from alcohol. Continue on the cur rent antibiotic regimen that you were given. Recommend that you follow-up in the emergency department in 2 days for recheck.
[2020-01-29] MEDS ORDERED: LORAZEPAM 1 MG TABLET PO ONE (06:24)
[2020-01-29 06:25] VITALS: BP 129/82
== END 2020-01-29 06:37 | disposition home or self-care (01) ==
LOC: ER 23:38
DX: L02.213 Cutaneous abscess of chest wall (principal); Z48.01 Encounter for change or removal of surgical wound dressing; F10.29 Alcohol dependence with unspecified alcohol-induced disorder; F17.200 Nicotine dependence, unspecified, uncomplicated; I10 Essential (primary) hypertension; J45.909 Unspecified asthma, uncomplicated; Z88.1 Allergy status to other antibiotic agents
CPT/HCPCS: 99284; 96361; 96375; 96365; 36415; 87070; 87205; 80307 ×2; 85025; 87075; 87077; 80053; 81001; J3490; J2060; J7030; 87186